=== PATIENT | male | born 1980 | race Caucasian/White ===

== ENCOUNTER 2016-03-24 10:47 | Emergency (ER) | payer OTHER ==
[~2016-03-24] VITALS: Ht 177.8 cm; Wt 94.7 kg
[~2016-03-24 10:47] MED LIST: ALBUAER19 INH; OXYC-57 PO
[2016-03-24 10:49] VITALS: TEMP 37.2; Ht 177.8 cm; Wt 94.7 kg
--- NOTE | 2016-03-24 11:10 | EMERGENCY ROOM VISIT NOTE ---
History Report prepared by Mj: Giovanna Deleon Under the Supervision of: Dr. Pito Buckley M.D. First contact with patient: 10:52 Chief Complaint: ABDOMINAL PAIN Stated Complaint: LOWER RT ABD. PAIN History of Present Illness The patient is a 35 year old male who presents to the Emergency Room with complaints of intermittent right lower quadrant abdominal pain that began yesterday. Today, he currently rates his discomfort as a 7/10 in severity. The patient states that yesterday he experienced the abdominal pain for two hours. He states that the pain went away, but came back this morning. The patient denies any nausea, urinary symptoms, or difficulty moving his bowels. He notes some lightheaded today. The patient states that he has a history of colon cancer, noting that he had 2 feet of his large intestine resected in December 2014. He states that he underwent chemotherapy, but finished his course in August of 2015. The patient denies any radiation treatment. The patient notes increased pain today with movement. Source of History: patient Onset: yesterday Position: abdomen (RLQ) Symptom Intensity: 7/10 Timing: intermittent Modifying Factors (Worsening): movement Associated Symptoms: No nausea Note: Associated Symptoms: lightheaded Review of Systems All systems have been listed, reviewed, and are negative other than those previously mentioned. Please see Additional Medical History Sheet. Past Medical & Surgical Medical Problems: (1) Asthma (2) Colon cancer Surgical Problems: (1) S/P partial resection of colon Family History Cancer Social History Smoking Status: Never Smoker Smokeless Tobacco Use: No Alcohol Use: occasionally Marital Status: single Housing Status: lives alone Occupation Status: employed Current/Historical Medications Scheduled Docusate Sodium (Colace), 100 MG PO BID Scheduled PRN Oxycodone/Acetaminophen 5MG/325MG (Percocet 5MG/325MG), 1-2 TABLETS PO Q4H PRN for Pain Allergies Coded Allergies: No Known Allergies (Unverified , 03/24/16) Physical Exam Vital Signs Date Time Temp Pulse Resp B/P Pulse Ox O2 Delivery O2 Flow Rate FiO2 03/24/16 14:23 94 18 135/89 97 03/24/16 12:25 89 16 147/90 99 Room Air 03/24/16 10:49 37.2 104 18 151/101 97 Room Air Physical Exam GENERAL: Patient awake, alert, oriented x 3. Patient follows commands. Patient does not appear toxic. Patient is adequately hydrated and well- nourished. SKIN: No erythema, pallor, cyanosis or rash HEENT: Normal head, pupils equal, reactive to light and accommodation. LUNGS: Clear to auscultation. No wheezes, no rales, no rhonchi. HEART: No murmurs. No gallops. No rubs ABDOMEN:Right lower quadrant tenderness with questionable rebound and slight guarding. EXTREMITIES: No signs of trauma or infection. NEUROLOGIC: Cranial nerves II-XII within normal limits. No gross motor sensory function deficits. Medical Decision & Procedures ER Provider Diagnostic Interpretation: CT results are interpretations by the radiologist and per my review. CT OF THE ABDOMEN AND PELVIS WITH CONTRAST CLINICAL HISTORY: Right lower quadrant abdominal pain. Colon cancer. COMPARISON STUDY: CT of the abdomen and pelvis January 27, 2016 and PET/CT February 06, 2016. TECHNIQUE: Following IV administration of 110 mL of Optiray-320, axial images of the abdomen and pelvis were obtained from the lung bases to the proximal femurs. Images were reviewed in the axial, sagittal, and coronal planes. IV contrast was administered without complication. Oral contrast was administered. CT DOSE: 536.25 mGy.cm FINDINGS: Lung bases are clear. The liver, adrenal glands, kidneys and pancreas are normal. There is no biliary or pancreatic ductal dilatation mild splenomegaly is unchanged. No pneumatosis, free air or portal venous gas is present. There is no evidence for a bowel obstruction. The appendix is normal. There is no ascites. Multiple peritoneal nodules have increased in size since CT of January 27, 2016. A left omental nodule shown on image 186 of 511 measures 1.4 cm. It previously measured 0.8 cm. An implant inferior to the cecum measures 1.9 cm. It previously measured 1.5 cm. An implant within the left aspect of the pelvis measures 1.7 cm. It previously measured 0.9 cm. Numerous small pelvic implants within the left lower quadrant have increased in size as well. A few new implants are present. No suspicious skeletal lesions are present. IMPRESSION: 1. Increase in size and number of numerous peritoneal implants since CT of January 27, 2016. 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 2. No evidence of bowel obstruction. Normal appendix. Electronically signed by: Victor Manuel Guerrero M.D. 03/24/2016 1:38 PM Dictated Date/Time: 03/24/2016 1:26 PM Laboratory Results 03/24/16 11:15 Red Blood Count 5.54, Mean Corpuscular Volume 80.9, Mean Corpuscular Hemoglobin 30.0, Mean Corpuscular Hemoglobin Concent 37.1, Mean Platelet Volume 10.0, Neutrophils (%) (Auto) 63.7, Lymphocytes (%) (Auto) 25.6, Monocytes (%) (Auto) 9.0, Eosinophils (%) (Auto) 0.7, Basophils (%) (Auto) 0.6, Neutrophils # (Auto) 3.46, Lymphocytes # (Auto) 1.39, Monocytes # (Auto) 0.49, Eosinophils # (Auto) 0.04, Basophils # (Auto) 0.03 03/24/16 11:15 Test 03/24/16 11:11 03/24/16 11:15 Urine Color YELLOW Urine Appearance CLEAR (CLEAR) Urine pH 5.0 (4.5-7.5) Urine Specific [place] 1.021 (1.000-1.030) Urine Protein NEG (NEG) Urine Glucose (UA) NEG (NEG) Urine Ketones TRACE (NEG) Urine Occult Blood NEG (NEG) Urine Nitrite NEG (NEG) Urine Bilirubin NEG (NEG) Urine Urobilinogen NEG (NEG) Urine Leukocyte Esterase NEG (NEG) White Blood Count 5.43 K/uL (4.8-10.8) Red Blood Count 5.54 M/uL (4.7-6.1) Hemoglobin 16.6 g/dL (14.0-18.0) Hematocrit 44.8 % (42-52) Mean Corpuscular Volume 80.9 fL (80-100) Mean Corpuscular Hemoglobin 30.0 pg (25-34) Mean Corpuscular Hemoglobin Concent 37.1 g/dl (32-36) Platelet Count 132 K/uL (130-400) Mean Platelet Volume 10.0 fL (7.4-10.4) Neutrophils (%) (Auto) 63.7 % Lymphocytes (%) (Auto) 25.6 % Monocytes (%) (Auto) 9.0 % Eosinophils (%) (Auto) 0.7 % Basophils (%) (Auto) 0.6 % Neutrophils # (Auto) 3.46 K/uL (1.4-6.5) Lymphocytes # (Auto) 1.39 K/uL (1.2-3.4) Monocytes # (Auto) 0.49 K/uL (0.11-0.59) Eosinophils # (Auto) 0.04 K/uL (0-0.5) Basophils # (Auto) 0.03 K/uL (0-0.2) RDW Standard Deviation 36.6 fL (36.4-46.3) RDW Coefficient of Variation 12.4 % (11.5-14.5) Immature Granulocyte % (Auto) 0.4 % Immature Granulocyte # (Auto) 0.02 K/uL (0.00-0.02) Anion Gap 10.0 mmol/L (3-11) Est Creatinine Clear Calc Drug Dose 101.2 ml/min Estimated GFR () 91.5 Estimated GFR (Non- 79.0 BUN/Creatinine Ratio 14.6 (10-20) Calcium Level 9.7 mg/dl (8.5-10.1) Laboratory results as stated above per my review. ED Course 1054: Past medical records reviewed. The patient was evaluated in room C4. A complete history and physical examination was performed. 1344: I reevaluated the patient and he is resting comfortably. I discussed the exam findings with him and I discussed the treatment plan. He verbalized complete understanding and agreement. He is ready to go home. Medical Decision Nurses notes reviewed. Medical history sheet reviewed. Differential diagnosis includes but is not limited to: Appendicitis bowel obstruction diverticulitis complications from prior colon cancer. The patient was offered pain medication here but declined. Multiple labs, urinalysis and imaging were obtained. Please see above. The patient has lesions on his perineum which are now larger than he were on the last CAT scan. This is most consistent with metastatic disease. According to the patient he was told that he is tumor free. I am concerned that current pain is related to these lesions. The patient has no evidence of a bowel obstruction, diverticulitis, pancreatitis, appendicitis. I discussed results of the tests with him and instructed him to follow-up with oncology within the next 2-3 days. The patient was given a prescription for Percocet. [place] Drug Monitoring Program Search Results: patient reviewed within database, no issues identified Impression Primary Impression: Lesion of peritoneum Additional Impression: History of colon cancer Scribe Attestation The scribe's documentation has been prepared under my direction and personally reviewed by me in its entirety. I confirm that the note above accurately reflects all work, treatment, procedures, and medical decision making performed by me. Departure Information Dispostion Home / Self-Care Prescriptions Docusate Sodium (COLACE) 100 Mg Cap 100 MG PO BID, #20 CAP Prov: Pito Buckley M.D. 03/24/16 Oxycodone/Acetaminophen 5MG/325MG (PERCOCET 5MG/325MG) Tab 1-2 TABLETS PO Q4H Y for Pain, #20 TAB Prov: Pito Buckley M.D. 03/24/16 Referrals Stephen Martinez M.D. (PCP) Forms Call Back Authorization, HOME CARE DOCUMENTATION FORM, IMPORTANT VISIT INFORMATION, My [facility] Patient Instructions A Signature Page Additional Instructions 1-2 Percocet every 4 hours as needed for moderate to severe pain. Do not drive or operate machinery while taking Percocet. 1 Colace twice a day for 10 days. Follow-up with oncology within the next 2-3 days.
[2016-03-24 11:29] LABS: URINE APPEARANCE CLEAR (CLEAR); URINE BILIRUBIN NEG (NEG); URINE COLOR YELLOW; URINE NITRITE NEG (NEG); URINE SPECIFIC GRAVITY 1.021 (1.000-1.030); UROBILINOGEN NEG (NEG); ZZUR CULT IF INDIC CLEAN CATCH NO
[2016-03-24 11:30] LABS: BASO % 0.6 %; BASO ABS # 0.03 K/uL (0-0.2); COMPLETE YES; EOS % 0.7 %; HEMATOCRIT 44.8 % (42-52); IG% 0.4 %; LYMPH % 25.6 %; LYMPH ABS # 1.39 K/uL (1.2-3.4); MEAN CELL VOLUME 80.9 fL (80-100); MEAN CORPUSCULAR HGB CONC 37.1 g/dl (32-36); NEUT % 63.7 %; PLATELET COUNT 132 K/uL (130-400); RED BLOOD COUNT 5.54 M/uL (4.7-6.1); WHITE BLOOD COUNT 5.43 K/uL (4.8-10.8)
[2016-03-24 11:32] LABS: MANUAL MICROSCOPIC REQUIRED? NO; REVIEW REQ? NO
[2016-03-24 11:52] LABS: BUN/CREATININE RATIO 14.6 (10-20); CALCIUM 9.7 mg/dl (8.5-10.1); CREATININE 1.2 mg/dl (0.60-1.40)
[2016-03-24] MEDS ORDERED: OPTIRAY 320 IV PRN (12:45)
--- NOTE | 2016-03-24 13:40 | DIAGNOSTIC IMAGING REPORT ---
CT OF THE ABDOMEN AND PELVIS WITH CONTRAST CLINICAL HISTORY: Right lower quadrant abdominal pain. Colon cancer. COMPARISON STUDY: CT of the abdomen and pelvis January 27, 2016 and PET/CT February 06, 2016. TECHNIQUE: Following IV administration of 110 mL of Optiray-320, axial images of the abdomen and pelvis were obtained from the lung bases to the proximal femurs. Images were reviewed in the axial, sagittal, and coronal planes. IV contrast was administered without complication. Oral contrast was administered. CT DOSE: 536.25 mGy.cm FINDINGS: Lung bases are clear. The liver, adrenal glands, kidneys and pancreas are normal. There is no biliary or pancreatic ductal dilatation mild splenomegaly is unchanged. No pneumatosis, free air or portal venous gas is present. There is no evidence for a bowel obstruction. The appendix is normal. There is no ascites. Multiple peritoneal nodules have increased in size since CT of January 27, 2016. A left omental nodule shown on image 186 of 511 measures 1.4 cm. It previously measured 0.8 cm. An implant inferior to the cecum measures 1.9 cm. It previously measured 1.5 cm. An implant within the left aspect of the pelvis measures 1.7 cm. It previously measured 0.9 cm. Numerous small pelvic implants within the left lower quadrant have increased in size as well. A few new implants are present. No suspicious skeletal lesions are present. IMPRESSION: 1. Increase in size and number of numerous peritoneal implants since CT of January 27, 2016. 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 2. No evidence of bowel obstruction. Normal appendix. Electronically signed by: Victor Manuel Guerrero M.D. 03/24/2016 1:38 PM Dictated Date/Time: 03/24/2016 1:26 PM
[2016-03-24] MEDS ORDERED: OXYC-57 PO (14:01)
[2016-03-24] MEDS ORDERED: DOCU-94 PO (14:01)
[2016-03-24 14:23] VITALS: BP 135/89; PULSE 94; O2SAT 97
[2016-04-05] MEDS ORDERED: OXYC-57 PO (15:50)
[2016-04-05] MEDS ORDERED: VNTHFA/IN INH (15:50)
== END 2016-03-24 14:25 | disposition home or self-care (01) ==
LOC: C.EDC 10:52
DX: K66.9 Disorder of peritoneum, unspecified (principal); Z85.038 Personal history of other malignant neoplasm of large intestine; J45.909 Unspecified asthma, uncomplicated; Z98.890 Other specified postprocedural states; Z80.9 Family history of malignant neoplasm, unspecified

== ENCOUNTER 2016-04-10 05:24 | Day surgery (SDC) | payer OTHER ==
[2016-04-05 15:53] VITALS: BMI 29.0
[~2016-04-10] VITALS: Ht 177.8 cm; Wt 93.2 kg
[~2016-04-10 05:24] MED LIST changes: -ALBUAER19 INH; +VNTHFA/IN INH
[2016-04-10 05:46] VITALS: BP 153/89; PULSE 91; TEMP 36.2; O2SAT 97; Ht 177.8 cm; Wt 93.2 kg
[2016-04-10] MEDS ORDERED: LACTATED RINGER'S 1000ML 1,000 ML IV SCH ×2 (06:00→09:00)
--- NOTE | 2016-04-10 06:16 | History & Physical Bridge Note ---
H&P Re-Evaluation Bridge Note: I have examined the patient, reviewed the History & Physical and in the interval since the performance of the History & Physical I have noted the following changes of clinical significance: No changes noted mother at bedside, pt called office few days ago and now wants a-port placed(this was added to OR consent and pt signed and initial it)
[2016-04-10] MEDS ORDERED: FENTANYL CITRATE INJ 50 MCG/1 ML 2 ML VIAL ONE ×3 (06:52→09:30)
[2016-04-10] MEDS ORDERED: OXYC-57 PO (07:27)
[2016-04-10] MEDS ORDERED: MoRPHine SULFATE PF 1 MG/ML 10 ML AMP/VIAL ONE (07:37)
[2016-04-10] MEDS ORDERED: CEFAZOLIN SOD 1 GM VIAL ONE (07:52)
[2016-04-10] MEDS ORDERED: LIDOCAINE HCL 2% 2 ML VIAL (20MG/ML) ONE (07:52)
[2016-04-10] MEDS ORDERED: ROCURONIUM BROMIDE 10 MG/ML 5 ML VIAL ONE (07:52)
[2016-04-10] MEDS ORDERED: ONDANSETRON INJ 2 MG/ML 2 ML VIAL ONE (07:55)
[2016-04-10] MEDS ORDERED: GLYCOPYRROLATE INJ 0.2 MG/ML VIAL ONE (07:55)
[2016-04-10] MEDS ORDERED: NEOSTIGMINE METHYLSULFATE 5 MG/5 ML SYR ONE (07:55)
[2016-04-10] MEDS ORDERED: BACITRACIN 50000 UNIT VIAL IR ONE (07:57)
[2016-04-10] MEDS ORDERED: KETOROLAC TROMETHAMINE 30 MG/ML VIAL ONE (08:15)
[2016-04-10] MEDS ORDERED: LIDOCAINE/EPINEPHRINE 1% 20 ML VIAL INJ ONE (08:22)
[2016-04-10] MEDS ORDERED: OXYCODONE/ACETAMINOPHEN 5-325 TAB PO PRN (09:00)
[2016-04-10] MEDS ORDERED: MoRPHine SULFATE 4 MG/ML 1 ML CARP\\VIAL IV PRN (09:00)
[2016-04-10] MEDS ORDERED: ONDANSETRON INJ 2 MG/ML 2 ML VIAL IV PRN ×2 (09:00→09:30)
--- NOTE | 2016-04-10 09:00 | Discharge Instructions ---
Discharge Instructions Visit Reason for Visit: Signet Ring Cell Carcinoma Discharge Discharge Diagnosis / Problem: Laparoscopic biopsy, A-port placement Activity Recommendations Activity Limitations: per Instructions/Follow-up section Lifting Limitations: no more than 10 pounds Shower/Bathe: tomorrow Driving or Machine Use: resume 3 days after discharge Anesthesia . Post Anesthesia Instructions: If you have had General Anesthesia or IV Sedation: * Do not drive today. * Resume driving when surgeon permits. * Do not make important decisions or sign legal documents today. * Call surgeon for: 1. Temperature elevations greater than 101 degrees F. 2. Uncontrollable pain. 3. Excessive bleeding. 4. Persistent nausea and vomiting. 5. Medication intolerance (nausea, vomiting or rash). * For nausea and vomiting use only clear liquids such as: tea, soda, bouillon until nausea subsides, then gradually increase diet as tolerated. * If you have any concerns or questions, call your surgeon's office. If physician is unavailable and it is an emergency, call 911 or go to the nearest emergency room. . Instructions / Follow-Up Instructions / Follow-Up Dr. Agudelo in 1 week, call [phone] if you do not already have an appt Diet Recommendations Recommended Home Diet: no limitations Procedures Procedures Performed: Laparoscopic biopsy of abdominal mass Pending Studies Studies pending at discharge: no Medical Emergencies . Who to Call and When: Medical Emergencies: If at any time you feel your situation is an emergency, please call 911 immediately. . Non-Emergent Contact Non-Emergency issues call your: Surgeon Call Non-Emergent contact if: you have a fever, temperature is above 101.5, your pain is not controlled, wound has increased redness . . "Provider Documentation" section prepared by Ludwin Sibley.
--- NOTE | 2016-04-10 09:11 | [facility] Post Operative Brief Note ---
Immediate Operative Summary Operative Date Apr 10, 2016. Pre-Operative Diagnosis Signet cell carcinoma possible rec abdominal wall Post-Operative Diagnosis Same multiple abd wall implants Procedure(s) Performed Laparoscopic Biopsy Abdominal Masses; Aport Insertion Right Subclavian Vein, abdominal irrigation and fluid aspiration Surgeon Dr Agudelo History Tutor Surgeon(s) Ludwin Sibley PA-C Estimated Blood Loss 5ml Findings multiple abd wall implants and umbilical implants Specimens A. Abdominal Mass for genomic assay B. Umbilical Mass C abdominal fluid for cytology Cytology -peritoneal fluid
[2016-04-10] MEDS ORDERED: LIDOCAINE HCL 1% 20 ML VIAL INJ ONE ×2 (09:15→09:16)
[2016-04-10] MEDS ORDERED: PROMETHAZINE HCL INJ 6.25 MG in SODIUM CHLORIDE 0.9% 50ML 50 ML IV PRN (09:30)
[2016-04-10] MEDS ORDERED: ATROPINE SULFATE 0.1 MG/ML 5ML SYR IV PRN (09:30)
[2016-04-10] MEDS ORDERED: EpHEDrine SULFATE INJ 50 MG/ML AMP IV PRN (09:30)
--- NOTE | 2016-04-10 09:47 | DIAGNOSTIC IMAGING REPORT ---
CHEST ONE VIEW PORTABLE HISTORY: port placement COMPARISON: None. FINDINGS: The cardiac silhouette is mildly enlarged. There are low lung volumes. No focal lung consolidations to suggest pneumonia. No evidence for pulmonary edema. No pleural effusions. No pneumothorax. The right subclavian Port-A-Cath terminates in the right atrium. There is an old, healed right clavicle fracture. IMPRESSION: The right subclavian Port-A-Cath terminates in the right atrium. No pneumothorax. Electronically signed by: Sean Newton M.D. 04/10/2016 9:46 AM Dictated Date/Time: 04/10/2016 9:41 AM
[2016-04-10] MEDS ORDERED: NURSING VERBAL MED ORDER ONE ×2 (09:50→10:10)
[2016-04-10] MEDS: FENTANYL CITRATE INJ 50 MCG/1 ML 2 ML VIAL IV PRN ×2 (09:54→10:00)
--- NOTE | 2016-04-10 10:08 | OPERATIVE REPORT ---
DATE OF OPERATION: 04/10/2016 SURGEON: Dr. Agudelo. VESSEL SCRAPPER: CHELY Knight. 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 PROCEDURE: Laparoscopy, excisional biopsy of about 1.5 cm abdominal wall implant in the right lower quadrant, abdominal washout, A-port placement through the right subclavian, excisional of umbilical implant. SUMMARY: The patient was brought into the operating room theater. The abdomen was shaved and prepped with Betadine solution and properly draped. Systemic antibiotics were given. We did a laparoscopy first. The patient had what appeared to be almost some type of granulation tissue at the umbilical depth. As we cleaned this out this obviously looked like it was going to probably a Sister Clarita Arellano's node. We left this alone for now and made an incision supraumbilically sufficient enough to grab the abdominal wall with a Wanda clamp. We entered the abdominal cavity under direct visualization with a 5 mm trocar. CO2 insufflated. At this point, once we were in the abdomen, we could see aside from what was seen by CAT scan, the patient may have had multiple other implants and pictures of these were taken of all the abdominal wall mostly. I did not see any true omental implants, it seemed to be mostly abdominal wall. At this point, we then were able to excise by placing a 5 mm trocar in the right upper quadrant and one in the left upper quadrant. A nodule which was in the right lower quadrant, about 1.5 cm in size. We first incised the peritoneum around it and took it out intact. This was growing intramuscularly, probably explaining the patient's pain that he had in the right lower quadrant. Electrocautery was used to cauterize around the area. We placed this in an Endopouch and took it out intact through the umbilical port. Of note, prior to us maneuvering within the abdominal wall implants, we irrigated the abdominal cavity with some saline and took out some washout down in the pelvic area. This was placed in a trap and sent for cytology. Once this had been completed, we then closed the incision we made in the supraumbilical area with 2-0 nylon suture by placing inside intraabdominally using a suture passer and placing it out on top. We then, using electrocautery, we completely excised the umbilical implant which was about 0.5 cm to 1 cm in size in the depth of the wound. We stayed away making sure that we grossly did not leave any tumor behind. The individual trocars had been removed. We closed the wounds with 2-0 Dexon subcutaneously for the umbilical excision site and the initial opening, and 4-0 Monocryl. Steri-Strips applied. At this point, we then reprepped the subclavian area under sterile condition in a new set up. A roll had been placed underneath the clavicles. Placed the patient in Trendelenburg position. We then accessed the subclavian vein without any difficulty. With single passage followed guidewire that went in the superior vena cava. At this point fluoroscopically this was positioned. We then made a counter incision about an inch or so below that, about 2 cm in size, deepened through subcutaneous tissue. We went on and created a pocket for the reservoir. We denuded the subcutaneous fat sufficiently enough that it would easily palpate. At this point, the guidewire was then brought up into this open wound and then we placed the 7 [place] introducer without any difficulty and placed the catheter, and went without any difficulty into the area, but it wanted to go mostly into the crossover towards the left side. After manipulating it a while, we were able then to place it down into the superior vena cava right atrial area. Our imaging showed it probably was more in the atrial area, but the patient was quite big, so once he sits up I think it would be in more proper position. We attached it to the reservoir and a black bolster and secured it in place. We aspirated and flushed easily. We imaged the area and it was without any problem. We then stitched the reservoir to the subcutaneous tissue with a nylon suture x3. We closed the wound in multiple layers of 2-0 and 2-0 Dexon and 4-0 Monocryl and Steri-Strips applied. The procedure was tolerated well by the patient. Minimal blood loss. The patient was taken to recovery room in good condition. I attest to the content of the Intraoperative Record and any orders documented therein. Any exceptio ns are noted below.
[2016-04-10] MEDS ORDERED: HYDROmorphone INJ 1 MG/ML SYR ONE (10:10)
[2016-04-10 10:53] VITALS: BP 135/87; PULSE 78; TEMP 37.1; O2SAT 97
[2016-04-10 11:21] VITALS: BP 140/75; PULSE 86; TEMP 37.1; O2SAT 93
--- NOTE | 2016-04-10 11:24 | Anesthesiology Progress Note ---
Anesthesia Post Op Note Date & Time Apr 10, 2016 at 11:24 Vital Signs Pain Intensity: 5 Vital Signs Past 12 Hours Date Time Temp Pulse Resp B/P Pulse Ox O2 Delivery O2 Flow Rate FiO2 04/10/16 10:53 37.1 78 16 135/87 97 Room Air 04/10/16 10:45 36.9 72 12 133/77 99 Nasal Cannula 2 04/10/16 10:35 71 19 114/75 96 Nasal Cannula 2 04/10/16 10:25 64 12 132/82 99 Nasal Cannula 2 04/10/16 10:15 70 13 155/80 100 Nasal Cannula 2 04/10/16 10:05 63 12 150/74 99 Nasal Cannula 2 04/10/16 09:55 59 12 137/87 99 Nasal Cannula 2 04/10/16 09:45 57 12 139/85 99 Nasal Cannula 2 04/10/16 09:35 59 20 124/98 98 Nasal Cannula 2 04/10/16 09:25 69 12 149/79 100 Nasal Cannula 4 04/10/16 09:15 36.1 107 16 140/94 98 Nasal Cannula 4 04/10/16 05:46 36.2 91 20 153/89 97 Room Air Notes Mental Status: alert / awake / arousable, participated in evaluation Pt Amnestic to Procedure: Yes Nausea / Vomiting: adequately controlled Pain: adequately controlled Airway Patency, RR, SpO2: stable & adequate BP & HR: stable & adequate Hydration State: stable & adequate Anesthetic Complications: no major complications apparent Pain adequately controlled after fentanyl and dilaudid
[2016-04-10 11:50] VITALS: BP 122/75; PULSE 71; O2SAT 99
[2016-04-10 12:50] VITALS: BP 112/75; PULSE 88; TEMP 36.7; O2SAT 94
== END 2016-04-10 13:25 | disposition home or self-care (01) ==
LOC: C.ACU 05:24
PROVIDERS: ATTEND Surgery
DX: C18.7 Malignant neoplasm of sigmoid colon (principal); C49.4 Malignant neoplasm of connective and soft tissue of abdomen; J45.909 Unspecified asthma, uncomplicated; E66.9 Obesity, unspecified; Z85.038 Personal history of other malignant neoplasm of large intestine; Z68.30 Body mass index [BMI] 30.0-30.9, adult; Z80.0 Family history of malignant neoplasm of digestive organs; Z82.49 Family history of ischemic heart disease and other diseases of the circulatory system

== ENCOUNTER → 2016-07-31 | Outpatient (CLI) | payer OTHER ==
[~2016-07-31] MED LIST changes: +IBUP600T44 PO; +MRN5 PO; +OXYC1TAB3 PO; +TRAM-10 PO
--- NOTE | 2016-07-31 12:43 | DIAGNOSTIC IMAGING REPORT ---
CHEST CT WITH CONTRAST CT DOSE: 901.36 mGy.cm HISTORY: Colon carcinoma COLON CA TECHNIQUE: Multiaxial CT images of the chest were performed following the intravenous administration of contrast. COMPARISON: 01/19/2015, PET/CT 04/02/2016 FINDINGS: The lungs are clear. The mediastinal vascular structures are within normal limits. No mediastinal or hilar lymphadenopathy. No pleural effusion or pneumothorax. Limited views of the upper abdomen demonstrate a normal liver. The spleen is somewhat progressive in terms of size IMPRESSION: 1. No significant abnormality identified within the chest. 2. Mildly progressive splenomegaly Electronically signed by: Stephen Abarca M.D. 07/31/2016 12:42 PM Dictated Date/Time: 07/31/2016 12:38 PM
--- NOTE | 2016-07-31 12:50 | DIAGNOSTIC IMAGING REPORT ---
CT SCAN OF THE ABDOMEN AND PELVIS WITH IV CONTRAST CLINICAL HISTORY: Colon cancer. COMPARISON STUDY: 03/24/2016 TECHNIQUE: Following the IV administration of 117 cc of Optiray 320, CT scan of the abdomen and pelvis is performed from the lung bases to the proximal femora. Images are reviewed in the axial, sagittal, and coronal planes. IV contrast was administered without complication. Automated dose control exposure was utilized. The patient vomited the majority of the enteric contrast. FINDINGS: Lung bases: The tip of a central venous infusion port terminates at the cavoatrial junction. The heart is normal in size and without pericardial effusion. The lung bases are clear. Liver: The contrast-enhanced liver is normal in size, contour, and attenuation. There is no intrahepatic biliary ductal dilatation. The hepatic veins and portal veins are patent. Gallbladder: Unremarkable. Spleen: The spleen is enlarged measuring 16 cm in length. Pancreas: Unremarkable. Adrenal glands: Unremarkable. Kidneys: The contrast enhanced kidneys are normal in size and without hydronephrosis. The kidneys enhance symmetrically. Abdominal vasculature: The abdominal aorta is normal in course and caliber. Bowel: No bowel obstruction is seen. There is mild colonic fecal retention. The appendix is well-visualized and normal. Peritoneum: There is no intraperitoneal free air or abdominal ascites. There is a tiny fat-containing umbilical hernia. Numerous peritoneal implants are again identified. There has been a mixed response as compared to the 03/24/2016 examination with overall progression of disease. A solar sales representative lesion in the deep pelvis on image #391 has decreased in size, now measuring up to 0.8 cm in thickness (previously measured up to 1.7 cm). A lesion in the left anterior pelvis seen on image #353 has increased in size measuring 2.3 x 1.6 cm (previously measuring 2.0 x 0.9 cm). A lesion on image #365 in the anterior left pelvis has also increased in size measuring up to 1.3 cm (previously measuring up to 1.1 cm). A lesion in the left upper pelvic mesentery seen on image #211 measures 2.0 x 2.1 cm (previously measuring 1.5 x 1.7 cm). Additional lesions in the right lower quadrant on image #308 and in the left upper quadrant image #184 have also increased in size. Lymphadenopathy: None. Pelvic viscera: The bladder, prostate, and seminal vesicles are normal as imaged. Skeletal structures: No lytic or blastic lesions are seen. There is a left-sided pars defect at L5. IMPRESSION: 1. Mixed response with overall progression of peritoneal metastatic disease as compared to 03/24/2016. 2. No abdominal ascites is identified. 3. No bowel obstruction is seen. 4. Splenomegaly. Electronically signed by: Rayo Lopez M.D. 07/31/2016 12:49 PM Dictated Date/Time: 07/31/2016 12:39 PM
== END ==
LOC: C.CTS 09:54
PROVIDERS: ATTEND Nurse Practitioner Family
DX: C18.7 Malignant neoplasm of sigmoid colon (principal)

== ENCOUNTER → 2016-10-09 | Outpatient (CLI) | payer OTHER ==
[~2016-10-09] MED LIST changes: -IBUP600T44 PO; -MRN5 PO; +OPTIRAY 320 IV PRN; -OXYC1TAB3 PO; -TRAM-10 PO
--- NOTE | 2016-10-09 09:22 | DIAGNOSTIC IMAGING REPORT ---
ABD/PELVIS IV AND ORAL CONT CT DOSE: HISTORY: Colon carcinoma COLON CA TECHNIQUE: Multiaxial CT images of the abdomen and pelvis were performed following the use of intravenous and oral contrast. A dose lowering technique was utilized adhering to the principles of ALARA. COMPARISON STUDY: 07/31/2016 FINDINGS: Lung bases are clear. Liver is homogeneous. Gallbladder is negative for distention. Kidneys enhance uniformly. Spleen remains moderately enlarged. It is unchanged from the prior exam. Pancreas is uniform. Moderate increase in fecal load throughout the colon consistent with a component of fecal stasis. This is unchanged. 1.6 cm pericolonic nodule is unchanged. All additional omental/mesenteric implants remain stable. There are no new or interval findings. Left lateral pelvic sidewall nodule remains stable. Bladder is midline. There is no free fluid within the pelvic cul-de-sac. Osseous structures appear unremarkable. IMPRESSION: Stable peritoneal metastatic disease. No change compared to the prior exam. No new or interval findings. Mild stable splenomegaly. The above report was generated using voice recognition software. It may contain grammatical, syntax or spelling errors. Electronically signed by: Stephen Abarca M.D. 10/09/2016 9:20 AM Dictated Date/Time: 10/09/2016 9:14 AM
--- NOTE | 2016-10-09 09:27 | DIAGNOSTIC IMAGING REPORT ---
CT OF THE CHEST WITH IV CONTRAST CLINICAL HISTORY: Colon cancer. COMPARISON STUDY: Chest CT July 31, 2016 and PET/CT April 02, 2016. TECHNIQUE: Following IV administration of 116 mL of Optiray-320, helical axial images of the chest were obtained. Sagittal and coronal reconstructions were viewed as well as maximal intensity projections on an independent 3-D workstation. A dose lowering technique was utilized adhering to the principles of ALARA. CT DOSE: 1538.62 mGycm FINDINGS: No enlarged axillary, mediastinal or hilar lymph nodes are present. The size of the heart is normal. There is no pericardial effusion. A right subclavian [id number] is in place. There is bilateral gynecomastia. The central airways are patent. There are no pulmonary nodules. No suspicious osseous lesions are present. No pneumothorax or pleural effusion is present. The abdomen and pelvis will be reported separately. Mild splenomegaly is unchanged. IMPRESSION: No evidence of metastatic disease within the chest. Electronically signed by: Victor Manuel Guerrero M.D. 10/09/2016 9:26 AM Dictated Date/Time: 10/09/2016 9:14 AM
== END | disposition home or self-care (01) ==
LOC: C.CTS 06:40
PROVIDERS: ATTEND Nurse Practitioner Family
DX: C18.7 Malignant neoplasm of sigmoid colon (principal)

== ENCOUNTER → 2016-12-20 | Outpatient (CLI) | payer OTHER ==
--- NOTE | 2016-12-20 12:10 | DIAGNOSTIC IMAGING REPORT ---
CT OF THE ABDOMEN AND PELVIS WITH CONTRAST CLINICAL HISTORY: Colon cancer. COMPARISON STUDY: PET CT April 02, [address] of the abdomen and pelvis October 09, 2016. TECHNIQUE: Following IV administration of 100 mL of Optiray-320, axial images of the abdomen and pelvis were obtained from the lung bases to the proximal femurs. Images were reviewed in the axial, sagittal, and coronal planes. IV contrast was administered without complication. A dose lowering technique was utilized adhering to the principles of ALARA. Oral contrast was administered. FINDINGS: The chest CT will be reported separately. The liver, adrenal glands, kidneys and pancreas are normal. Mild splenomegaly is unchanged. There is no biliary or pancreatic ductal dilatation. There is no evidence for a bowel obstruction. Numerous peritoneal/omental implants are noted. Several these are unchanged however the majority have mildly increased in size since CT of October 09, 2016. A left omental implant shown on image 38 of 103 measures 1.8 cm. It previously measured 1.7 cm. A midline supraumbilical implant shown on image 45 measures 1.1 cm. It previously measured 0.8 cm. A left lower quadrant mesenteric implant measures 2.8 cm. It previously measured 2.1 cm. Right paracolic gutter implant shown image 59 measures 2 cm. It previously measured 1.9 cm. Peritoneal implants within the central aspect of the pelvis have increased. These now measure 3.4 cm in aggregate. These previously measured 2.4 cm. No suspicious osseous lesions are present. No hydronephrosis is present. IMPRESSION: Mild increase in size and number of numerous peritoneal implants since CT of October 09, 2016 with moderate increase in size of a left lower quadrant mesenteric implant. The findings represent moderate progression of peritoneal spread of malignancy. Electronically signed by: Victor Manuel Guerrero M.D. 12/20/2016 12:09 PM Dictated Date/Time: 12/20/2016 11:58 AM
--- NOTE | 2016-12-20 12:10 | DIAGNOSTIC IMAGING REPORT ---
(CHEST) THORAX WITH CLINICAL HISTORY: 36 years-old Male presenting with COLON CA C18.7, follow-up. TECHNIQUE: Multidetector CT imaging of the chest was performed after the administration of intravenous contrast. IV contrast: 100 mL of Optiray 320. A dose lowering technique was used consistent with the principles of ALARA (as low as reasonably achievable). COMPARISON: 10/09/2016. CT DOSE (mGy.cm): The estimated cumulative dose is 1312.46 mGy.cm. FINDINGS: Plate Grainer topogram: Unremarkable. On soft tissue windows, bilateral gynecomastia. Normal thyroid and thoracic inlet. Right subclavian Mediport terminates in the SVC. No axillary, supraclavicular, hilar, or mediastinal lymphadenopathy. Normal aorta. Normal heart size. No pericardial or pleural effusion. The spleen is incompletely imaged but appears prominent. On lung windows, no focal infiltrate or nodule. Airways patent. On bone windows, normal osseous structures. IMPRESSION: 1. No evidence of intrathoracic metastatic disease. Electronically signed by: Bridger Noriega M.D. 12/20/2016 12:09 PM Dictated Date/Time: 12/20/2016 12:01 PM
== END | disposition home or self-care (01) ==
LOC: C.CTS 09:31
PROVIDERS: ATTEND Nurse Practitioner Family
DX: C18.7 Malignant neoplasm of sigmoid colon (principal)

== ENCOUNTER 2017-01-03 09:25 | Emergency (ER) | payer OTHER ==
[~2017-01-03] VITALS: Ht 177.8 cm; Wt 100.2 kg
[~2017-01-03 09:25] MED LIST changes: -OPTIRAY 320 IV PRN
[2017-01-03 09:28] VITALS: TEMP 37.1; Ht 177.8 cm; Wt 100.2 kg
[2017-01-03] MEDS ORDERED: ONDANSETRON INJ 2 MG/ML 2 ML VIAL IV STA (09:43)
[2017-01-03] MEDS ORDERED: SODIUM CHLORIDE 0.9% 1000ML 2,000 ML IV STA (09:43)
[2017-01-03] MEDS ORDERED: MoRPHine SULFATE 10 MG/ML CARP/VIAL IV STA ×2 (09:43→11:33)
[2017-01-03] MEDS ORDERED: TRAM-10 PO (09:53)
[2017-01-03] MEDS ORDERED: IBUP600T44 PO (09:53)
[2017-01-03] MEDS ORDERED: MRN5 PO (09:53)
[2017-01-03 09:57] LABS: BASO % 0.5 %; BASO ABS # 0.03 K/uL (0-0.2); COMPLETE YES; HEMATOCRIT 42.5 % (42-52); IG% 0.2 %; LYMPH % 16.6 %; LYMPH ABS # 0.99 K/uL (1.2-3.4); MEAN CELL VOLUME 83.3 fL (80-100); MEAN PLATELET VOLUME 9.6 fL (7.4-10.4); MONO % 8.7 %; PLATELET COUNT 150 K/uL (130-400); WHITE BLOOD COUNT 5.96 K/uL (4.8-10.8)
[2017-01-03 10:03] LABS: ISTAT CREATININE 0.9 mg/dl (0.6-1.3); ISTAT HEMOGLOBIN 15.3 g/dl (14.0-18.0); ISTAT IONIZED CALCIUM 1.2 mmol/l (1.12-1.32)
[2017-01-03 10:14] LABS: BUN/CREATININE RATIO 10.3 (10-20); CALCIUM 9.1 mg/dl (8.5-10.1); CREATININE 0.94 mg/dl (0.60-1.40); POTASSIUM 3.8 mmol/L (3.5-5.1)
--- NOTE | 2017-01-03 10:34 | DIAGNOSTIC IMAGING REPORT ---
CT ABD/PELVIS IV CONTRAST ONLY CLINICAL HISTORY: Rectal carcinoma. Coccygeal pain. COMPARISON STUDY: 10 x 17 TECHNIQUE: Following the IV administration of 94 mL of Optiray-320, CT scan of the abdomen and pelvis was performed from the lung bases to the proximal femurs. Images are reviewed in the axial, sagittal, and coronal planes. IV contrast was administered without complication. A dose lowering technique was utilized adhering to the principles of ALARA. CT DOSE: 1170.28 mGycm FINDINGS: Lower chest: There are minimal bibasilar atelectatic changes Liver: The contrast-enhanced liver is normal in size, contour, and attenuation. There is no intrahepatic biliary ductal dilatation. The hepatic veins and portal veins are patent. Gallbladder: Equivocal cholelithiasis Spleen: Top normal in size measuring 12 cm Pancreas: Unremarkable. Adrenal glands: Unremarkable. Kidneys: There is symmetric renal cortical enhancement. The kidneys are normal in size without hydronephrosis. Bowel: There are no transition zone to indicate bowel obstruction. There is no acute diverticulitis. There is no evidence of acute appendicitis. Peritoneum: No free air is visualized. There is no significant ascites. There are multiple peritoneal nodules consistent with metastatic disease. The nodules appear slightly larger than on the preceding study. Vasculature: The abdominal aorta is normal in course and caliber. Adenopathy: None. Pelvic viscera: The bladder, and pelvic viscera are unremarkable. Skeletal structures: There is a left L5 pars defect area no destructive lesions are visualized. IMPRESSION: 1. Slight further increase in the size and number of multiple peritoneal implants, consistent with progressive metastatic disease. 2. No evidence of bowel obstruction. No evidence of free air Electronically signed by: Pankaj Bustos M.D. 01/03/2017 10:32 AM Dictated Date/Time: 01/03/2017 10:26 AM
[2017-01-03 11:34] LABS: URINE APPEARANCE CLEAR (CLEAR); URINE BILIRUBIN NEG (NEG); URINE COLOR YELLOW; URINE EPITHELIAL CELL AUTO 0-5 /lpf (0-5); URINE NITRITE NEG (NEG); URINE SPECIFIC GRAVITY 1.025 (1.000-1.030); UROBILINOGEN NEG (NEG); ZZUR CULT IF INDIC CLEAN CATCH NO
[2017-01-03 11:37] LABS: MANUAL MICROSCOPIC REQUIRED? NO; REVIEW REQ? NO
[2017-01-03] MEDS ORDERED: MoRPHine SULFATE 4 MG/ML 1 ML CARP\\VIAL ONE (11:56)
[2017-01-03] MEDS ORDERED: MoRPHine SULFATE 2 MG/ML CARP ONE (11:56)
[2017-01-03] MEDS ORDERED: OXYC1TAB3 PO (12:32)
[2017-01-03 12:57] VITALS: BP 133/87; PULSE 81; O2SAT 95
--- NOTE | 2017-01-03 14:58 | EMERGENCY ROOM VISIT NOTE ---
History Report prepared by Mj: Clifford Navarro Under the Supervision of: Dr. Brian Sarkar D.O. First contact with patient: 09:33 Chief Complaint: ABDOMINAL PAIN Stated Complaint: SEVERE PAIN/TORSO, ABD. Nursing Triage Summary: Pain in the tailbone area and also abdominal pain. pt states that he just finished his last chemo treatment (30 in total) for colon cancer. Pain in the tailbone started last week, was coming and going, now constant and feels worse per the pt. Denies injury. Took tramadol at approx 0700, hydrocodone at 0830 and marinol at approx 0900 History of Present Illness The patient is a 36 year old male who presents to the Emergency Room with complaints of pain to his tailbone that began last week. He rates his pain a 9/ 10 in severity. The patient has a history of colorectal cancer and resections with metastasis to his abdomen. He has baseline abdominal pain secondary to his metastases, however the tail bone pain is new. He finished his 30th chemotherapy treatment 3 weeks ago but needs to see a specialist in [place] because he states that the treatment did not work. He denies any fevers, nausea , vomiting, diarrhea, chest pain, shortness of breath, abnormal urinary symptoms , melena, hematochezia, recent trauma, or pain with defecation. He denies any family history of cancers. He has been having 3 bowel movements a day. No pain with bowel movements. No blood in stool. They're not loose. No pain with urination Source of History: patient Onset: 1 week ago Position: other (Tail bone) Symptom Intensity: 9/10 Quality: ache Timing: constant Associated Symptoms: + abdominal pain, No fevers, No chest pain, No SOB, No nausea, No vomiting, No melena, No hematochezia, No diarrhea, No urinary symptoms Review of Systems See HPI for pertinent positives & negatives. A total of 10 systems reviewed and were otherwise negative. Past Medical & Surgical Medical Problems: (1) Asthma (2) Colon cancer Surgical Problems: (1) S/P partial resection of colon Family History Cancer Social History Smoking Status: Never Smoker Alcohol Use: occasionally Marital Status: single Housing Status: lives alone Occupation Status: employed Current/Historical Medications Scheduled Dronabinol (Marinol), 5 MG PO TID Ibuprofen (Motrin), 600 MG PO DAILY Scheduled PRN Oxycodone Immediate Rel Tab (Roxicodone Ir), 5 MG PO Q4H PRN for Severe Pain Oxycodone/Acetaminophen 5MG/325MG (Percocet 5MG/325MG), 1 TAB PO BID PRN for Pain Tramadol (Ultram), 50 MG PO BID PRN for Pain Allergies Coded Allergies: No Known Allergies (Unverified , 01/03/17) Physical Exam Vital Signs Date Time Temp Pulse Resp B/P (MAP) Pulse Ox O2 Delivery O2 Flow Rate FiO2 01/03/17 12:57 81 20 133/87 95 01/03/17 12:48 80 01/03/17 12:01 88 20 148/91 99 Room Air 01/03/17 11:13 115 18 145/94 97 Room Air 01/03/17 09:42 78 01/03/17 09:28 37.1 128 20 144/99 96 Room Air Physical Exam GENERAL: Sitting up in bed, alert, chronically ill appearing, disheveled, minimal distress, non-toxic EYE EXAM: normal conjunctiva OROPHARYNX: no exudate, no erythema, lips, buccal mucosa, and tongue normal and mucous membranes are moist NECK: supple, no nuchal rigidity, no adenopathy, non-tender LUNGS: Clear to auscultation. Normal chest wall mechanics HEART: no murmurs, S1 normal and S2 normal ABDOMEN: abdomen soft, non-tender, normo-active bowel sounds, no masses, no rebound or guarding. Multiple old incisions that are intact. BACK: Back is symmetrical on inspection and there is no deformity, no midline tenderness, no CVA tenderness. SKIN: no rashes and no bruising UPPER EXTREMITIES: upper extremities are grossly normal. LOWER EXTREMITIES: No pitting edema. NEURO EXAM: Normal sensorium, cranial nerves II-XII grossly intact, normal speech, no gross weakness of arms, no gross weakness of legs. Medical Decision & Procedures ER Provider Diagnostic Interpretation: Radiology results as stated below per my review and the radiologist's interpretation: CT ABD/PELVIS IV CONTRAST ONLY CLINICAL HISTORY: Rectal carcinoma. Coccygeal pain. COMPARISON STUDY: x 17 TECHNIQUE: Following the IV administration of 94 mL of Optiray-320, CT scan of the abdomen and pelvis was performed from the lung bases to the proximal femurs. Images are reviewed in the axial, sagittal, and coronal planes. IV contrast was administered without complication. A dose lowering technique was utilized adhering to the principles of ALARA. CT DOSE: 1170.28 mGycm FINDINGS: Lower chest: There are minimal bibasilar atelectatic changes Liver: The contrast-enhanced liver is normal in size, contour, and attenuation. There is no intrahepatic biliary ductal dilatation. The hepatic veins and portal veins are patent. Gallbladder: Equivocal cholelithiasis Spleen: Top normal in size measuring 12 cm Pancreas: Unremarkable. Adrenal glands: Unremarkable. Kidneys: There is symmetric renal cortical enhancement. The kidneys are normal in size without hydronephrosis. Bowel: There are no transition zone to indicate bowel obstruction. There is no acute diverticulitis. There is no evidence of acute appendicitis. Peritoneum: No free air is visualized. There is no significant ascites. There are multiple peritoneal nodules consistent with metastatic disease. The nodules appear slightly larger than on the preceding study. Vasculature: The abdominal aorta is normal in course and caliber. Adenopathy: None. Pelvic viscera: The bladder, and pelvic viscera are unremarkable. Skeletal structures: There is a left L5 pars defect area no destructive lesions are visualized. IMPRESSION: 1. Slight further increase in the size and number of multiple peritoneal implants, consistent with progressive metastatic disease. 2. No evidence of bowel obstruction. No evidence of free air Electronically signed by: Pankaj Bustos M.D. 01/03/2017 10:32 AM Dictated Date/Time: 01/03/2017 10:26 AM Laboratory Results 01/03/17 09:45 Red Blood Count 5.10, Mean Corpuscular Volume 83.3, Mean Corpuscular Hemoglobin 30.0, Mean Corpuscular Hemoglobin Concent 36.0, Mean Platelet Volume 9.6, Neutrophils (%) (Auto) 73.0, Lymphocytes (%) (Auto) 16.6, Monocytes (%) (Auto) 8.7, Eosinophils (%) (Auto) 1.0, Basophils (%) (Auto) 0.5, Neutrophils # (Auto) 4.35, Lymphocytes # (Auto) 0.99, Monocytes # (Auto) 0.52, Eosinophils # (Auto) 0.06, Basophils # (Auto) 0.03 01/03/17 09:45 Test 01/03/17 09:45 01/03/17 09:49 01/03/17 11:15 White Blood Count 5.96 K/uL (4.8-10.8) Red Blood Count 5.10 M/uL (4.7-6.1) Hemoglobin 15.3 g/dL (14.0-18.0) Hematocrit 42.5 % (42-52) Mean Corpuscular Volume 83.3 fL (80-100) Mean Corpuscular Hemoglobin 30.0 pg (25-34) Mean Corpuscular Hemoglobin Concent 36.0 g/dl (32-36) Platelet Count 150 K/uL (130-400) Mean Platelet Volume 9.6 fL (7.4-10.4) Neutrophils (%) (Auto) 73.0 % Lymphocytes (%) (Auto) 16.6 % Monocytes (%) (Auto) 8.7 % Eosinophils (%) (Auto) 1.0 % Basophils (%) (Auto) 0.5 % Neutrophils # (Auto) 4.35 K/uL (1.4-6.5) Lymphocytes # (Auto) 0.99 K/uL (1.2-3.4) Monocytes # (Auto) 0.52 K/uL (0.11-0.59) Eosinophils # (Auto) 0.06 K/uL (0-0.5) Basophils # (Auto) 0.03 K/uL (0-0.2) RDW Standard Deviation 39.0 fL (36.4-46.3) RDW Coefficient of Variation 13.1 % (11.5-14.5) Immature Granulocyte % (Auto) 0.2 % Immature Granulocyte # (Auto) 0.01 K/uL (0.00-0.02) Est Creatinine Clear Calc Drug Dose 131.4 ml/min Estimated GFR () 122.1 Estimated GFR (Non- 105.4 BUN/Creatinine Ratio 10.3 (10-20) Calcium Level 9.1 mg/dl (8.5-10.1) Total Bilirubin 0.8 mg/dl (0.2-1) Direct Bilirubin 0.2 mg/dl (0-0.2) Aspartate Amino Transf (AST/SGOT) 15 U/L (15-37) Alanine Aminotransferase (ALT/SGPT) 26 U/L (12-78) Alkaline Phosphatase 82 U/L (45-117) Total Protein 7.6 gm/dl (6.4-8.2) Albumin 3.8 gm/dl (3.4-5.0) Lipase 123 U/L (73-393) Bedside Hemoglobin 15.3 g/dl (14.0-18.0) Bedside Hematocrit 45 % (42-52) Bedside Sodium 139 mEq/L (135-144) Bedside Potassium 3.8 mEq/L (3.3-5.0) Bedside Chloride 101 mEq/L (101-112) Bedside Total CO2 27 mEq/l (24-31) Anion Gap 16.0 mmol/L (16-25) Bedside Blood Urea Nitrogen 9 mg/dl (7-18) Bedside Creatinine 0.9 mg/dl (0.6-1.3) Bedside Glucose (other) 113 mg/dl (70-99) Bedside Ionized Calcium ([place]) 1.20 mmol/l (1.12-1.32) Urine Color YELLOW Urine Appearance CLEAR (CLEAR) Urine pH 7.0 (4.5-7.5) Urine Specific [place] 1.025 (1.000-1.030) Urine Protein NEG (NEG) Urine Glucose (UA) NEG (NEG) Urine Ketones NEG (NEG) Urine Occult Blood NEG (NEG) Urine Nitrite NEG (NEG) Urine Bilirubin NEG (NEG) Urine Urobilinogen NEG (NEG) Urine Leukocyte Esterase NEG (NEG) Urine WBC (Auto) 0 /hpf (0-5) Urine RBC (Auto) 0-4 /hpf (0-4) Urine Hyaline Casts (Auto) 0 /lpf (0-5) Urine Epithelial Cells (Auto) 0-5 /lpf (0-5) Urine Bacteria (Auto) NEG (NEG) Laboratory results per my review. Medications Administered Medications (Trade) Dose Ordered Sig/Luis Manuel Route Start Time Stop Time Status Last Admin Dose Admin Sodium Chloride 2,000 ml @ 999 mls/hr Q2H1M STAT IV 01/03/17 09:43 01/03/17 11:43 DC 01/03/17 09:55 999 MLS/HR Ondansetron HCl (Zofran Inj) 4 mg NOW STAT IV 01/03/17 09:43 01/03/17 09:59 DC 01/03/17 09:55 4 MG Morphine Sulfate (MoRPHine SULFATE INJ) 6 mg NOW STAT IV 01/03/17 09:43 10/19/17 09:59 DC 01/03/17 09:56 6 MG Morphine Sulfate (MoRPHine SULFATE INJ) 2 mg STK-MED ONCE .ROUTE 01/03/17 11:56 01/03/17 11:57 DC 01/03/17 11:58 2 MG Morphine Sulfate (MoRPHine SULFATE INJ) 4 mg STK-MED ONCE .ROUTE 01/03/17 11:56 01/03/17 11:57 DC 01/03/17 11:59 4 MG ECG Indication: abdominal pain Rate (beats per minute): 112 Rhythm: sinus tachycardia Findings: no ectopy, other (Normal axis) ED Course ED COURSE: Vital signs were reviewed and showed tachycardia. The patients medical record was reviewed The above diagnostic studies were performed and reviewed. ED treatments and interventions as stated above. 0933: The patient was evaluated in room A12. A complete history and physical examination was performed. 0943: Ordered Morphine Sulfate 6 mg IV, Zofran Inj 4 mg IV, Sodium Chloride 2000 ml @ 999 mls/hr IV 1133: Ordered Morphine Sulfate 6 mg IV 1146: I spoke with Dr. Huber of Oncology at this time. He agrees with the treatment plan. 1300: Upon reevaluation, the patient is resting. I discussed my findings with the patient and he understands and agrees with the treatment plan. Based on the patients age, coexisting illnesses, exam and lab findings the decision to treat as an outpatient was made. The patient remained stable while under my care. The patient appeared well at the time of discharge. Medical Decision Differential diagnoses includes but is not limited to gastritis, peptic ulcer disease, GERD, gallbladder disease, pancreatitis, small bowel obstruction, acute coronary syndrome, pericarditis, ischemic bowel, irritable bowel disease, irritable bowel syndrome, appendicitis, diverticulitis, malignancy, hernia, urinary tract infection, torsion, perforation, trauma, infectious. Patient is a 36-year-old male who presents to ER with past medical history colorectal cancer on chemotherapy. He notes his pain is in his lower pelvis. No trauma. No fevers of 100.4. Pain has been present since Saturday. CBC all BMP, LFTs, bilirubin and lipase unremarkable. UA shows no signs of infection. CT of the abdomen and pelvis shows worsening of the cancer but no perforation or obstruction. Patient was updated regards to his findings. He was given 2 L normal saline. Heart rate [place]. He was given IV morphine. He did feel significant better. Discussed with his oncologist who agrees with following him up as an outpatient. OxyIR was given. PDMP was reviewed. Discussed with Pt concerning signs and symptoms to watch out for. Pt was instructed to follow up with their PCP and discussed with the patient their option to return to the ED at anytime for persistent or worsening symptoms. The appropriate anticipatory guidance and out-patient management, including indications for return to the emergency department, were explained at length to the patient and understood. [place] Drug Monitoring Program Search Results: patient reviewed within database, no issues identified Medication Reconcilliation Current Medication List: was personally reviewed by me Blood Pressure Screening Patient's blood pressure: Normal blood pressure Blood pressure disposition: Did not require urgent referral Consults Time Called: 1140 Consulting Physician: Dr. Huber - Oncology Returned Call: [phone] We discussed the patient's case. He agrees with the treatment plan. Impression Primary Impression: Abdominal pain Scribe Attestation The scribe's documentation has been prepared under my direction and personally reviewed by me in its entirety. I confirm that the note above accurately reflects all work, treatment, procedures, and medical decision making performed by me. Departure Information Dispostion Home / Self-Care Prescriptions Oxycodone Immediate Rel Tab (ROXICODONE IR) 5 Mg Tab 5 MG PO Q4H Y for Severe Pain, #10 TAB Prov: Brian Sarkar, DO 01/03/17 Referrals Stephen Martinez M.D. (PCP) Forms Call Back Authorization, HOME CARE DOCUMENTATION FORM, IMPORTANT VISIT INFORMATION Patient Instructions Abdominal Pain - [facility] Additional Instructions Please follow up with your primary care doctor with in the next 24 hours. Any worsening of your symptoms, please return to the ED immediately. This includes any fevers greater than 100.4, worsening pain, chest pain, shortness breath, persistent nausea, vomiting, unable to eat or drink, or any other concerning signs or symptoms from your standpoint. You were given medications during this visit that will inhibit your ability to drive, operate machinery and work. Please do NOT drive, operate machinery or work for the next 12hrs. You were also given a prescription for a narcotic. While taking this medication you should also not drive, operate machinery and or work. Problem Qualifiers Primary Impression: Abdominal pain Abdominal location: generalized Qualified Codes: R10.84 - Generalized abdominal pain
== END 2017-01-03 12:58 | disposition home or self-care (01) ==
LOC: C.EDB 09:26 → C.EDA 12:58
DX: R10.84 Generalized abdominal pain (principal); C18.7 Malignant neoplasm of sigmoid colon; C79.89 Secondary malignant neoplasm of other specified sites; J45.909 Unspecified asthma, uncomplicated; Z90.49 Acquired absence of other specified parts of digestive tract; Z79.899 Other long term (current) drug therapy

== ENCOUNTER 2017-05-19 00:10 | Inpatient (IN) | payer OTHER ==
[2017-05-19] VITALS (8 sets, daily range): BP systolic 135–176; BP diastolic 77–115; PULSE 121–156; TEMP 36.5–38.5; O2SAT 94–99; Ht 177.8 cm; Wt 67.9 kg
[~2017-05-19] VITALS: Ht 177.8 cm; Wt 67.9 kg
[~2017-05-19 00:10] MED LIST changes: +IBUP600T44 PO; +MRN5 PO; +OXYC1TAB3 PO; +TRAM-10 PO; -VNTHFA/IN INH
[2017-05-19] MEDS ORDERED: SODIUM CHLORIDE 0.9% 1000ML 1,000 ML IV STA ×2 (00:15→01:53)
[2017-05-19] MEDS ORDERED: LORAZEPAM 2 MG/ML 1 ML VIAL IV STA (00:15)
[2017-05-19 01:06] LABS: BASO % 0.1 %; BASO ABS # 0.01 K/uL (0-0.2); EOS % 0.5 %; EOS ABS # 0.06 K/uL (0-0.5); HEMATOCRIT 25.3 % (42-52); HEMOGLOBIN 8.3 g/dL (14.0-18.0); IG# 0.08 K/uL (0.00-0.02); LYMPH % 6.7 %; LYMPH ABS # 0.78 K/uL (1.2-3.4); MEAN CELL VOLUME 69.3 fL (80-100); MEAN CORPUSCULAR HEMOGLOBIN 22.7 pg (25-34); MEAN CORPUSCULAR HGB CONC 32.8 g/dl (32-36); MONO % 10.5 %; MONO ABS # 1.21 K/uL (0.11-0.59); NEUT % 81.5 %; NEUT ABS # 9.43 K/uL (1.4-6.5); PLATELET COUNT 368 K/uL (130-400); RED CELL DISTRIBUTION WIDTH CV 16.1 % (11.5-14.5); RED CELL DISTRIBUTION WIDTH SD 40.3 fL (36.4-46.3); WHITE BLOOD COUNT 11.57 K/uL (4.8-10.8)
[2017-05-19 01:18] LABS: INR 1.3 (0.9-1.1)
[2017-05-19 01:28] LABS: BLOOD UREA NITROGEN 15 mg/dl (7-18); CALCIUM 8.8 mg/dl (8.5-10.1); CARBON DIOXIDE 26 mmol/L (21-32); CREATININE 0.86 mg/dl (0.60-1.40); GLUCOSE 127 mg/dl (70-99); SODIUM 127 mmol/L (136-145)
[2017-05-19 01:38] LABS: CKMB 1.2 ng/ml (0.5-3.6); PHOSPHORUS 2.6 mg/dl (2.5-4.9)
[2017-05-19] MEDS ORDERED: POTASSIUM CHLORIDE 10 MEQ TABCR PO STA (01:53)
[2017-05-19] MEDS ORDERED: OXYC1TAB3 PO (01:55)
[2017-05-19] MEDS ORDERED: METH5TAB2 PO (01:57)
[2017-05-19] MEDS ORDERED: ATV/1 PO (01:59)
[2017-05-19] MEDS ORDERED: POTASSIUM CHLORIDE 10 MEQ / 100ML WTR IV STA (02:41)
[2017-05-19 02:43] LABS: RETIC COUNT % 2.6 % (0.5-2.0)
[2017-05-19 02:53] LABS: OSMOLALITY,URINE 245 mOms/kg (500-800)
[2017-05-19 02:58] LABS: SODIUM RANDOM URINE 81 mEq/L
[2017-05-19] MEDS ORDERED: LORAZEPAM 2 MG/ML 1 ML VIAL ONE (03:11)
[2017-05-19] MEDS ORDERED: LEVETIRACETAM IV 1,000 MG in DEXTROSE 5% 100ML 100 ML IV STA (03:12)
[2017-05-19] MEDS ORDERED: LORAZEPAM 2 MG/ML 1 ML VIAL IV ONE ×2 (03:15→11:30)
[2017-05-19] MEDS ORDERED: OPTIRAY 320 IV PRN (03:15)
[2017-05-19] MEDS ORDERED: ACETAMINOPHEN 325 MG TAB PO PRN (03:15)
[2017-05-19] MEDS ORDERED: LORAZEPAM INJ 1 MG in SYRINGE 0.5 ML IV PRN (03:15)
[2017-05-19] MEDS ORDERED: POLYETHYLENE (MIRALAX) 17 GM PACK PO PRN ×2 (03:15→05:30)
[2017-05-19] MEDS ORDERED: PROCHLORPERAZINE INJ 5 MG in SYRINGE 4 ML IV PRN (03:15)
--- NOTE | 2017-05-19 03:42 | EMERGENCY ROOM VISIT NOTE ---
History First contact with patient: 00:14 Chief Complaint: SEIZURE Stated Complaint: SEIZURE Nursing Triage Summary: prior to arrival patient's family reports seizure like activity at home last five minutes where patient became " rigid" and unresponsive . EMS was called and EMS states in route to hospital patient again had seizure like activity similar to the episode at home last two minutes. patient has hx of colon CA. no known hx of seizures. History of Present Illness The patient is a 36 year old male who presents to the Emergency Room with complaints of seizure. Patient is confused and unable to obtain history. History is obtained from the girlfriend that was present. Girlfriend states that she was with him when he started to slur his words and shake and have a seizure for about a minute or 2. She states that he was extremely confused after the event and she summoned EMS. He has colon cancer with metastases. No known metastases to the brain. No prior history of seizures. No alcohol or drug use. She states that he was fine throughout the day. She denies any trauma or head injury. She states that his last IV chemo was back in December 2016. He follows Dr. Huber. He is unable to currently afford his p.o. chemotherapy. No recent radiation. He has had colon resection already. She denies any known fever, vomiting, diarrhea, drug or alcohol ingestion. Review of Systems Unable to obtain secondary to patient's altered mental status Past Medical/Surgical History Medical Problems: (1) Asthma (2) Colon cancer (3) Hyponatremia Surgical Problems: (1) S/P partial resection of colon Family History Cancer Social History Smoking Status: Never Smoker Alcohol Use: occasionally Drug Use: none Marital Status: in relationship Housing Status: lives alone Occupation Status: employed Current/Historical Medications Scheduled Dronabinol (Marinol), 5 MG PO TID Ibuprofen (Motrin), 600 MG PO DAILY Methadone Hcl (Dolophine), 10 MG PO BID Scheduled PRN Lorazepam (Ativan), 1 MG PO TID PRN for Anxiety Oxycodone Ir (Roxicodone Ir), 5 MG PO Q4H PRN for Severe Pain Tramadol (Ultram), 50 MG PO BID PRN for Pain Physical Exam Vital Signs Date Time Temp Pulse Resp B/P (MAP) Pulse Ox O2 Delivery O2 Flow Rate FiO2 05/19/17 03:23 127 24 172/114 94 Room Air 05/19/17 02:14 122 19 164/119 97 Room Air 05/19/17 00:57 119 18 163/114 97 Room Air 05/19/17 00:43 98 Room Air 05/19/17 00:42 126 05/19/17 00:37 98 Room Air 05/19/17 00:37 36.9 122 20 169/117 98 Room Air 05/19/17 00:37 36.9 122 20 169/117 98 Room Air Physical Exam VITALS: Vitals are noted on the nurse's note and reviewed by myself. Vital signs tachycardic and hypertensive GENERAL: White male unable to follow commands, in no acute distress, nondiaphoretic, well-developed well-nourished. SKIN: The skin was without rashes, erythema, edema, or bruising. There is no tenting of the skin. Capillary reflex less than 2 seconds. HEAD: Normocephalic atraumatic. EARS: External auditory canals clear, tympanic membranes pearly sanches without erythema or effusion bilaterally. EYES: Pupils equal round and reactive to light and accommodation. Conjunctivae without injection, sclerae without icterus. Extraocular movements intact. NOSE: Patent, turbinates without inflammation or discharge. No sinus tenderness. MOUTH: Mucous membranes moist. Abrasion to lower lip most likely from the seizure, pharynx without erythema or exudate. Uvula midline. Airway patent. Tongue does not deviate. NECK: Supple without nuchal rigidity. No lymphadenopathy. No thyromegaly. Cervical spine is nontender. No JVD. HEART: Tachycardic rate and rhythm LUNGS: Clear to auscultation bilaterally without wheezes, rales or rhonchi. No retractions or accessory muscle use. ABDOMEN: Positive bowel sounds x 4. Normal tympanic percussion. Soft, nontender, without masses or organomegaly. Koch sign negative. No guarding or rebound tenderness. No CVA tenderness MUSCULOSKELETAL: No muscle atrophy, erythema, or edema noted. 5 out of 5 strength throughout. NEURO: Patient was alert but not oriented to person place and time. No focal deficits Medical Decision & Procedures Laboratory Results 05/19/17 00:49 Red Blood Count 3.65, Mean Corpuscular Volume 69.3, Mean Corpuscular Hemoglobin 22.7, Mean Corpuscular Hemoglobin Concent 32.8, Mean Platelet Volume 8.0, Neutrophils (%) (Auto) 81.5, Lymphocytes (%) (Auto) 6.7, Monocytes (%) (Auto) 10.5, Eosinophils (%) (Auto) 0.5, Basophils (%) (Auto) 0.1, Neutrophils # (Auto ) 9.43, Lymphocytes # (Auto) 0.78, Monocytes # (Auto) 1.21, Eosinophils # (Auto ) 0.06, Basophils # (Auto) 0.01 05/19/17 00:49 05/19/17 02:29 Test 05/19/17 00:49 05/19/17 02:20 05/19/17 02:29 White Blood Count 11.57 K/uL (4.8-10.8) Red Blood Count 3.65 M/uL (4.7-6.1) Hemoglobin 8.3 g/dL (14.0-18.0) Hematocrit 25.3 % (42-52) Mean Corpuscular Volume 69.3 fL (80-100) Mean Corpuscular Hemoglobin 22.7 pg (25-34) Mean Corpuscular Hemoglobin Concent 32.8 g/dl (32-36) Platelet Count 368 K/uL (130-400) Mean Platelet Volume 8.0 fL (7.4-10.4) Neutrophils (%) (Auto) 81.5 % Lymphocytes (%) (Auto) 6.7 % Monocytes (%) (Auto) 10.5 % Eosinophils (%) (Auto) 0.5 % Basophils (%) (Auto) 0.1 % Neutrophils # (Auto) 9.43 K/uL (1.4-6.5) Lymphocytes # (Auto) 0.78 K/uL (1.2-3.4) Monocytes # (Auto) 1.21 K/uL (0.11-0.59) Eosinophils # (Auto) 0.06 K/uL (0-0.5) Basophils # (Auto) 0.01 K/uL (0-0.2) RDW Standard Deviation 40.3 fL (36.4-46.3) RDW Coefficient of Variation 16.1 % (11.5-14.5) Immature Granulocyte % (Auto) 0.7 % Immature Granulocyte # (Auto) 0.08 K/uL (0.00-0.02) Hypochromasia PRESENT Microcytosis PRESENT Prothrombin Time 13.4 SECONDS (9.0-12.0) Prothromb Time International Ratio 1.3 (0.9-1.1) Activated Partial Thromboplast Time 25.0 SECONDS (21.0-31.0) Partial Thromboplastin Ratio 1.0 Anion Gap 15.0 mmol/L (3-11) Est Creatinine Clear Calc Drug Dose 109.9 ml/min Estimated GFR () 131.1 Estimated GFR (Non- 113.1 BUN/Creatinine Ratio 17.1 (10-20) Calcium Level 8.8 mg/dl (8.5-10.1) Phosphorus Level 2.6 mg/dl (2.5-4.9) Magnesium Level 2.2 mg/dl (1.8-2.4) Total Creatine Kinase 102 U/L (39-308) Creatine Kinase MB 1.2 ng/ml (0.5-3.6) Creatine Kinase MB Ratio 1.2 (0-3.0) Troponin I < 0.015 ng/ml (0-0.045) Thyroid Stimulating Hormone (TSH) 3.190 uIu/ml (0.300-4.500) Ethyl Alcohol mg/dL < 3.0 mg/dl (0-3) Urine Color YELLOW Urine Appearance CLEAR (CLEAR) Urine pH 7.5 (4.5-7.5) Urine Specific [place] 1.006 (1.000-1.030) Urine Protein NEG (NEG) Urine Glucose (UA) NEG (NEG) Urine Ketones 1+ (NEG) Urine Occult Blood TRACE (NEG) Urine Nitrite NEG (NEG) Urine Bilirubin NEG (NEG) Urine Urobilinogen NEG (NEG) Urine Leukocyte Esterase NEG (NEG) Urine WBC (Auto) 0 /hpf (0-5) Urine RBC (Auto) 0-4 /hpf (0-4) Urine Hyaline Casts (Auto) 1-5 /lpf (0-5) Urine Epithelial Cells (Auto) 0-5 /lpf (0-5) Urine Bacteria (Auto) NEG (NEG) Urine Osmolality 245 mOms/kg (500-800) Urine Random Sodium 81 mEq/L Urine Opiates Screen NEG (NEG) Urine Methadone, Qualitative POS (NEG) Urine Barbiturates NEG (NEG) Urine Phencyclidine (PCP) Level NEG (NEG) Ur Amphetamine/Methamphetamine NEG (NEG) MDMA (Ecstasy) Screen NEG (NEG) Urine Benzodiazepines Screen NEG (NEG) Urine Cocaine Metabolite NEG (NEG) Urine Marijuana (THC) POS (NEG) Absolute Reticulocyte Count 0.10 10^6/uL (0.02-0.10) Percent Reticulocyte Count 2.6 % (0.5-2.0) Osmolality 267 mOsm/kg (280-300) Lactic Acid Level 1.4 mmol/L (0.4-2.0) Iron Level 16 mcg/dl (35-175) Total Iron Binding Capacity 175 mcg/dl (250-450) Transferrin 139 mg/dl (200-360) Transferrin % Saturation 8 % (20-50) Ferritin 289.8 ng/ml (8.0-388.0) Vitamin B12 Level 962 pg/mL (211-911) Folate 2.71 ng/mL (>5.38) Medications Administered Medications (Trade) Dose Ordered Sig/Luis Manuel Route Start Time Stop Time Status Last Admin Dose Admin Sodium Chloride 1,000 ml @ 999 mls/hr Q1H1M STAT IV 05/19/17 00:15 05/19/17 01:15 DC 05/19/17 00:59 999 MLS/HR Potassium Chloride (Kcl 10 Meq / Wtr) 10 meq NOW STAT IV 05/19/17 02:41 05/19/17 02:43 DC 05/19/17 03:09 10 MEQ Levetiracetam 1000 mg/Dextrose 110 ml @ 440 mls/hr ONE STAT IV 05/19/17 03:12 05/19/17 03:26 DC 05/19/17 03:20 440 MLS/HR Lorazepam (Ativan Inj) 2 mg STK-MED ONCE .ROUTE 05/19/17 03:11 05/19/17 03:12 DC 05/19/17 03:11 2 MG ED Course Prior records/ancillary studies reviewed. Patient placed in seizure precautions immediately upon arrival. Nursing notes reviewed. Additional history obtained from EMS The patient's history was concerning for a possible seizure. Differential diagnosis: Etiologies such as brain metastases, infection, hypoglycemia, electrolyte abnormalities, cardiac sources, intracerebral event, trauma, toxicologic, neurologic, as well as others were entertained. Physical examination: As above. No signs of trauma. ER treatment provided: IV fluids, IV potassium On reassessment the patient felt better. Diagnostics interpretation by me: ECG: Normal sinus, normal intervals, no acute ST-T wave changes, rate of 123. Impression sinus tachycardia interpreted by myself The labs revealed increasing anemia, hyponatremia, low chloride Imaging studies: Head CT negative for intracranial bleed or fracture per radiology Consultation: A consultation was placed with the hospitalist, Dr. Gomez. He will evaluate the patient for further evaluation and treatment. Case was reviewed with him. The patient does not have a history of seizures. Patient was given IV fluids. Patient had a positive drug screen. His electrolytes were low. Potassium was given intravenously. Patient was reassessed multiple times and still was confused appearing. He was unable to answer any questions. He was able to follow some commands. He had no localized deficits on exam. He will be evaluated by medicine for admission. 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 The family informed about the findings as listed above. All questions were answered and pleased with the treatment. Case reviewed with my attending The chart was completed utilizing [employer] Speech voice recognition software. Grammatical errors, random word insertions, pronoun errors, and incomplete sentences are an occassional consequence of this system due to software limitations, ambient noise, and hardware issues. Any formal questions or concerns about the content, text, or information contained within the body of this dictation should be directly addressed to the physician psychiatric technician assistant for clarification. Medical Decision As above Blood Pressure Screening Patient's blood pressure: Elevated blood pressure Blood pressure disposition: Elevated BP felt to be situational Impression Primary Impression: Seizure Additional Impressions: Hyponatremia Hypochloremia Anemia Departure Information Dispostion Being Evaluated By Hospitalist Condition FAIR Referrals Stephen Martinez M.D. (PCP) Patient Instructions My [facility] Problem Qualifiers
[2017-05-19] MEDS ORDERED: METOPROLOL TARTRATE 1 MG/ML VIAL IV STA ×2 (04:42→06:33)
[2017-05-19] MEDS ORDERED: HYDROmorphone INJ 0.5 MG/0.5 ML SYR IV ONE (04:55)
[2017-05-19] MEDS ORDERED: NSS + 20MEQ KCL 1000ML 1,000 ML IV SCH (05:00)
[2017-05-19] MEDS ORDERED: LORAZEPAM 2 MG/ML 1 ML VIAL IV PRN (05:00)
[2017-05-19] MEDS ORDERED: NSS + 20MEQ KCL 1000ML 1,000 ML IV ONE (05:00)
[2017-05-19] MEDS: POTASSIUM CHLR 10 MEQ / WTR 10 MEQ in PREMIXED WATER 100 ML IV SCH ×3 (05:16→07:28)
[2017-05-19] MEDS ORDERED: OLANZAPINE 10 MG/2.1 ML SDV IM STA (06:33)
[2017-05-19] MEDS: LORAZEPAM 2 MG/ML 1 ML VIAL IV PRN ×3 (07:34→23:06)
--- NOTE | 2017-05-19 08:02 | DIAGNOSTIC IMAGING REPORT ---
CT SCAN OF THE ABDOMEN AND PELVIS WITH IV CONTRAST CLINICAL HISTORY: Generalized abdominal pain. Nausea and vomiting. Colon cancer. COMPARISON STUDY: Prior abdominal CT scans, most recently dated 01/03/2017. TECHNIQUE: Following the IV administration of 94 cc of Optiray 320, CT scan of the abdomen and pelvis is performed from the lung bases to the proximal femora. Images are reviewed in the axial, sagittal, and coronal planes. IV contrast was administered without complication. The examination is degraded by streak artifact from the patient's arms which could not be elevated above the chest as well as by motion. A dose lowering protocol was utilized adhering to the principles of ALARA. FINDINGS: Lung bases: The heart is normal in size and without pericardial effusion. The lung bases are clear. Liver: The contrast-enhanced liver is normal in size, contour, and attenuation. There is central intrahepatic biliary ductal dilatation. The hepatic veins and portal veins are patent. Numerous small lymph nodes are present along the surface of the liver. A low-attenuation lesion in the inferior right lobe of liver seen on image #95 and measures 2.5 cm. Gallbladder: The gallbladder is grossly unremarkable. Spleen: The spleen is mildly enlarged, measuring 13.7 cm in length. Pancreas: Unremarkable. Adrenal glands: Unremarkable. Kidneys: The contrast enhanced kidneys are normal in size. There is mild right-sided hydronephrosis. There is heterogeneously diminished perfusion of the right kidney as compared to the left. Abdominal vasculature: The abdominal aorta is normal in course and caliber. Bowel: No bowel obstruction is seen. There is mild colonic fecal retention. The appendix is well-visualized and normal. Peritoneum: There is nonspecific gas and fluid present in the gallbladder fossa between the gallbladder and the liver. This is best seen on image #88. Findings of diffuse peritoneal carcinomatosis has significantly progressed as compared to 01/03/2017. A large implant is now seen anterior to the left lobe of liver on image #77. This measures up to 4.1 cm. A lesion in the ventral abdominal wall on image #178 measures 4.5 cm (previously measured 1.7 cm). A large low-attenuation lesion in the left lower quadrant on image #252 measures up to 5.8 cm. A large heterogeneous is centered in the right abdominal wall on image #240. Lymphadenopathy: Retroperitoneal lymphadenopathy and pelvic sidewall lymphadenopathy has significantly progressed. Pelvic viscera: The bladder, prostate, and seminal vesicles are normal as imaged. Skeletal structures: No lytic or blastic lesions are seen. There is a left-sided pars defect at L5. IMPRESSION: 1. Significantly streak and motion compromised examination. 2. Overall marked progression of peritoneal metastatic disease as compared to 01/03/2017. There is now evidence of hepatic metastatic disease, as well as retroperitoneal and pelvic sidewall adenopathy. 3. There is diffuse hypoperfusion of the right kidney with mild right hydronephrosis. This is likely related to an obstructing lesion along the distal right ureter although this is difficult to assess. 4. There is gas and fluid identified in the gallbladder fossa between the gallbladder and the liver. This is of indeterminant significance and may resent a necrotic implant or less likely an intervening loop of bowel. Abscess would be impossible to exclude. Clinical correlation will be essential. Consider ultrasound for further assessment if there is strong clinical concern for abscess. 5. Additional findings as above. Electronically signed by: Rayo Lopez M.D. 05/19/2017 8:00 AM Dictated Date/Time: 05/19/2017 7:48 AM
--- NOTE | 2017-05-19 08:36 | DIAGNOSTIC IMAGING REPORT ---
CT SCAN OF THE BRAIN WITHOUT IV CONTRAST CLINICAL HISTORY: Seizure. History of colon cancer. COMPARISON STUDY: No priors. TECHNIQUE: Unenhanced axial CT scan of the brain is performed from the vertex to the skull base. A dose lowering technique was utilized adhering to the principles of ALARA. CT DOSE: 614.27 mGy.cm FINDINGS: Brain parenchyma: The brain parenchyma is normal in appearance. There is no hemorrhage, mass effect, or evidence of acute territorial ischemia by CT criteria. Rodriguez-white matter is preserved. No extra-axial fluid collection is seen. Ventricles, sulci, cisterns: Normal in configuration. Intracranial vasculature: The visualized intracranial vasculature at the skull base is normal in appearance. Calvarium: Unremarkable. Sinuses and mastoids: The visualized paranasal sinuses are clear. The mastoid air cells are well pneumatized. Orbits: The bony orbits are grossly intact. IMPRESSION: There is no hemorrhage, mass effect, or evidence of acute territorial ischemia by CT criteria. Electronically signed by: Rayo Lopez M.D. 05/19/2017 8:35 AM Dictated Date/Time: 05/19/2017 8:33 AM
[2017-05-19] MEDS: METHADONE HCL 10 MG TAB PO SCH ×2 (09:00→20:32)
[2017-05-19] MEDS ORDERED: DOCUSATE SODIUM/SENNA 50/8.6MG TAB PO SCH (09:00)
[2017-05-19] MEDS: DOCUSATE SODIUM/SENNA 50/8.6MG TAB PO SCH ×2 (09:00→20:32)
[2017-05-19] MEDS ORDERED: POLYETHYLENE (MIRALAX) 17 GM PACK PO ONE (09:00)
--- NOTE | 2017-05-19 10:05 | DIAGNOSTIC IMAGING REPORT ---
SINGLE VIEW CHEST CLINICAL HISTORY: Change in mental status. Seizure. FINDINGS: An AP, portable, upright chest radiograph is compared to study dated 04/10/2016 and correlated with chest CT dated 12/20/2016. The examination is degraded by portable technique and patient rotation. A right subclavian central venous infusion port is in place appear The cardiomediastinal silhouette is unremarkable. The lungs and pleural spaces are clear. No pneumothorax is seen. The bony thorax is grossly intact. IMPRESSION: No active disease in the chest. Electronically signed by: Rayo Lopez M.D. 05/19/2017 10:04 AM Dictated Date/Time: 05/19/2017 10:03 AM
--- NOTE | 2017-05-19 10:52 | Progress Note ---
Medicine Progress Note Date & Time of Visit: May 19, 2017 at 10:52. Objective Last 8 Hrs Date Time Temp Pulse Resp B/P (MAP) Pulse Ox O2 Delivery O2 Flow Rate FiO2 05/19/17 08:00 Room Air 05/19/17 06:49 134 173/115 05/19/17 06:30 134 173/115 (134) 05/19/17 05:14 146 161/102 05/19/17 04:22 36.5 136 20 161/102 97 Room Air 05/19/17 03:36 122 24 147/113 95 Room Air 05/19/17 03:23 127 24 172/114 94 Room Air Physical Exam: General-[] Eyes-[] ENT-[] Neck-[] Lungs-[] Heart-[] Abdomen-[] Extremities-[] Neuro-[] Laboratory Results: Last 24 Hours Test 05/19/17 00:49 05/19/17 02:20 05/19/17 02:29 White Blood Count 11.57 K/uL Red Blood Count 3.65 M/uL Hemoglobin 8.3 g/dL Hematocrit 25.3 % Mean Corpuscular Volume 69.3 fL Mean Corpuscular Hemoglobin 22.7 pg Mean Corpuscular Hemoglobin Concent 32.8 g/dl Platelet Count 368 K/uL Mean Platelet Volume 8.0 fL Neutrophils (%) (Auto) 81.5 % Lymphocytes (%) (Auto) 6.7 % Monocytes (%) (Auto) 10.5 % Eosinophils (%) (Auto) 0.5 % Basophils (%) (Auto) 0.1 % Neutrophils # (Auto) 9.43 K/uL Lymphocytes # (Auto) 0.78 K/uL Monocytes # (Auto) 1.21 K/uL Eosinophils # (Auto) 0.06 K/uL Basophils # (Auto) 0.01 K/uL RDW Standard Deviation 40.3 fL RDW Coefficient of Variation 16.1 % Immature Granulocyte % (Auto) 0.7 % Immature Granulocyte # (Auto) 0.08 K/uL Hypochromasia PRESENT Microcytosis PRESENT Prothrombin Time 13.4 SECONDS Prothromb Time International Ratio 1.3 Activated Partial Thromboplast Time 25.0 SECONDS Partial Thromboplastin Ratio 1.0 Sodium Level 127 mmol/L 128 mmol/L Potassium Level 3.0 mmol/L Chloride Level 86 mmol/L Carbon Dioxide Level 26 mmol/L Anion Gap 15.0 mmol/L Blood Urea Nitrogen 15 mg/dl Creatinine 0.86 mg/dl Est Creatinine Clear Calc Drug Dose 109.9 ml/min Estimated GFR () 131.1 Estimated GFR (Non- 113.1 BUN/Creatinine Ratio 17.1 Random Glucose 127 mg/dl Calcium Level 8.8 mg/dl Phosphorus Level 2.6 mg/dl Magnesium Level 2.2 mg/dl Total Creatine Kinase 102 U/L Creatine Kinase MB 1.2 ng/ml Creatine Kinase MB Ratio 1.2 Troponin I < 0.015 ng/ml Thyroid Stimulating Hormone (TSH) 3.190 uIu/ml Ethyl Alcohol mg/dL < 3.0 mg/dl Urine Color YELLOW Urine Appearance CLEAR Urine pH 7.5 Urine Specific [place] 1.006 Urine Protein NEG Urine Glucose (UA) NEG Urine Ketones 1+ Urine Occult Blood TRACE Urine Nitrite NEG Urine Bilirubin NEG Urine Urobilinogen NEG Urine Leukocyte Esterase NEG Urine WBC (Auto) 0 /hpf Urine RBC (Auto) 0-4 /hpf Urine Hyaline Casts (Auto) 1-5 /lpf Urine Epithelial Cells (Auto) 0-5 /lpf Urine Bacteria (Auto) NEG Urine Osmolality 245 mOms/kg Urine Random Sodium 81 mEq/L Urine Opiates Screen NEG Urine Methadone, Qualitative POS Urine Barbiturates NEG Urine Phencyclidine (PCP) Level NEG Ur Amphetamine/Methamphetamine NEG MDMA (Ecstasy) Screen NEG Urine Benzodiazepines Screen NEG Urine Cocaine Metabolite NEG Urine Marijuana (THC) POS Absolute Reticulocyte Count 0.10 10^6/uL Percent Reticulocyte Count 2.6 % Osmolality 267 mOsm/kg Lactic Acid Level 1.4 mmol/L Iron Level 16 mcg/dl Total Iron Binding Capacity 175 mcg/dl Transferrin 139 mg/dl Transferrin % Saturation 8 % Ferritin 289.8 ng/ml Vitamin B12 Level 962 pg/mL Folate 2.71 ng/mL Procalcitonin 0.20 ng/ml Date/Time Source Procedure Growth Status 05/19/17 02:33 Blood Blood Culture Pending Received 05/19/17 02:29 Blood Blood Culture Pending Received Assessment & Plan Current Inpatient Medications: Current Inpatient Medications Medications (Trade) Dose Ordered Sig/Luis Manuel Route Start Time Stop Time Status Last Admin Dose Admin Levetiracetam (Keppra Tab) 500 mg BID PO 05/19/17 21:00 06/18/17 20:59 Lorazepam 1 mg/ Syringe 1 ml @ 0.5 mls/min UD PRN IV 05/19/17 03:15 06/18/17 03:14 Ioversol (Optiray 320) 125 ml UD PRN IV 05/19/17 03:15 05/23/17 03:14 Acetaminophen (Tylenol Tab) 650 mg Q4H PRN PO 05/19/17 03:15 06/18/17 03:14 Methadone HCl (Dolophine Tab) 10 mg BID PO 05/19/17 09:00 06/02/17 08:59 Oxycodone HCl (Roxicodone Immediate Rel Tab) 5 mg Q4H PRN PO 05/19/17 03:15 06/02/17 03:14 Prochlorperazine Edisylate 5 mg/ Syringe 5 ml @ 5 mls/min Q6H PRN IV 05/19/17 03:15 06/18/17 03:14 Senna/Docusate Sodium (Senokot S Tab) 1 tab BID PO 05/19/17 09:00 06/18/17 08:59 Hydromorphone HCl (Dilaudid Inj) 0.5 mg Q4H PRN IV 05/19/17 03:15 06/02/17 03:14 Ketorolac Tromethamine (Toradol Inj) 15 mg Q6H PRN IV. 05/19/17 03:15 05/24/17 03:14 Lorazepam (Ativan Inj) 1 mg Q5M PRN IV 05/19/17 04:45 06/18/17 04:44 05/19/17 07:34 1 MG Potassium Chloride/Sodium Chloride 1,000 ml @ 100 mls/hr Q10H ONCE IV 05/19/17 05:00 05/19/17 14:59 05/19/17 05:13 100 MLS/HR Senna/Docusate Sodium (Senokot S Tab) 1 tab BID PO 05/19/17 09:00 06/18/17 08:59 Polyethylene (Miralax Powder Packet) 17 gm DAILY PRN PO 05/19/17 05:30 06/18/17 05:29 Lorazepam (Ativan Inj) 1 mg Q2H PRN IV 05/19/17 06:45 06/18/17 04:59 3/4/18 10:15 1 MG
[2017-05-19] MEDS ORDERED: GADAVIST IV PRN (11:30)
--- NOTE | 2017-05-19 11:32 | HISTORY & PHYSICAL EXAMINATION ---
DATE OF ADMISSION: 05/19/2017 PRIMARY CARE PHYSICIAN: Dr. Martinez. CHIEF COMPLAINT: Possible seizures as per family. HISTORY OF PRESENT ILLNESS: History obtained from patient, family and records. Patient not a reliable historian secondary to disorientation. Medical history significant for metastatic colon cancer status post surgery in 2014 status post chemotherapy, OCD as per records, chronic pain on narcotics, chronic anemia, (baseline hemoglobin of 10 in April 2017), asthma as per records. chronic hyponatremia. Patient found to have colon cancer in 2014. Subsequently underwent surgery and chemotherapy. [place] [facility] oncologist last April 2017, Patient had delay of second course of chemotherapy due to insurance issues as per note. Patient was continuing to have significant abdominal pain. Increasing CEA levels. Patient and girlfriend told that metastatic cancer was progressing. Referral to [facility] for experimental trial however, patient not able to travel as per family. In the last week, the patient more disoriented as per girlfriend, achy headache symptoms, increasing achy abdominal pain, nausea, vomiting. Patient could not keep anything down. Patient constipated over the last 2 days as per family. Last night, patient noted by girlfriend to have grand mal seizures for about 5 minutes. No tongue biting. Although patient's lip was noted to be "fat" as per girlfriend. No incontinence noted. Patient was brought to Emergency Room. Subsequently GTC seizure witnessed in the ER cubicle by staff and family. MEDICAL HISTORY: As above. SURGERIES: He had bowel resection, a port placement. HOME MEDICATIONS: Include Marinol, Motrin, Ativan, methadone, Roxicodone, Ultram. ALLERGIES: No known drug allergies. FAMILY HISTORY: Colon cancer. PERSONAL AND SOCIAL HISTORY: Lives with girlfriend. REVIEW OF SYSTEMS: Could not be obtained. PHYSICAL EXAMINATION: VITAL SIGNS: Blood pressure was noted to be 169/117, pulse rate 102, RR 20, temperature 36.9, sats 98 on room air. GENERAL: Noted to be disoriented, no respiratory distress. SKIN: Pallor, warm. HEENT: Pale palpebral conjunctivae. No ptosis. Dry mucosa. NECK: Supple, nontender. CHEST: Decreased effort. No tenderness HEART: Tachycardic, palpable LE pulses. ABDOMEN: Tender central abdomen, fullness. EXTREMITIES: No edema. No gross deformities. No tenderness. NEUROLOGIC: Disoriented, mid dilated pupils, no facial symmetry. Gait and stance not assessed. LABORATORY STUDIES: Hemoglobin is 8.3, hematocrit 25.2, white cell count 11, platelets 368. Sodium noted to be 128, potassium 3.3, chloride 86, CO2 26, creatinine 1.3, glucose was noted to be 127. CEA was 19.[address] head initial read no hemorrhage or mass effect. CT abdomen and pelvis initial read : limited study due to photon artifact from right extremities. Multiple nodules of the abdomen and pelvis concerning for metastatic disease carcinomatosis, multiple liver lesions noted on liver lesions noted, decreased enhancement for right kidney Chest x-ray, as per my interpretation, atelectasis, borderline cardiac enlargement EKG, as per my interpretation, rate 115, sinus tachycardia, artifact, no ischemia. UA, trace ketones, trace occult blood. ASSESSMENT: 1. New onset seizures possible intracranial mets with headache symptoms history of metastatic refractory colorectal cancer status post surgery, chemotherapy. Home Tramadol possibly contributory to decreased seizure threshold. 2. abdominal pain, nausea and vomiting Multifactorial : narcotic-induced constipation progression of abdominal disease 3. 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 4. Hypokalemia secondary to emesis 5. progressive anemia decreasing blood counts over the last few months likely secondary to chemotherapy PLAN: PCU. Keppra load. Ativan p.r.n., seizure precautions. EEG, MRI brain for seizure workup. Neurology consult RE new onset seizures. Stop Tramadol. Hold parameters for home narcotics for sedation and confusion. Bowel regimen. Hyponatremia workup Careful correction of serum sodium with NSS. May need Nephrology opinion regarding hyponatremia if problems encountered. Replace K Anemia workup. Further management pending workup results. DVT prophylaxis, SCDs, possible intracranial mass. DNR as per patient's previous wishes as per mother, Ms. Salome Hirsch, She requests updates from providers at [phone]. MTDD
--- NOTE | 2017-05-19 11:47 | DIAGNOSTIC IMAGING REPORT ---
ADDENDUM ADDENDUM: In addition to the above findings, PRES with also be a differential consideration in the proper clinical setting. Clinical correlation will be required. Electronically signed by: Rayo Lopez M.D. 05/19/2017 10:38 PM Dictated Date/Time: 05/19/2017 10:37 PM ORIGINAL REPORT MRI OF THE BRAIN COMBO CLINICAL HISTORY: New onset seizure. History of metastatic colon cancer. COMPARISON STUDY: CT of the brain performed 05/19/2017. TECHNIQUE: MRI of the brain was performed utilizing various T1 and T2-weighted sequences in the axial, sagittal, and coronal planes. Contrast-enhanced sequences were acquired following the administration of 6 cc of Gadavist. The examination is performed using the seizure protocol. The examination is modestly compromised by motion artifact. FINDINGS: Brain parenchyma: There are extensive foci of FLAIR signal abnormality seen throughout the brain parenchyma bilaterally. This is greatest involving the sanches matter, and is most prominent within the occipital lobes, the posterior parietal lobes, and the temporal lobes. This is also seen in the posterior left frontal lobe. There is leptomeningeal enhancement and thickening identified along the sulci of the right temporal lobe and the right occipital lobe (coronal postcontrast images #14, #17, #20). Faint leptomeningeal enhancement is also suggested involving the left temporal sulci (coronal image #17). The foci of FLAIR malleolus associated with faint restricted diffusion. This is not typical for acute ischemia. There is no midline shift or evidence of parenchymal hemorrhage. There are additional foci of signal abnormality also identified within the left thalamus and the left periventricular white matter. There is no associated abnormal enhancement. No enhancing parenchymal lesion is identified. No extra-axial fluid collection is seen. The cerebellar tonsils are normal in configuration. Ventricles, sulci, and cisterns: Normal in configuration. Pituitary and sella: Unremarkable. Intracranial vasculature: Normal flow voids are maintained at the skull base. Orbits: The bony orbits are grossly intact. Orbital contents are normal in appearance. Sinuses and mastoids: Clear. Calvarium: Unremarkable. Cervical cord: Partially visualized cervical spinal cord is normal in morphology and signal intensity. IMPRESSION: 1. There are large and extensive foci of FLAIR signal abnormality seen involving predominantly the subcortical white matter, and greatest involving the temporal, parietal, and occipital lobes. 2. There is associated leptomeningeal thickening and enhancement seen within the right temporal and occipital lobes. Faint left meningeal enhancement is also seen in the left temporal lobe region. 3. 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 Infectious meningitis could also have this appearance. Less likely, a viral encephalitis is within the differential. 4. Foci of signal abnormality are also seen within the left thalamus and the left periventricular white matter. There is no associated abnormal enhancement. No enhancing parenchymal lesion is identified. 5. There is no hemorrhage, midline shift, or restricted diffusion typical for acute ischemia. Findings were discussed with Dr. Patricia in neurology at the time of interpretation. Electronically signed by: Rayo Lopez M.D. 05/19/2017 11:46 AM Dictated Date/Time: 05/19/2017 11:27 AM
[2017-05-19 12:40] LABS: HEMATOCRIT 25.9 % (42-52); HEMOGLOBIN 8.4 g/dL (14.0-18.0)
[2017-05-19] MEDS ORDERED: VANCOMYCIN INJ 1,000 MG in SODIUM CHLORIDE 0.9% 250ML 250 ML IV ONE (13:08)
[2017-05-19] MEDS ORDERED: VANCOMYCIN CONSULT ACTIVE PRN ×2 (13:15)
[2017-05-19 13:18] LABS: CALCIUM 8.7 mg/dl (8.5-10.1); CREATININE 0.89 mg/dl (0.60-1.40); POTASSIUM 3.5 mmol/L (3.5-5.1)
--- NOTE | 2017-05-19 13:23 | NEUROLOGY CONSULTATION ---
DATE OF CONSULTATION: 05/19/2017 REASON FOR CONSULTATION: Seizure. HISTORY OF PRESENT ILLNESS: The patient is a 36-year-old with known widely locally metastatic colon cancer diagnosed initially in 2014. He had been losing a significant amount of weight and had decreased p.o. intake over the last 1 week. His girlfriend witnessed him to have a stiffening up for a minute or two; thereafter, he was confused and had word-finding difficulty, kept repeating the same nonsensical word. He was well throughout the day, had not had any trauma or head injury preceding headache. His last chemotherapy was in on December 2016, he follows with Dr. Huber. He is on chronic benzodiazepine narcotics, methadone; none of which have been changed in dose. He has not run out of benzodiazepines. He takes tramadol p.r.n. No recent radiation. No prior history of seizure. No alcohol or drug withdrawal. The patient was said to have a brief seizure in the ambulance, lasting 30 seconds and another seizure in the ER, his family indicates there was head deviation with that, although they are unsure which direction. PAST MEDICAL HISTORY: Asthma, colon cancer, recent hyponatremia, status post resection, the colon. FAMILY HISTORY: His father's family has a history of multiple cancer types. His mother has depression. MEDICATIONS: Marinol 5 mg t.i.d., ibuprofen, methadone 10 mg b.i.d., lorazepam 1 mg t.i.d., oxycodone as needed, tramadol. CURRENT MEDICATIONS: He has received 1000 of Keppra in the Emergency Room. He is on Keppra 500 b.i.d., lorazepam, methadone, senna, oxycodone, prochlorperazine, Dilaudid, and Toradol. DIAGNOSTIC Data: His electrocardiogram on admission, - poor quality, sinus tachycardia, septal infarct, age indeterminate. LABORATORY DATA: White count 11.5, H&H 8.3/25.3, platelet count 363. PT 13.4, INR 1.3, PTT 25. Chemistry profile on admission - serum sodium 127, potassium 3, BUN and creatinine 15/0.6, calcium 8.8, phosphorus 2.6, magnesium 2.2. CK normal. TSH 3.9. Tox screen positive for methadone and marijuana. Interestingly, the drug screen is negative for benzodiazepines. His CT of the head noncontrast is unremarkable. PHYSICAL EXAMINATION: VITAL SIGNS: Temperature 36.5, pulse 134, blood pressure 173/115 earlier this morning. GENERAL: The patient is sleepy, minimally arousable, following no commands, mildly restless, picking at things more so with left hand than right. HEENT: He has no fixed gaze preference, no seizure activity is noted. His head is normocephalic, atraumatic. He is thin, cachectic. ABDOMEN: Firm. NEUROLOGIC: His pupils are equal and reactive, could not reliably visualize the optic nerves. There may be a flattening of the left nasolabial fold. He moves the right arm and right leg less than left. There is mildly decreased tone in those extremities. Toes are mute. Cerebellar sensory not testable. DATA: His MRI which is not yet officially read shows leptomeningeal enhancement with some parenchymal involvement. There is no evidence on this study which was not a dedicated venous study of venous sinus thrombosis. This is suggestive of leptomeningeal disease. 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 PLAN: Lumbar puncture, likely this will be abnormal and he may empirically need to be covered for infectious eitologies. while we await the pathology, empirically be covered for meningitis given his relative immune suppressed state. I would recommend consulting oncology, infectious disease if the lumbar puncture indeed is abnormal. EEG to be ordered. I would continue his current medications. If he is not alerting, would consider a more urgent EEG. [place]
--- NOTE | 2017-05-19 13:56 | OPERATIVE REPORT ---
DATE OF OPERATION: 05/19/2017 LUMBAR PUNCTURE PROCEDURE NOTE DESCRIPTION OF PROCEDURE: After informed consent, the patient was prepped and draped in a sterile fashion. 1% lidocaine was given at the L4 interspace. I had difficulty cannulating the interspace when to space higher also was not able to cannulate the interspace. The procedure was terminated after multiple tries. The patient tolerated the procedure well. The patient should lie flat for 6 hours. Anesthesia was consulted to do a bedside lumbar puncture. They will be down when they are able. We will in the interim empirically cover him for infectious etiologies of meningitis. I discussed with Dr. Cabrales; he will contact hematology/oncology. I attest to the content of the Intraoperative Record and any orders documented therein. Any exceptions are noted below. MTDD
[2017-05-19 14:03] LABS: CSF TOTAL PROTEIN 31.5 mg/dl (15.0-45.0)
[2017-05-19] MEDS: CEFTRIAXONE SOD INJ 2,000 MG in DEXTROSE 5% 50ML 50 ML IV SCH (14:31)
[2017-05-19] MEDS: ACYCLOVIR SOD INJ 500 MG in DEXTROSE 5% 100ML 100 ML IV SCH ×2 (14:31→22:16)
[2017-05-19] MEDS: HYDROmorphone INJ 0.5 MG/0.5 ML SYR IV PRN ×2 (14:35→21:41)
--- NOTE | 2017-05-19 14:57 | Pharmacy Progress Note ---
Pharmacy Antibiotic Consult Date of Service: May 19, 2017. Pharmacy Dosing Scope Pharmacy is consulted to initiate vancomycin IV dosing therapy, order appropriate labs and adjust drug dose/frequency. Subjective The patient is a 36 year old male admitted on May 19, 2017 at 02:28. Objective Height (Feet): 5 Height (Inches): 10.00 Weight (Kilograms): 63.500 Lab Results (24hrs): Test 05/19/17 00:49 05/19/17 02:20 05/19/17 02:29 05/19/17 12:26 White Blood Count 11.57 K/uL (4.8-10.8) Red Blood Count 3.65 M/uL (4.7-6.1) Hemoglobin 8.3 g/dL (14.0-18.0) Hematocrit 25.3 % (42-52) Mean Corpuscular Volume 69.3 fL (80-100) Mean Corpuscular Hemoglobin 22.7 pg (25-34) Mean Corpuscular Hemoglobin Concent 32.8 g/dl (32-36) Platelet Count 368 K/uL (130-400) Mean Platelet Volume 8.0 fL (7.4-10.4) Neutrophils (%) (Auto) 81.5 % Lymphocytes (%) (Auto) 6.7 % Monocytes (%) (Auto) 10.5 % Eosinophils (%) (Auto) 0.5 % Basophils (%) (Auto) 0.1 % Neutrophils # (Auto) 9.43 K/uL (1.4-6.5) Lymphocytes # (Auto) 0.78 K/uL (1.2-3.4) Monocytes # (Auto) 1.21 K/uL (0.11-0.59) Eosinophils # (Auto) 0.06 K/uL (0-0.5) Basophils # (Auto) 0.01 K/uL (0-0.2) RDW Standard Deviation 40.3 fL (36.4-46.3) RDW Coefficient of Variation 16.1 % (11.5-14.5) Immature Granulocyte % (Auto) 0.7 % Immature Granulocyte # (Auto) 0.08 K/uL (0.00-0.02) Hypochromasia PRESENT Microcytosis PRESENT Prothrombin Time 13.4 SECONDS (9.0-12.0) Prothromb Time International Ratio 1.3 (0.9-1.1) Activated Partial Thromboplast Time 25.0 SECONDS (21.0-31.0) Partial Thromboplastin Ratio 1.0 Potassium Level 3.0 mmol/L (3.5-5.1) Chloride Level 86 mmol/L (98-107) Carbon Dioxide Level 26 mmol/L (21-32) Anion Gap 15.0 mmol/L (3-11) Blood Urea Nitrogen 15 mg/dl (7-18) Creatinine 0.86 mg/dl (0.60-1.40) Est Creatinine Clear Calc Drug Dose 109.9 ml/min Estimated GFR () 131.1 Estimated GFR (Non- 113.1 BUN/Creatinine Ratio 17.1 (10-20) Calcium Level 8.8 mg/dl (8.5-10.1) Phosphorus Level 2.6 mg/dl (2.5-4.9) Magnesium Level 2.2 mg/dl (1.8-2.4) Total Creatine Kinase 102 U/L (39-308) Creatine Kinase MB 1.2 ng/ml (0.5-3.6) Creatine Kinase MB Ratio 1.2 (0-3.0) Troponin I < 0.015 ng/ml (0-0.045) Thyroid Stimulating Hormone (TSH) 3.190 uIu/ml (0.300-4.500) Ethyl Alcohol mg/dL < 3.0 mg/dl (0-3) Urine Color YELLOW Urine Appearance CLEAR (CLEAR) Urine pH 7.5 (4.5-7.5) Urine Specific [place] 1.006 (1.000-1.030) Urine Protein NEG (NEG) Urine Glucose (UA) NEG (NEG) Urine Ketones 1+ (NEG) Urine Occult Blood TRACE (NEG) Urine Nitrite NEG (NEG) Urine Bilirubin NEG (NEG) Urine Urobilinogen NEG (NEG) Urine Leukocyte Esterase NEG (NEG) Urine WBC (Auto) 0 /hpf (0-5) Urine RBC (Auto) 0-4 /hpf (0-4) Urine Hyaline Casts (Auto) 1-5 /lpf (0-5) Urine Epithelial Cells (Auto) 0-5 /lpf (0-5) Urine Bacteria (Auto) NEG (NEG) Urine Osmolality 245 mOms/kg (500-800) Urine Random Sodium 81 mEq/L Urine Opiates Screen NEG (NEG) Urine Methadone, Qualitative POS (NEG) Urine Barbiturates NEG (NEG) Urine Phencyclidine (PCP) Level NEG (NEG) Ur Amphetamine/Methamphetamine NEG (NEG) MDMA (Ecstasy) Screen NEG (NEG) Urine Benzodiazepines Screen NEG (NEG) Urine Cocaine Metabolite NEG (NEG) Urine Marijuana (THC) POS (NEG) Absolute Reticulocyte Count 0.10 10^6/uL (0.02-0.10) Percent Reticulocyte Count 2.6 % (0.5-2.0) Sodium Level 128 mmol/L (136-145) Osmolality 267 mOsm/kg (280-300) Lactic Acid Level 1.4 mmol/L (0.4-2.0) Iron Level 16 mcg/dl (35-175) Total Iron Binding Capacity 175 mcg/dl (250-450) Transferrin 139 mg/dl (200-360) Transferrin % Saturation 8 % (20-50) Ferritin 289.8 ng/ml (8.0-388.0) Vitamin B12 Level 962 pg/mL (211-911) Folate 2.71 ng/mL (>5.38) Procalcitonin 0.20 ng/ml (0-0.5) Test 05/19/17 12:31 05/19/17 13:15 05/19/17 14:27 Hemoglobin 8.4 g/dL (14.0-18.0) Hematocrit 25.9 % (42-52) Sodium Level 130 mmol/L (136-145) Potassium Level 3.5 mmol/L (3.5-5.1) Chloride Level 92 mmol/L (98-107) Carbon Dioxide Level 25 mmol/L (21-32) Anion Gap 13.0 mmol/L (3-11) Blood Urea Nitrogen 12 mg/dl (7-18) Creatinine 0.89 mg/dl (0.60-1.40) Est Creatinine Clear Calc Drug Dose 105.0 ml/min Estimated GFR () 129.3 Estimated GFR (Non- 111.6 BUN/Creatinine Ratio 13.9 (10-20) Random Glucose 89 mg/dl (70-99) Calcium Level 8.7 mg/dl (8.5-10.1) Ammonia < 10.0 umol/L (11-32) CSF Color COLORLESS CSF Appearance CLEAR CSF WBC 2 /uL (0-5) CSF RBC 0 /uL (0) CSF Xanthrochromic NO XANTHOCHROMIA CSF Cell Count Tube # 3 CSF Chemistry Tube # 1 CSF Glucose 56 mg/dl (40-70) CSF Total Protein 31.5 mg/dl (15.0-45.0) Micro Results: Date/Time Source Procedure Growth Status 05/19/17 02:33 Blood Blood Culture Pending Received 05/19/17 02:29 Blood Blood Culture Pending Received 05/19/17 13:15 Cerebral Spinal Fluid Acid Fast Stain Pending Received 05/19/17 13:15 Cerebral Spinal Fluid Mycobacterial Culture Pending Received 05/19/17 13:15 Cerebral Spinal Fluid Cryptococcal Antigen Pending Received 05/19/17 13:15 Cerebral Spinal Fluid Fungal Culture Pending Received 05/19/17 13:15 Cerebral Spinal Fluid Gram Stain - Final Resulted 05/19/17 13:15 Cerebral Spinal Fluid CSF Culture Pending Resulted Assessment & Plan Assessment: 36 yo male with history of metastatic colon CA presented with new onset seizure. Starting empiric vancomycin, amp, ceftriaxone, acyclovir for meningitis. Lumbar puncture results pending Plan: Loading dose: 1500 mg (24mg/kg) IV X 1 dose then: 1000 mg (16 mg/kg) q8 hours. PK: SCr 0.89, Crcl 105, T1/2 ~7.5 hours, ke 0.092 Given meningitis indication targeting upper end of goal Goal trough level estimate: between 15-20 mcg/mL. Trough ordered for 05/20 @ 0357 Pharmacy will continue to follow and will adjust dose/frequency as necessary. Thank you
[2017-05-19] MEDS ORDERED: VANCOMYCIN INJ 1,500 MG in SODIUM CHLORIDE 0.9% 500ML 500 ML IV SCH (15:00)
--- NOTE | 2017-05-19 15:30 | Progress Note ---
Medicine Progress Note Date & Time of Visit: May 19, 2017 at 14:55. Subjective Pt was seen and examined Lying in bed with family at bedside Pt is very sleepy Only open and closed eyes because he has been sleeping No seizure activity as per family since admitting Objective Last 8 Hrs Date Time Temp Pulse Resp B/P (MAP) Pulse Ox O2 Delivery O2 Flow Rate FiO2 05/19/17 12:00 Room Air 05/19/17 11:58 121 18 147/77 (100) 99 Room Air 05/19/17 08:00 Room Air Physical Exam: General- sleepy with minimal arousal Head- atraumatic Eyes- PERRL ENT- oropharynx clear Neck- no JVD Lungs- No wheezing Heart- tachycardia Abdomen- normal bowel sounds Extremities- no calf tenderness Neuro- Sleepy, does not follow commands Skin- warm & dry Laboratory Results: Last 24 Hours Test 05/19/17 00:49 05/19/17 02:20 05/19/17 02:29 05/19/17 12:26 White Blood Count 11.57 K/uL Red Blood Count 3.65 M/uL Hemoglobin 8.3 g/dL Hematocrit 25.3 % Mean Corpuscular Volume 69.3 fL Mean Corpuscular Hemoglobin 22.7 pg Mean Corpuscular Hemoglobin Concent 32.8 g/dl Platelet Count 368 K/uL Mean Platelet Volume 8.0 fL Neutrophils (%) (Auto) 81.5 % Lymphocytes (%) (Auto) 6.7 % Monocytes (%) (Auto) 10.5 % Eosinophils (%) (Auto) 0.5 % Basophils (%) (Auto) 0.1 % Neutrophils # (Auto) 9.43 K/uL Lymphocytes # (Auto) 0.78 K/uL Monocytes # (Auto) 1.21 K/uL Eosinophils # (Auto) 0.06 K/uL Basophils # (Auto) 0.01 K/uL RDW Standard Deviation 40.3 fL RDW Coefficient of Variation 16.1 % Immature Granulocyte % (Auto) 0.7 % Immature Granulocyte # (Auto) 0.08 K/uL Hypochromasia PRESENT Microcytosis PRESENT Prothrombin Time 13.4 SECONDS Prothromb Time International Ratio 1.3 Activated Partial Thromboplast Time 25.0 SECONDS Partial Thromboplastin Ratio 1.0 Sodium Level 127 mmol/L 128 mmol/L Potassium Level 3.0 mmol/L Chloride Level 86 mmol/L Carbon Dioxide Level 26 mmol/L Anion Gap 15.0 mmol/L Blood Urea Nitrogen 15 mg/dl Creatinine 0.86 mg/dl Est Creatinine Clear Calc Drug Dose 109.9 ml/min Estimated GFR () 131.1 Estimated GFR (Non- 113.1 BUN/Creatinine Ratio 17.1 Random Glucose 127 mg/dl Calcium Level 8.8 mg/dl Phosphorus Level 2.6 mg/dl Magnesium Level 2.2 mg/dl Total Creatine Kinase 102 U/L Creatine Kinase MB 1.2 ng/ml Creatine Kinase MB Ratio 1.2 Troponin I < 0.015 ng/ml Thyroid Stimulating Hormone (TSH) 3.190 uIu/ml Ethyl Alcohol mg/dL < 3.0 mg/dl Urine Color YELLOW Urine Appearance CLEAR Urine pH 7.5 Urine Specific [place] 1.006 Urine Protein NEG Urine Glucose (UA) NEG Urine Ketones 1+ Urine Occult Blood TRACE Urine Nitrite NEG Urine Bilirubin NEG Urine Urobilinogen NEG Urine Leukocyte Esterase NEG Urine WBC (Auto) 0 /hpf Urine RBC (Auto) 0-4 /hpf Urine Hyaline Casts (Auto) 1-5 /lpf Urine Epithelial Cells (Auto) 0-5 /lpf Urine Bacteria (Auto) NEG Urine Osmolality 245 mOms/kg Urine Random Sodium 81 mEq/L Urine Opiates Screen NEG Urine Methadone, Qualitative POS Urine Barbiturates NEG Urine Phencyclidine (PCP) Level NEG Ur Amphetamine/Methamphetamine NEG MDMA (Ecstasy) Screen NEG Urine Benzodiazepines Screen NEG Urine Cocaine Metabolite NEG Urine Marijuana (THC) POS Absolute Reticulocyte Count 0.10 10^6/uL Percent Reticulocyte Count 2.6 % Osmolality 267 mOsm/kg Lactic Acid Level 1.4 mmol/L Iron Level 16 mcg/dl Total Iron Binding Capacity 175 mcg/dl Transferrin 139 mg/dl Transferrin % Saturation 8 % Ferritin 289.8 ng/ml Vitamin B12 Level 962 pg/mL Folate 2.71 ng/mL Procalcitonin 0.20 ng/ml Test 05/19/17 12:31 05/19/17 13:15 05/19/17 14:27 Hemoglobin 8.4 g/dL Hematocrit 25.9 % Sodium Level 130 mmol/L Potassium Level 3.5 mmol/L Chloride Level 92 mmol/L Carbon Dioxide Level 25 mmol/L Anion Gap 13.0 mmol/L Blood Urea Nitrogen 12 mg/dl Creatinine 0.89 mg/dl Est Creatinine Clear Calc Drug Dose 105.0 ml/min Estimated GFR () 129.3 Estimated GFR (Non- 111.6 BUN/Creatinine Ratio 13.9 Random Glucose 89 mg/dl Calcium Level 8.7 mg/dl Ammonia < 10.0 umol/L CSF Color COLORLESS CSF Appearance CLEAR CSF WBC 2 /uL CSF RBC 0 /uL CSF Xanthrochromic NO XANTHOCHROMIA CSF Cell Count Tube # 3 CSF Chemistry Tube # 1 CSF Glucose 56 mg/dl CSF Total Protein 31.5 mg/dl Date/Time Source Procedure Growth Status 05/19/17 02:33 Blood Blood Culture Pending Received 05/19/17 02:29 Blood Blood Culture Pending Received 05/19/17 13:15 Cerebral Spinal Fluid Acid Fast Stain Pending Received 05/19/17 13:15 Cerebral Spinal Fluid Mycobacterial Culture Pending Received 05/19/17 13:15 Cerebral Spinal Fluid Cryptococcal Antigen Pending Received 05/19/17 13:15 Cerebral Spinal Fluid Fungal Culture Pending Received 05/19/17 13:15 Cerebral Spinal Fluid Gram Stain - Final Resulted 05/19/17 13:15 Cerebral Spinal Fluid CSF Culture Pending Resulted Assessment & Plan New onset seizures 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 Nolasco Procalcitonin normal LP was done with no complication CSF fluid was sent for culture, CMV, HSV, Bacteria, Lyme and Cytology Starting on empirical abx with Ampicillin, Rocephin, Vanco, and Acyclovir adding Oncology Consulted Case Discussed with Dr. Lang, recommended to hold on the steroid for now Will get an EEG Continue seizure precaution 1 to 1 observation Colorectal cancer status post surgery and chemotherapy. CT abd/pelvis showed marked progression of peritoneal metastatic disease as compared to 01/03/2017. There is now evidence of hepatic metastatic disease, as well as retroperitoneal and pelvic sidewall adenopathy. Poor prognosis Oncology consulted Anemia Hgb 8.4 No signs of active bleeding Monitor CBC Hyponatremia Possible 2nd to poor oral intake Na on admission 127 Na 130 now Continue monitor On IVF DVT px on SCDs (recent LP) CODE STATUS FULL CODE Current Inpatient Medications: Current Inpatient Medications Medications (Trade) Dose Ordered Sig/Luis Manuel Route Start Time Stop Time Status Last Admin Dose Admin Levetiracetam (Keppra Tab) 500 mg BID PO 05/19/17 21:00 06/18/17 20:59 Lorazepam 1 mg/ Syringe 1 ml @ 0.5 mls/min UD PRN IV 05/19/17 03:15 06/18/17 03:14 Ioversol (Optiray 320) 125 ml UD PRN IV 05/19/17 03:15 05/23/17 03:14 Acetaminophen (Tylenol Tab) 650 mg Q4H PRN PO 05/19/17 03:15 06/18/17 03:14 Methadone HCl (Dolophine Tab) 10 mg BID PO 05/19/17 09:00 06/02/17 08:59 Oxycodone HCl (Roxicodone Immediate Rel Tab) 5 mg Q4H PRN PO 05/19/17 03:15 06/02/17 03:14 Prochlorperazine Edisylate 5 mg/ Syringe 5 ml @ 5 mls/min Q6H PRN IV 05/19/17 03:15 06/18/17 03:14 Senna/Docusate Sodium (Senokot S Tab) 1 tab BID PO 05/19/17 09:00 06/18/17 08:59 Hydromorphone HCl (Dilaudid Inj) 0.5 mg Q4H PRN IV 05/19/17 03:15 06/02/17 03:14 05/19/17 14:35 0.5 MG Ketorolac Tromethamine (Toradol Inj) 15 mg Q6H PRN IV. 05/19/17 03:15 05/24/17 03:14 Lorazepam (Ativan Inj) 1 mg Q5M PRN IV 05/19/17 04:45 06/18/17 04:44 05/19/17 07:34 1 MG Potassium Chloride/Sodium Chloride 1,000 ml @ 100 mls/hr Q10H ONCE IV 05/19/17 05:00 05/19/17 14:59 05/19/17 05:13 100 MLS/HR Senna/Docusate Sodium (Senokot S Tab) 1 tab BID PO 05/19/17 09:00 06/18/17 08:59 Polyethylene (Miralax Powder Packet) 17 gm DAILY PRN PO 05/19/17 05:30 06/18/17 05:29 Lorazepam (Ativan Inj) 1 mg Q2H PRN IV 05/19/17 06:45 06/18/17 04:59 05/19/17 10:15 1 MG Gadobutrol (Gadavist) 6 mmol UD PRN IV 05/19/17 11:30 05/23/17 11:29 Ampicillin Sodium 2000 mg/Sodium Chloride 100 ml @ 200 mls/hr Q4H IV 05/19/17 17:00 05/29/17 16:59 Ceftriaxone Sodium 2000 mg/ Dextrose 70 ml @ 100 mls/hr Q12H IV 05/19/17 14:00 05/29/17 13:59 05/19/17 14:31 100 MLS/HR Vancomycin HCl 1000 mg/Sodium Chloride 270 ml @ 125 mls/hr Q12H IV 05/19/17 22:00 05/29/17 21:59 Miscellaneous Information (Consult) 1 ea UD PRN N/A 05/19/17 13:15 06/18/17 13:14 Acyclovir Sodium 500 mg/Dextrose 110 ml @ 110 mls/hr Q8H IV 05/19/17 14:00 05/29/17 13:59 05/19/17 14:31 110 MLS/HR Vancomycin HCl 1500 mg/Sodium Chloride 530 ml @ 200 mls/hr TODAY@1500 IV 05/19/17 15:00 05/29/17 14:59
[2017-05-19] MEDS ORDERED: ACETAMINOPHEN IV 650 MG in EMPTY BAG 0 ML IV PRN (16:00)
--- NOTE | 2017-05-19 16:15 | Anesthesiology Progress Note ---
Anesthesia Progress Note Date of Service May 19, 2017. Progress Notes 36 yo male presented with mental status change. Had lumbar puncture attempted by neurologist without success. I was asked to perform LP to obtain CSF for diagnosis. Consent had been obtained earlier by neurologist. Pt positioned left lateral decubitus. Lumbar skin cleansed with Duraprep. Local given to skin with 1% lidocaine at L3 -L4 interspace. Spinal needle advanced until dural puncture on second attempt. 2cc CSF collected into each of 4 sterile test tubes, labeled and sent to lab for analysis as ordered by neurologist. Pt tolerated procedure well, left in care of med-surg staff.
[2017-05-19] MEDS ORDERED: METOPROLOL TARTRATE 1 MG/ML VIAL IV PRN (18:15)
[2017-05-19] MEDS: AMPICILLIN IV 2,000 MG in SODIUM CHLOR 0.9% AD-VAN 100ML 100 ML IV SCH ×2 (18:36→20:32)
--- NOTE | 2017-05-19 18:37 | PROGRESS NOTE ---
DATE: 05/19/2017 SUBJECTIVE: I spoke to Dr. Cabrales this evening to go over some of the results on the patient's spinal fluid. His white count in the CSF was 2, red count 0, it was clear and colorless, glucose and total protein were normal. Microbiology is pending. Pathology is pending. I have reviewed the patient's vitals. Intermittently, but in a fairly sustained a pattern he has been fairly tachycardic and modestly hypertensive. At the same time, he did not appear to be in pain. He has recently been febrile, but the tachycardia and hypertension much preceded that. I raised the question to Dr. Cabrales whether or not the patient could have a PRES-type picture, which I think is certainly possible and can produce unusual findings on MRI. Certainly, a carcinomatous meningitis would be much more common radiographically and in this setting. I asked Dr. Cabrales considering treating his hypertension, we spoke about the use of fluids, for tabs thiamine, folic acid. Although ammonia is normal. LFTs have not been done. We both agree that he does not appear to be in pain as the cause of the hypertension and tachycardia. Await the results of the pathology. The patient is empirically covered for meningitis, although does not appear to have a meningeal process. Await oncology consultation. We will continue to follow with you. [place]ERT[place]
[2017-05-19] MEDS ORDERED: LEVETIRACETAM 500 MG TAB PO SCH (21:00)
[2017-05-19] MEDS: LEVETIRACETAM IV 500 MG in DEXTROSE 5% 100ML 100 ML IV SCH (21:22)
[2017-05-19] MEDS: VANCOMYCIN INJ 1,000 MG in SODIUM CHLORIDE 0.9% 250ML 250 ML IV SCH ×2 (22:09→23:59)
[2017-05-20] VITALS (19 sets, daily range): BP systolic 153–169; BP diastolic 70–110; PULSE 114–149; TEMP 36.5–37.5; O2SAT 96–99
[2017-05-20] MEDS: AMPICILLIN IV 2,000 MG in SODIUM CHLOR 0.9% AD-VAN 100ML 100 ML IV SCH ×6 (02:14→20:37)
[2017-05-20] MEDS: HYDROmorphone INJ 0.5 MG/0.5 ML SYR IV PRN ×2 (02:15→07:56)
[2017-05-20] MEDS: CEFTRIAXONE SOD INJ 2,000 MG in DEXTROSE 5% 50ML 50 ML IV SCH ×2 (03:29→14:47)
[2017-05-20] MEDS: LORAZEPAM 2 MG/ML 1 ML VIAL IV PRN ×3 (04:32→22:24)
[2017-05-20 06:25] LABS: BASO % 0.2 %; BASO ABS # 0.02 K/uL (0-0.2); EOS % 0.7 %; EOS ABS # 0.08 K/uL (0-0.5); HEMATOCRIT 24.6 % (42-52); HEMOGLOBIN 7.7 g/dL (14.0-18.0); IG# 0.07 K/uL (0.00-0.02); LYMPH % 13.7 %; LYMPH ABS # 1.53 K/uL (1.2-3.4); MEAN CELL VOLUME 71.5 fL (80-100); MEAN CORPUSCULAR HEMOGLOBIN 22.4 pg (25-34); MEAN CORPUSCULAR HGB CONC 31.3 g/dl (32-36); MEAN PLATELET VOLUME 8.1 fL (7.4-10.4); MONO % 8.9 %; MONO ABS # 0.99 K/uL (0.11-0.59); NEUT % 75.9 %; NEUT ABS # 8.45 K/uL (1.4-6.5); PLATELET COUNT 276 K/uL (130-400); RED CELL DISTRIBUTION WIDTH CV 16.7 % (11.5-14.5); RED CELL DISTRIBUTION WIDTH SD 43.3 fL (36.4-46.3); WHITE BLOOD COUNT 11.14 K/uL (4.8-10.8)
[2017-05-20] MEDS: ACYCLOVIR SOD INJ 500 MG in DEXTROSE 5% 100ML 100 ML IV SCH ×3 (06:30→22:23)
[2017-05-20 07:00] LABS: ALBUMIN 1.9 gm/dl (3.4-5.0); CALCIUM 8.2 mg/dl (8.5-10.1); CREATININE 0.86 mg/dl (0.60-1.40); POTASSIUM 2.9 mmol/L (3.5-5.1); TOTAL PROTEIN 5.9 gm/dl (6.4-8.2)
[2017-05-20] MEDS: LEVETIRACETAM IV 500 MG in DEXTROSE 5% 100ML 100 ML IV SCH ×2 (07:56→21:42)
[2017-05-20] MEDS: METHADONE HCL 10 MG TAB PO SCH ×2 (09:00→20:44)
[2017-05-20] MEDS: DOCUSATE SODIUM/SENNA 50/8.6MG TAB PO SCH ×2 (09:00→20:44)
--- NOTE | 2017-05-20 09:08 | ONCOLOGY CONSULTATION ---
DATE OF CONSULTATION: 05/20/2017 REASON FOR CONSULTATION: Sudden onset seizures in a 36-year-old gentleman who suffered from metastatic colorectal cancer. HISTORY OF PRESENT ILLNESS: Mr. Roberts is a pleasant, but unfortunate 36-year-old gentleman well known to [facility], currently under Dr. Huber's care with metastatic colorectal cancer. The patient on the day of admission suffered seizures x3. His initial seizure was witnessed at home, lasting about 30 seconds when the patient became rigid and unresponsive. There was a notable postictal period as well. Emergency personnel were summoned and apparently Fabiola had additional seizures in the ambulance and also in the Emergency Room. He has been preemptively treated with Keppra. He is for the most part nonverbal and unable to provide pertinent information today. I reviewed Dr. Huber's last clinical note dictated on April 25 pointing out this gentleman originally suffered from stage III disease (T2, N2b) resected signet ring, sigmoid carcinoma. He had 8 of 16 involved lymph nodes. Fabiola completed FOLFOX chemotherapy in August 2015. Unfortunately, he developed a mesenteric metastatic disease and had been on Lonsurf; however, has not been on drug for close to a month because of insurance issues. He was to see Dr. Huber later on this week as an outpatient. Imaging done prior to admission includes a CT scan of the abdomen and pelvis, which clearly demonstrates progressive mesenteric as well as hepatic metastatic disease. Additionally, MRI of the brain was performed, which is suggestive of a large and extensive foci, a FLAIR signal abnormality seen involving predominantly the subcortical white matter involving the temporal, parietal and occipital lobes. 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 Lumbar puncture has been performed with spinal fluid cytology pending. Clinically, again the patient for the most part is nonverbal and not following instructions readily. He has been given Keppra intravenously. The neurology service is presently on consult. PAST MEDICAL HISTORY: Again, significant for metastatic colorectal cancer and asthma. PAST SURGICAL HISTORY: Negative. HOME MEDICATIONS: Include Ativan 1 mg every 8 hours for anxiety, Marinol 5 mg 1 p.o. daily, methadone 10 mg q. 12 hours, OxyContin 20 mg p.o. q. 12 hours, tramadol 50 mg p.r.n. q. 4 hours as needed for pain, Ventolin inhaler b.i.d. p.r.n., Zofran ODT 4 mg p.o. p.r.n. ALLERGIES: No known drug allergies. FAMILY HISTORY: Negative for colorectal cancer, but apparently 1 family member on the paternal side suffered from a [employer] type of tumor. Maternal side is also recorded as having history of both prostate and breast cancer. REVIEW OF SYSTEMS: Unobtainable because of the patient's current mental status. PHYSICAL EXAMINATION: GENERAL: Also limited because of lack of cooperation. Nonetheless, in general, Fabiola is a 36-year-old cachectic young man in no apparent distress. VITAL SIGNS: Temperature 36.7, pulse 149, respiratory rate 24, blood pressure 169/104. SKIN: Without rash or lesion. HEENT: Again, head appears atraumatic and normocephalic. I could not do ocular examination because of lack of cooperation. His nares appear to be patent. Throat appears to be clear, but again examination is limited. NECK: Supple. HEART: Tachycardic, but regular. LUNGS: Clear to auscultation bilaterally. ABDOMEN: Soft, nontender, nondistended, without palpable hepatosplenomegaly. EXTREMITIES: He does wiggle his toes on command, but little else. NEUROLOGIC: Again, could not be performed because of lack of cooperation. LABORATORY DATA: WBC count 11,140, hemoglobin 7.7, platelet count 276,000. Sodium 132, potassium 2.9, chloride 96, carbon dioxide 26, BUN 15, creatinine 0.86, albumin 1.9. IMPRESSION: 1. 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 2. Abdominal pain with nausea and vomiting. 3. Subacute hyponatremia. 4. Hypokalemia. 5. Metastatic colorectal cancer. PLAN: This gentleman unfortunately has taken a clinical turn for the worse. MRI of the brain suggests leptomeningeal disease. Appropriately, a lumbar puncture was performed with cytology pending. His mental status is tenuous at this time; however, seizures appear to be controlled. He has not received any form of chemotherapy for close to a month according to family members present at bedside. He was previously on Lonsurf; however, has run into financial constraints and insurance issues in this regard. There is also a mention in Dr. Huber's last clinical note that he may be eligible for a clinical trial. Unfortunately, with leptomeningeal spread, however, I would doubt very much he qualifies for any trials at this juncture. His prognosis is exceedingly poor. I agree with current management at this time. I may look into the possibility of radiation therapy as a palliative maneuver, but to my knowledge, there is no effective intrathecal chemotherapy and his treatment moving forward will be supportive in nature. I will defer to Dr. Huber on definitive treatments from this point forward. I agree with medical management providing antiepileptics and replacement of electrolytes. In my estimation, this gentleman will need one-on-one nursing until he is neurologically stable. Thank you very much for allowing us to participate in his care. If you have any questions or concerns, feel free to contact me at any time. EVERTON
[2017-05-20] MEDS: POTASSIUM CHLR 10 MEQ / WTR 10 MEQ in PREMIXED WATER 100 ML IV SCH ×4 (09:10→15:32)
[2017-05-20] MEDS: KETOROLAC TROMETHAMINE 15 MG/ML VIAL IV. PRN (10:05)
[2017-05-20] MEDS: VANCOMYCIN INJ 1,000 MG in SODIUM CHLORIDE 0.9% 250ML 250 ML IV SCH ×2 (11:33→22:24)
--- NOTE | 2017-05-20 13:37 | Progress Note ---
Medicine Progress Note Date & Time of Visit: May 20, 2017 at 13:07. Subjective Pt was seen and examined Lying in bed with minimal response with family is at bedside Family said that pt seems to be a little bit more responsive today They said that he walks to the bathroom with assistance today Nurse said that pt woke and used the bathroom Pt has not been awake for me. He has been sleeping each time i checked his room I spoke to pathologist Dr. Hummel and he said that the cytology is negative for leptomeningeal carcinomatosis Objective Last 8 Hrs Date Time Temp Pulse Resp B/P (MAP) Pulse Ox O2 Delivery O2 Flow Rate FiO2 05/20/17 11:15 36.7 114 20 /98 97 05/20/17 10:45 36.8 116 18 155/96 97 05/20/17 10:15 36.9 116 18 158/92 97 05/20/17 10:00 36.9 114 18 162/96 97 05/20/17 09:55 36.9 118 20 168/108 98 05/20/17 07:40 36.7 149 24 169/104 (125) 96 Room Air Physical Exam: General- sleepy with minimal arousal Head- atraumatic Eyes- PERRL ENT- oropharynx clear Neck- no JVD Lungs- No wheezing Heart- tachycardia Abdomen- normal bowel sounds Extremities- no calf tenderness Neuro- Sleepy, does not follow commands Skin- warm & dry Laboratory Results: Last 24 Hours Test 05/19/17 13:12 05/19/17 13:15 05/19/17 14:27 05/20/17 05:13 CSF Color COLORLESS CSF Appearance CLEAR CSF WBC 2 /uL CSF RBC 0 /uL CSF Xanthrochromic NO XANTHOCHROMIA CSF Cell Count Tube # 3 CSF Chemistry Tube # 1 CSF Glucose 56 mg/dl CSF Total Protein 31.5 mg/dl Random Glucose 89 mg/dl 98 mg/dl White Blood Count 11.14 K/uL Red Blood Count 3.44 M/uL Hemoglobin 7.7 g/dL Hematocrit 24.6 % Mean Corpuscular Volume 71.5 fL Mean Corpuscular Hemoglobin 22.4 pg Mean Corpuscular Hemoglobin Concent 31.3 g/dl Platelet Count 276 K/uL Mean Platelet Volume 8.1 fL Neutrophils (%) (Auto) 75.9 % Lymphocytes (%) (Auto) 13.7 % Monocytes (%) (Auto) 8.9 % Eosinophils (%) (Auto) 0.7 % Basophils (%) (Auto) 0.2 % Neutrophils # (Auto) 8.45 K/uL Lymphocytes # (Auto) 1.53 K/uL Monocytes # (Auto) 0.99 K/uL Eosinophils # (Auto) 0.08 K/uL Basophils # (Auto) 0.02 K/uL RDW Standard Deviation 43.3 fL RDW Coefficient of Variation 16.7 % Immature Granulocyte % (Auto) 0.6 % Immature Granulocyte # (Auto) 0.07 K/uL Polychromasia 1+ Hypochromasia PRESENT Microcytosis PRESENT Sodium Level 132 mmol/L Potassium Level 2.9 mmol/L Chloride Level 96 mmol/L Carbon Dioxide Level 26 mmol/L Anion Gap 10.0 mmol/L Blood Urea Nitrogen 15 mg/dl Creatinine 0.86 mg/dl Est Creatinine Clear Calc Drug Dose 112.8 ml/min Estimated GFR () 131.1 Estimated GFR (Non- 113.1 BUN/Creatinine Ratio 17.7 Calcium Level 8.2 mg/dl Total Bilirubin 0.5 mg/dl Aspartate Amino Transf (AST/SGOT) 22 U/L Alanine Aminotransferase (ALT/SGPT) 15 U/L Alkaline Phosphatase 96 U/L Total Protein 5.9 gm/dl Albumin 1.9 gm/dl Globulin 4.0 gm/dl Albumin/Globulin Ratio 0.5 Date/Time Source Procedure Growth Status 05/19/17 13:15 Cerebral Spinal Fluid Acid Fast Stain - Final Resulted 05/19/17 13:15 Cerebral Spinal Fluid Mycobacterial Culture Pending Resulted 05/19/17 13:15 Cerebral Spinal Fluid Cryptococcal Antigen - Final NO CRYPTOCOCCAL ANTIGEN DETECTED Complete 05/19/17 13:15 Cerebral Spinal Fluid Fungal Culture Pending Received 05/19/17 13:15 Cerebral Spinal Fluid Gram Stain - Final Resulted 05/19/17 13:15 Cerebral Spinal Fluid CSF Culture - Preliminary NO GROWTH TO DATE. 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 Nolasco Procalcitonin normal LP was done with no complication CSF fluid was sent for culture, CMV, HSV, Bacteria, Lyme and Cytology Starting on empirical abx with Ampicillin, Rocephin, Vanco, and Acyclovir adding Oncology Consulted Case Discussed with Dr. Lang, recommended to hold on the steroid for now Will get an EEG Continue seizure precaution 1 to 1 observation 05/20 No seizure activity Continue Keppra 500mg IV BID (since pt cannot take any PO yet) talk to pathologist Dr. Hummel and said that the CSF cytology negative for carcinomatosis meningitis CSF culture no growth Continue IV abx for now Will consult ID Consider PRES syndrome Will need BP control Colorectal cancer status post surgery and chemotherapy. CT abd/pelvis showed marked progression of peritoneal metastatic disease as compared to 01/03/2017. There is now evidence of hepatic metastatic disease, as well as retroperitoneal and pelvic sidewall adenopathy. Very Poor prognosis Oncology consulted Family would like to speak with palliative Elevated BP Will add low dose of IV enalapril to control BP Continue monitor BP Anemia Hgb dropped to 7.7 Will transfuse 2 units PRBC No signs of active bleeding Monitor CBC Tachycardia Possible related to Low hgb and low platelet Transfuse 2 units PRBC Continue monitor in tele Hypokalemia K replaced Monitor potassium Hyponatremia Possible 2nd to poor oral intake Na on admission 127 Na 130 --> 132 today Continue monitor Received IVF in the ER DVT px on SCDs (recent LP) CODE STATUS FULL CODE Current Inpatient Medications: Current Inpatient Medications Medications (Trade) Dose Ordered Sig/Luis Manuel Route Start Time Stop Time Status Last Admin Dose Admin Lorazepam 1 mg/ Syringe 1 ml @ 0.5 mls/min UD PRN IV 05/19/17 03:15 06/18/17 03:14 Ioversol (Optiray 320) 125 ml UD PRN IV 05/19/17 03:15 05/23/17 03:14 Acetaminophen (Tylenol Tab) 650 mg Q4H PRN PO 05/19/17 03:15 06/18/17 03:14 Methadone HCl (Dolophine Tab) 10 mg BID PO 05/19/17 09:00 06/02/17 08:59 Oxycodone HCl (Roxicodone Immediate Rel Tab) 5 mg Q4H PRN PO 05/19/17 03:15 06/02/17 03:14 Prochlorperazine Edisylate 5 mg/ Syringe 5 ml @ 5 mls/min Q6H PRN IV 05/19/17 03:15 06/18/17 03:14 Hydromorphone HCl (Dilaudid Inj) 0.5 mg Q4H PRN IV 05/19/17 03:15 06/02/17 03:14 05/20/17 07:56 0.5 MG Ketorolac Tromethamine (Toradol Inj) 15 mg Q6H PRN IV. 05/19/17 03:15 05/24/17 03:14 05/20/17 10:05 15 MG Lorazepam (Ativan Inj) 1 mg Q5M PRN IV 05/19/17 04:45 06/18/17 04:44 05/20/17 07:56 1 MG Senna/Docusate Sodium (Senokot S Tab) 1 tab BID PO 05/19/17 09:00 06/18/17 08:59 Polyethylene (Miralax Powder Packet) 17 gm DAILY PRN PO 05/19/17 05:30 06/18/17 05:29 Lorazepam (Ativan Inj) 1 mg Q2H PRN IV 05/19/17 06:45 06/18/17 04:59 05/20/17 04:32 1 MG Gadobutrol (Gadavist) 6 mmol UD PRN IV 05/19/17 11:30 05/23/17 11:29 Ampicillin Sodium 2000 mg/Sodium Chloride 100 ml @ 200 mls/hr Q4H IV 05/19/17 17:00 05/29/17 16:59 05/20/17 09:10 200 MLS/HR Ceftriaxone Sodium 2000 mg/ Dextrose 70 ml @ 100 mls/hr Q12H IV 05/19/17 14:00 05/29/17 13:59 05/20/17 03:29 100 MLS/HR Vancomycin HCl 1000 mg/Sodium Chloride 270 ml @ 125 mls/hr Q12H IV 05/19/17 22:00 05/29/17 21:59 05/20/17 11:33 125 MLS/HR Miscellaneous Information (Consult) 1 ea UD PRN N/A 3/4/18 13:15 06/18/17 13:14 Acyclovir Sodium 500 mg/Dextrose 110 ml @ 110 mls/hr Q8H IV 05/19/17 14:00 05/29/17 13:59 05/20/17 06:30 110 MLS/HR Acetaminophen 650 mg/Empty Bag 65 ml @ 260 mls/hr Q6H PRN IV 05/19/17 16:00 06/18/17 15:59 05/19/17 16:50 260 MLS/HR Metoprolol Tartrate (Lopressor Iv) 2.5 mg Q4 PRN IV 05/19/17 18:15 06/18/17 18:14 Levetiracetam 500 mg/Dextrose 105 ml @ 420 mls/hr Q12H IV 05/19/17 21:00 06/18/17 20:59 05/20/17 07:56 420 MLS/HR
--- NOTE | 2017-05-20 14:16 | Neurology Progress Notes ---
Neurology Progress Note Date of Service May 20, 2017. Venkatesh Hicks is a 36 year old male who has a PMH of metastatic colon cancer status post surgery in 2014 s/p chemotherapy, OCD as per records, chronic pain on narcotics, chronic anemia, (baseline hemoglobin of 10 in April 2017), asthma , chronic hyponatremia. He follows with [facility] oncologist and was last seen 04/2017 , there was a delay in treatment due to insurance issues. He has ongoing abdominal pain and he was told he had progression of his CA. He was referred to [facility] for experimental trial but he was not able to travel. Today he is awake and responding. family is in the room and state he is not quite back to baseline but he is much better than over the weekend. He states he is still having alot of abdominal pain. He has been OOB walking to the bathroom. He has not had any solid foods but he is drinking water and keeping it down. Objective Date Time Temp Pulse Resp B/P (MAP) Pulse Ox O2 Delivery O2 Flow Rate FiO2 05/20/17 11:15 36.7 114 20 /98 97 05/20/17 10:45 36.8 116 18 155/96 97 05/20/17 10:15 36.9 116 18 158/92 97 05/20/17 10:00 36.9 114 18 162/96 97 05/20/17 09:55 36.9 118 20 168/108 98 05/20/17 07:40 36.7 149 24 169/104 (125) 96 Room Air 05/20/17 04:00 37.3 126 16 97 Room Air 05/20/17 04:00 Room Air 05/19/17 23:59 Room Air 05/19/17 23:22 36.7 136 16 157/99 (118) 97 Room Air 05/19/17 20:00 Room Air 05/19/17 19:58 37.8 140 18 135/93 (107) 94 05/19/17 17:15 36.8 05/19/17 16:00 Room Air 05/19/17 16:00 38.5 05/19/17 15:57 156 18 176/95 (122) 97 Room Air Last 24 Hours Test 05/19/17 14:27 05/20/17 05:13 Random Glucose 89 mg/dl 98 mg/dl White Blood Count 11.14 K/uL Red Blood Count 3.44 M/uL Hemoglobin 7.7 g/dL Hematocrit 24.6 % Mean Corpuscular Volume 71.5 fL Mean Corpuscular Hemoglobin 22.4 pg Mean Corpuscular Hemoglobin Concent 31.3 g/dl Platelet Count 276 K/uL Mean Platelet Volume 8.1 fL Neutrophils (%) (Auto) 75.9 % Lymphocytes (%) (Auto) 13.7 % Monocytes (%) (Auto) 8.9 % Eosinophils (%) (Auto) 0.7 % Basophils (%) (Auto) 0.2 % Neutrophils # (Auto) 8.45 K/uL Lymphocytes # (Auto) 1.53 K/uL Monocytes # (Auto) 0.99 K/uL Eosinophils # (Auto) 0.08 K/uL Basophils # (Auto) 0.02 K/uL RDW Standard Deviation 43.3 fL RDW Coefficient of Variation 16.7 % Immature Granulocyte % (Auto) 0.6 % Immature Granulocyte # (Auto) 0.07 K/uL Polychromasia 1+ Hypochromasia PRESENT Microcytosis PRESENT Sodium Level 132 mmol/L Potassium Level 2.9 mmol/L Chloride Level 96 mmol/L Carbon Dioxide Level 26 mmol/L Anion Gap 10.0 mmol/L Blood Urea Nitrogen 15 mg/dl Creatinine 0.86 mg/dl Est Creatinine Clear Calc Drug Dose 112.8 ml/min Estimated GFR () 131.1 Estimated GFR (Non- 113.1 BUN/Creatinine Ratio 17.7 Calcium Level 8.2 mg/dl Total Bilirubin 0.5 mg/dl Aspartate Amino Transf (AST/SGOT) 22 U/L Alanine Aminotransferase (ALT/SGPT) 15 U/L Alkaline Phosphatase 96 U/L Total Protein 5.9 gm/dl Albumin 1.9 gm/dl Globulin 4.0 gm/dl Albumin/Globulin Ratio 0.5 Imaging: CT abdomen- Overall marked progression of peritoneal metastatic disease as compared to 01/03/2017. There is now evidence of hepatic metastatic disease, as well as retroperitoneal and pelvic sidewall adenopathy. There is diffuse hypoperfusion of the right kidney with mild right hydronephrosis. This is likely related to an obstructing lesion along the distal right ureter although this is difficult to assess. There is gas and fluid identified in the gallbladder fossa between the gallbladder and the liver. This is of indeterminant significance and may represent a necrotic implant or less likely an intervening loop of bowel. Abscess would be impossible to exclude. Clinical correlation will be essential. Consider ultrasound for further assessment if there is strong clinical concern for abscess. Exam: Gen: alert ill appearing responds to questions slow to answer lungs course breath sounds CV RRR strength- overall deconditioned and weak Current Inpatient Medications Medications (Trade) Dose Ordered Sig/Luis Manuel Route Start Time Stop Time Status Last Admin Dose Admin Lorazepam 1 mg/ Syringe 1 ml @ 0.5 mls/min UD PRN IV 05/19/17 03:15 06/18/17 03:14 Ioversol (Optiray 320) 125 ml UD PRN IV 05/19/17 03:15 05/23/17 03:14 Acetaminophen (Tylenol Tab) 650 mg Q4H PRN PO 05/19/17 03:15 06/18/17 03:14 Methadone HCl (Dolophine Tab) 10 mg BID PO 05/19/17 09:00 06/02/17 08:59 Oxycodone HCl (Roxicodone Immediate Rel Tab) 5 mg Q4H PRN PO 05/19/17 03:15 06/02/17 03:14 Prochlorperazine Edisylate 5 mg/ Syringe 5 ml @ 5 mls/min Q6H PRN IV 05/19/17 03:15 06/18/17 03:14 Hydromorphone HCl (Dilaudid Inj) 0.5 mg Q4H PRN IV 05/19/17 03:15 06/02/17 03:14 05/20/17 07:56 0.5 MG Ketorolac Tromethamine (Toradol Inj) 15 mg Q6H PRN IV. 05/19/17 03:15 05/24/17 03:14 05/20/17 10:05 15 MG Lorazepam (Ativan Inj) 1 mg Q5M PRN IV 05/19/17 04:45 06/18/17 04:44 05/20/17 07:56 1 MG Senna/Docusate Sodium (Senokot S Tab) 1 tab BID PO 05/19/17 09:00 06/18/17 08:59 Polyethylene (Miralax Powder Packet) 17 gm DAILY PRN PO 05/19/17 05:30 06/18/17 05:29 Lorazepam (Ativan Inj) 1 mg Q2H PRN IV 05/19/17 06:45 06/18/17 04:59 05/20/17 04:32 1 MG Gadobutrol (Gadavist) 6 mmol UD PRN IV 05/19/17 11:30 05/23/17 11:29 Ampicillin Sodium 2000 mg/Sodium Chloride 100 ml @ 200 mls/hr Q4H IV 05/19/17 17:00 05/29/17 16:59 05/20/17 09:10 200 MLS/HR Ceftriaxone Sodium 2000 mg/ Dextrose 70 ml @ 100 mls/hr Q12H IV 05/19/17 14:00 05/29/17 13:59 05/20/17 03:29 100 MLS/HR Vancomycin HCl 1000 mg/Sodium Chloride 270 ml @ 125 mls/hr Q12H IV 05/19/17 22:00 05/29/17 21:59 05/20/17 11:33 125 MLS/HR Miscellaneous Information (Consult) 1 ea UD PRN N/A 05/19/17 13:15 06/18/17 13:14 Acyclovir Sodium 500 mg/Dextrose 110 ml @ 110 mls/hr Q8H IV 05/19/17 14:00 05/29/17 13:59 05/20/17 06:30 110 MLS/HR Acetaminophen 650 mg/Empty Bag 65 ml @ 260 mls/hr Q6H PRN IV 05/19/17 16:00 06/18/17 15:59 05/19/17 16:50 260 MLS/HR Metoprolol Tartrate (Lopressor Iv) 2.5 mg Q4 PRN IV 05/19/17 18:15 06/18/17 18:14 Levetiracetam 500 mg/Dextrose 105 ml @ 420 mls/hr Q12H IV 05/19/17 21:00 06/18/17 20:59 05/20/17 07:56 420 MLS/HR Enalaprilat 1.25 mg/Dextrose 26 ml @ 100 mls/hr BID IV 05/20/17 21:00 06/19/17 20:59 Impression 36 year old with metastatic colon CA s/p surgery 2015 and chemotherapy with new onset seizure Plan 1. study from Eur J Radiol 2013 Nov;82 (11):1964-72. doi 10.1016/ [email or web address]. Epub 2012Sep 01. 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 Study describes abnormalities on MRI that are reversible and should have repeat imaging in approximately 7days. 2. continue Keppra 500 mg BID due to witnessed seizure activity 3. would avoid sudden withdrawal of ativan and use of Ultram which can lower seizure threshold 4. oncology for further recommendations 5. ID - for further recommendations of antibiotics 6. continue to follow for cytology 7. repeat MRI with and without contrast to evaluate for resolve of changes in brain findings. 8. PT/OT for discharge needs 9. cytology preliminary findings no abnormalities 10. pain mgt per primary team I have seen and discussed above patient with Dr Faith Nolasco, neurology Unclear if there was benzo use or withdrawal. May repeat MRI tomorr or next day , see if MRI changes (PRES,post sz) improve consider repeat LP BEBETO Nolasco MD
--- NOTE | 2017-05-20 14:53 | ELECTROENCEPHALOGRAPH REPORT ---
REQUESTING PHYSICIAN: Dr. Gomez And Dr. Nolasco CLINICAL DIAGNOSIS: A 36-year-old man with known metastatic colon cancer, hyponatremia and a witnessed seizure. ELECTROENCEPHALOGRAM DIAGNOSIS: Essentially normal during wakefulness. DESCRIPTION OF TRACING: This EEG was done as a bedside recording and is of good technical quality with few or no muscle movement artifacts. Video analysis of patient movement and behavior was obtained. Photic stimulation and hyperventilation were not performed. Drowsiness and light sleep are not clearly recorded, although early in the tracing, the pattern looks very much like a very low-grade drowsy state for the first several minutes. Under these conditions, once the initial phase of the recording is completed and the electrode artifacts are adjusted. The tracing contains a normal background alpha rhythm of about 9-10 Hz of maximum frequency and 20-30 microvolts of maximum amplitude. This is maximum on posterior head regions, bilaterally symmetrical. Polymorphic mid frequency theta activity of modest voltage is seen over all head regions, maximum in the central regions in a symmetrical fashion. Anterior head region maximum bilaterally symmetrical low voltage fast activity in the beta range is present. At no time during the waking tracing is there evidence for potentially epileptogenic activity in the form of polyspike or spike wave bursts, focal sharp waves or focal spikes. INTERPRETATION: This EEG is essentially normal during wakefulness without evidence for focal or generalized encephalopathy and without evidence for potentially epileptogenic activity. The absence of the latter, however, does not exclude the diagnosis of seizure disorder.
--- NOTE | 2017-05-20 18:06 | Palliative Care Consultation ---
Consultation Date of Consultation: May 20, 2017. Requesting Physician: Dr Cabrales Attending Physician: Dr Cabrales Reason for Consultation: Assist with decision making History of Present Illness Pt is a 36 yo male, known to me from Palliative Clinic where I manage his pain medications. He has advanced metastatic colon cancer that progressed on chemo. His cancer has progressed rapidly over the past month or so. His pain has been controlled on methadone 10 mg BID with prn oxycodone or Tramadol. His girlfriend reported confusion on the evening of 05/18 prior to new onset seizure. Pt had a seizure at home, on in the ambulance and one in the ER. 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 pt alert on exam, but confused. Father, brother and girlfriend at bedside, spoke with pt's mother by phone. Family aware of poor prognosis and are amenable to having pt home with Hospice care one stabilized. Pt is receiving Dilaudid prn for pain - he has not been alert enough to take PO meds - requested methadone be given SL/buccal to prevent withdraw. Past Medical/Surgical History Medical History: Metastatic colon cancer - dx 2014 Surgical History: resection, port Family History + for colon cancer Social History Smoking Status: Never Smoker History of Alcohol Use: No Drug Use: none Marital Status: single, in relationship Housing Status: lives with significant other Occupation Status: employed Review of Systems Unable to obtain due to confusion Allergies Coded Allergies: No Known Allergies (Unverified , 01/03/17) Medications Current Inpatient Medications Medications (Trade) Dose Ordered Sig/Luis Manuel Route Start Time Stop Time Status Last Admin Dose Admin Lorazepam 1 mg/ Syringe 1 ml @ 0.5 mls/min UD PRN IV 05/19/17 03:15 06/18/17 03:14 Ioversol (Optiray 320) 125 ml UD PRN IV 05/19/17 03:15 05/23/17 03:14 Acetaminophen (Tylenol Tab) 650 mg Q4H PRN PO 05/19/17 03:15 06/18/17 03:14 Methadone HCl (Dolophine Tab) 10 mg BID PO 05/19/17 09:00 06/02/17 08:59 Oxycodone HCl (Roxicodone Immediate Rel Tab) 5 mg Q4H PRN PO 05/19/17 03:15 06/02/17 03:14 Prochlorperazine Edisylate 5 mg/ Syringe 5 ml @ 5 mls/min Q6H PRN IV 05/19/17 03:15 06/18/17 03:14 Hydromorphone HCl (Dilaudid Inj) 0.5 mg Q4H PRN IV 05/19/17 03:15 06/02/17 03:14 05/20/17 07:56 0.5 MG Ketorolac Tromethamine (Toradol Inj) 15 mg Q6H PRN IV. 05/19/17 03:15 05/24/17 03:14 05/20/17 10:05 15 MG Lorazepam (Ativan Inj) 1 mg Q5M PRN IV 05/19/17 04:45 06/18/17 04:44 05/20/17 07:56 1 MG Senna/Docusate Sodium (Senokot S Tab) 1 tab BID PO 05/19/17 09:00 06/18/17 08:59 Polyethylene (Miralax Powder Packet) 17 gm DAILY PRN PO 05/19/17 05:30 06/18/17 05:29 Lorazepam (Ativan Inj) 1 mg Q2H PRN IV 05/19/17 06:45 06/18/17 04:59 05/20/17 04:32 1 MG Gadobutrol (Gadavist) 6 mmol UD PRN IV 05/19/17 11:30 05/23/17 11:29 Ampicillin Sodium 2000 mg/Sodium Chloride 100 ml @ 200 mls/hr Q4H IV 05/19/17 17:00 05/29/17 16:59 05/20/17 16:53 200 MLS/HR Ceftriaxone Sodium 2000 mg/ Dextrose 70 ml @ 100 mls/hr Q12H IV 05/19/17 14:00 05/29/17 13:59 05/20/17 14:47 100 MLS/HR Vancomycin HCl 1000 mg/Sodium Chloride 270 ml @ 125 mls/hr Q12H IV 05/19/17 22:00 05/29/17 21:59 05/20/17 11:33 125 MLS/HR Miscellaneous Information (Consult) 1 ea UD PRN N/A 05/19/17 13:15 06/18/17 13:14 Acyclovir Sodium 500 mg/Dextrose 110 ml @ 110 mls/hr Q8H IV 05/19/17 14:00 05/29/17 13:59 05/20/17 14:47 110 MLS/HR Acetaminophen 650 mg/Empty Bag 65 ml @ 260 mls/hr Q6H PRN IV 05/19/17 16:00 06/18/17 15:59 05/19/17 16:50 260 MLS/HR Metoprolol Tartrate (Lopressor Iv) 2.5 mg Q4 PRN IV 05/19/17 18:15 06/18/17 18:14 Levetiracetam 500 mg/Dextrose 105 ml @ 420 mls/hr Q12H IV 05/19/17 21:00 06/18/17 20:59 05/20/17 07:56 420 MLS/HR Enalaprilat 1.25 mg/Dextrose 26 ml @ 100 mls/hr BID IV 05/20/17 21:00 06/19/17 20:59 Physical Exam Date Time Temp Pulse Resp B/P (MAP) Pulse Ox O2 Delivery O2 Flow Rate FiO2 05/20/17 15:34 36.8 123 20 153/99 (117) 98 Room Air 05/20/17 13:30 37.0 116 18 162/94 98 05/20/17 13:15 36.9 115 18 157/98 98 05/20/17 12:15 37.0 114 18 165/98 98 05/20/17 12:00 Room Air 05/20/17 11:15 36.7 114 20 /98 97 05/20/17 10:45 36.8 116 18 155/96 97 05/20/17 10:15 36.9 116 18 158/92 97 05/20/17 10:00 36.9 114 18 162/96 97 05/20/17 09:55 36.9 118 20 168/108 98 05/20/17 07:40 36.7 149 24 169/104 (125) 96 Room Air 05/20/17 04:00 37.3 126 16 97 Room Air 05/20/17 04:00 Room Air 05/19/17 23:59 Room Air 05/19/17 23:22 36.7 136 16 157/99 (118) 97 Room Air 05/19/17 20:00 Room Air 05/19/17 19:58 37.8 140 18 135/93 (107) 94 General Appearance: + mild distress Eyes: EOMI ENT: hearing grossly normal Neck: supple Respiratory: no respiratory distress Cardiovascular: regular rate, rhythm Abdomen: + mass (multiple palpable, minimal tenderness) Musculoskeletal: normal tone Neurologic/Psychiatric: + disoriented Skin: warm/dry, + pallor Laboratory Results Last 24 Hours Test 05/20/17 05:13 05/20/17 18:00 White Blood Count 11.14 K/uL Red Blood Count 3.44 M/uL Hemoglobin 7.7 g/dL Hematocrit 24.6 % Mean Corpuscular Volume 71.5 fL Mean Corpuscular Hemoglobin 22.4 pg Mean Corpuscular Hemoglobin Concent 31.3 g/dl Platelet Count 276 K/uL Mean Platelet Volume 8.1 fL Neutrophils (%) (Auto) 75.9 % Lymphocytes (%) (Auto) 13.7 % Monocytes (%) (Auto) 8.9 % Eosinophils (%) (Auto) 0.7 % Basophils (%) (Auto) 0.2 % Neutrophils # (Auto) 8.45 K/uL Lymphocytes # (Auto) 1.53 K/uL Monocytes # (Auto) 0.99 K/uL Eosinophils # (Auto) 0.08 K/uL Basophils # (Auto) 0.02 K/uL RDW Standard Deviation 43.3 fL RDW Coefficient of Variation 16.7 % Immature Granulocyte % (Auto) 0.6 % Immature Granulocyte # (Auto) 0.07 K/uL Polychromasia 1+ Hypochromasia PRESENT Microcytosis PRESENT Sodium Level 132 mmol/L Potassium Level 2.9 mmol/L Chloride Level 96 mmol/L Carbon Dioxide Level 26 mmol/L Anion Gap 10.0 mmol/L Blood Urea Nitrogen 15 mg/dl Creatinine 0.86 mg/dl Est Creatinine Clear Calc Drug Dose 112.8 ml/min Estimated GFR () 131.1 Estimated GFR (Non- 113.1 BUN/Creatinine Ratio 17.7 Random Glucose 98 mg/dl Calcium Level 8.2 mg/dl Total Bilirubin 0.5 mg/dl Aspartate Amino Transf (AST/SGOT) 22 U/L Alanine Aminotransferase (ALT/SGPT) 15 U/L Alkaline Phosphatase 96 U/L Total Protein 5.9 gm/dl Albumin 1.9 gm/dl Globulin 4.0 gm/dl Albumin/Globulin Ratio 0.5 Assessment & Plan Palliative Performance Scale: 40 % (1) History of colon cancer Status: Acute Assessment & Plan: Rapidly progressing (2) Lesion of peritoneum Status: Acute Assessment & Plan: increased # and size of masses (3) Abdominal pain Status: Chronic Assessment & Plan: Has been controlled on methadone - now on prn IV Dilaudid - will try to give methadone po or SL for pain control and to prevent withdraw (4) Seizure Status: Acute Assessment & Plan: new - 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
[2017-05-20] MEDS ORDERED: VANCOMYCIN TROUGH ONE (21:30)
[2017-05-20] MEDS: ENALAPRILAT IV 1.25 MG in DEXTROSE 5% 25ML 25 ML IV SCH (21:42)
[2017-05-21] MEDS: AMPICILLIN IV 2,000 MG in SODIUM CHLOR 0.9% AD-VAN 100ML 100 ML IV SCH ×3 (01:02→08:56)
[2017-05-21] MEDS: CEFTRIAXONE SOD INJ 2,000 MG in DEXTROSE 5% 50ML 50 ML IV SCH (01:44)
[2017-05-21] MEDS: LORAZEPAM 2 MG/ML 1 ML VIAL IV PRN (01:44)
[2017-05-21 03:57] VITALS: BP 146/91; PULSE 117; TEMP 36.8; O2SAT 98
[2017-05-21 05:49] LABS: BASO % 0.3 %; BASO ABS # 0.03 K/uL (0-0.2); EOS % 1.5 %; EOS ABS # 0.17 K/uL (0-0.5); HEMATOCRIT 30.7 % (42-52); HEMOGLOBIN 10.3 g/dL (14.0-18.0); IG# 0.09 K/uL (0.00-0.02); LYMPH % 9.6 %; LYMPH ABS # 1.11 K/uL (1.2-3.4); MEAN CELL VOLUME 74.7 fL (80-100); MEAN CORPUSCULAR HEMOGLOBIN 25.1 pg (25-34); MEAN CORPUSCULAR HGB CONC 33.6 g/dl (32-36); MEAN PLATELET VOLUME 8.2 fL (7.4-10.4); MONO % 6.4 %; MONO ABS # 0.74 K/uL (0.11-0.59); NEUT % 81.4 %; NEUT ABS # 9.37 K/uL (1.4-6.5); PLATELET COUNT 251 K/uL (130-400); RED CELL DISTRIBUTION WIDTH CV 17.5 % (11.5-14.5); RED CELL DISTRIBUTION WIDTH SD 47.6 fL (36.4-46.3); WHITE BLOOD COUNT 11.51 K/uL (4.8-10.8)
[2017-05-21 06:29] LABS: CREATININE 0.72 mg/dl (0.60-1.40)
[2017-05-21 07:30] VITALS: BP 151/98; PULSE 114; TEMP 36.6; O2SAT 98
[2017-05-21] MEDS: OXYCODONE HCL IR 5 MG TAB (IMMEDIATE RELEASE) PO PRN ×4 (07:34→22:29)
[2017-05-21] MEDS: DOCUSATE SODIUM/SENNA 50/8.6MG TAB PO SCH ×2 (07:35→20:33)
[2017-05-21] MEDS: ACYCLOVIR SOD INJ 500 MG in DEXTROSE 5% 100ML 100 ML IV SCH (07:35)
[2017-05-21] MEDS: METHADONE HCL 10 MG TAB PO SCH ×2 (08:56→20:32)
[2017-05-21] MEDS ORDERED: VANCOMYCIN TROUGH ONE (09:30)
[2017-05-21] MEDS: LEVETIRACETAM IV 500 MG in DEXTROSE 5% 100ML 100 ML IV SCH ×2 (09:35→20:32)
[2017-05-21] MEDS: ENALAPRILAT IV 1.25 MG in DEXTROSE 5% 25ML 25 ML IV SCH ×2 (09:57→20:33)
[2017-05-21] MEDS: VANCOMYCIN INJ 1,000 MG in SODIUM CHLORIDE 0.9% 250ML 250 ML IV SCH (10:14)
[2017-05-21 11:03] VITALS: BP 151/98; PULSE 114; TEMP 36.6; O2SAT 98
[2017-05-21] MEDS: POTASSIUM CHLR 10 MEQ / WTR 10 MEQ in PREMIXED WATER 100 ML IV SCH ×2 (11:10→12:27)
--- NOTE | 2017-05-21 11:13 | Medical Consult ---
Consultation Date of Consultation: May 21, 2017. Attending Physician: Abhishek Echevarria M.D. Reason for Consultation: Possible meningitis History of Present Illness 36-year-old male with known colon cancer since 2014, recently diagnosed with widely metastatic disease, awaiting further decision regarding additional chemotherapy. Patient reportedly developed headache, some confusion, with nausea and vomiting several days prior to admission. Then suffered what was said to be grand mal seizure and brought to the emergency room for further management. 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 Admission CT scan of the head unremarkable. Has undergone lumbar puncture with finding of no significant pleocytosis, cultures are negative. Patient was started empirically on broad-spectrum antibiotics with vancomycin, ceftriaxone, ampicillin, and acyclovir. CT scan of the abdomen shows widely metastatic disease. Past Medical/Surgical History Medical Problems: (1) Abdominal pain Status: Acute (2) Anemia Status: Acute (3) Hypochloremia Status: Acute (4) Lesion of peritoneum Status: Acute (5) Seizure Status: Acute Medical Problems: (1) Abdominal pain (2) Asthma (3) Colon cancer (4) Hyponatremia Surgical Problems: (1) S/P partial resection of colon Family History Cancer Social History Smoking Status: Never Smoker Drug Use: none Marital Status: single, in relationship Housing Status: lives alone Occupation Status: employed Allergies Coded Allergies: No Known Allergies (Unverified , 01/03/17) Current Inpatient Medications Current Inpatient Medications Medications (Trade) Dose Ordered Sig/Luis Manuel Route Start Time Stop Time Status Last Admin Dose Admin Lorazepam 1 mg/ Syringe 1 ml @ 0.5 mls/min UD PRN IV 05/19/17 03:15 06/18/17 03:14 Ioversol (Optiray 320) 125 ml UD PRN IV 05/19/17 03:15 05/23/17 03:14 Acetaminophen (Tylenol Tab) 650 mg Q4H PRN PO 05/19/17 03:15 06/18/17 03:14 Methadone HCl (Dolophine Tab) 10 mg BID PO 05/19/17 09:00 06/02/17 08:59 05/21/17 08:56 10 MG Oxycodone HCl (Roxicodone Immediate Rel Tab) 5 mg Q4H PRN PO 05/19/17 03:15 06/02/17 03:14 05/21/17 07:34 5 MG Prochlorperazine Edisylate 5 mg/ Syringe 5 ml @ 5 mls/min Q6H PRN IV 05/19/17 03:15 06/18/17 03:14 Hydromorphone HCl (Dilaudid Inj) 0.5 mg Q4H PRN IV 05/19/17 03:15 06/02/17 03:14 05/20/17 07:56 0.5 MG Ketorolac Tromethamine (Toradol Inj) 15 mg Q6H PRN IV. 05/19/17 03:15 05/24/17 03:14 05/20/17 10:05 15 MG Lorazepam (Ativan Inj) 1 mg Q5M PRN IV 05/19/17 04:45 06/18/17 04:44 05/21/17 01:44 1 MG Senna/Docusate Sodium (Senokot S Tab) 1 tab BID PO 05/19/17 09:00 06/18/17 08:59 05/20/17 20:44 1 TAB Polyethylene (Miralax Powder Packet) 17 gm DAILY PRN PO 05/19/17 05:30 06/18/17 05:29 Lorazepam (Ativan Inj) 1 mg Q2H PRN IV 05/19/17 06:45 06/18/17 04:59 05/20/17 22:24 1 MG Gadobutrol (Gadavist) 6 mmol UD PRN IV 05/19/17 11:30 05/23/17 11:29 Ampicillin Sodium 2000 mg/Sodium Chloride 100 ml @ 200 mls/hr Q4H IV 05/19/17 17:00 05/29/17 16:59 05/21/17 08:56 200 MLS/HR Ceftriaxone Sodium 2000 mg/ Dextrose 70 ml @ 100 mls/hr Q12H IV 05/19/17 14:00 05/29/17 13:59 05/21/17 01:44 100 MLS/HR Vancomycin HCl 1000 mg/Sodium Chloride 270 ml @ 125 mls/hr Q12H IV 05/19/17 22:00 05/29/17 21:59 05/21/17 10:14 125 MLS/HR Miscellaneous Information (Consult) 1 ea UD PRN N/A 05/19/17 13:15 06/18/17 13:14 Acyclovir Sodium 500 mg/Dextrose 110 ml @ 110 mls/hr Q8H IV 05/19/17 14:00 05/29/17 13:59 05/21/17 07:35 110 MLS/HR Acetaminophen 650 mg/Empty Bag 65 ml @ 260 mls/hr Q6H PRN IV 05/19/17 16:00 06/18/17 15:59 05/19/17 16:50 260 MLS/HR Metoprolol Tartrate (Lopressor Iv) 2.5 mg Q4 PRN IV 05/19/17 18:15 06/18/17 18:14 Levetiracetam 500 mg/Dextrose 105 ml @ 420 mls/hr Q12H IV 05/19/17 21:00 06/18/17 20:59 05/21/17 09:35 420 MLS/HR Enalaprilat 1.25 mg/Dextrose 26 ml @ 100 mls/hr BID IV 05/20/17 21:00 06/19/17 20:59 05/21/17 09:57 100 MLS/HR Ondansetron HCl (Zofran Inj) 4 mg Q4H PRN IV 05/21/17 10:30 06/20/17 10:29 Potassium Chloride 10 meq/ Prmx 100 ml @ 100 mls/hr Q1H IV 05/21/17 11:00 05/21/17 12:59 Review of Systems Not obtainable because of patient's mental status Physical Exam Date Time Temp Pulse Resp B/P (MAP) Pulse Ox O2 Delivery O2 Flow Rate FiO2 05/21/17 11:03 36.6 114 19 98 05/21/17 08:00 Room Air 05/21/17 07:30 36.6 114 20 151/98 (115) 98 Room Air 05/21/17 04:00 Room Air 05/21/17 03:57 36.8 117 21 146/91 (109) 98 Room Air 05/21/17 00:00 Room Air 05/20/17 23:48 37.1 124 18 154/70 (98) 99 Room Air 05/20/17 20:33 36.8 120 20 159/97 05/20/17 20:00 Room Air 05/20/17 19:33 37.5 121 16 154/105 98 05/20/17 19:10 121 162/110 3/5/18 18:33 37.3 123 153/94 05/20/17 18:15 36.9 127 164/89 05/20/17 18:05 36.5 128 22 168/104 99 05/20/17 16:00 98 Room Air 05/20/17 15:34 36.8 123 20 153/99 (117) 98 Room Air 05/20/17 13:30 37.0 116 18 162/94 98 05/20/17 13:15 36.9 115 18 157/98 98 05/20/17 12:15 37.0 114 18 165/98 98 05/20/17 12:00 Room Air 05/20/17 11:15 36.7 114 20 /98 97 General Appearance: no apparent distress, + pertinent finding (Chronically ill- appearing) Head: normocephalic, atraumatic Eyes: normal inspection, EOMI, sclerae normal ENT: normal ENT inspection, pharynx normal Neck: supple, no adenopathy, thyroid normal, trachea midline Respiratory/Chest: chest non-tender, lungs clear, normal breath sounds, no respiratory distress Cardiovascular: regular rate, rhythm, no gallop, no murmur Abdomen/GI: normal bowel sounds, soft, no organomegaly, + tenderness Back: normal inspection, no CVA tenderness Extremities/Musculoskelatal: no calf tenderness, non-tender Neurologic/Psych: + disoriented, + pertinent finding (Sleepy) Skin: normal color, warm/dry, no rash Lymphatic: no adenopathy Laboratory Results RUN DATE: 05/21/17 [facility] LAB PAGE 1 RUN TIME: 819 Specimen Inquiry PATIENT: NATASHA ZARCO LOC: [place] U # : [id number] AGE/SX: 36/M ROOM: [facility] REG : 05/19/[address]: Arin Cabrales M.D. : 1980 BED: 1 DIS : STATUS: ADM IN TLOC: SPEC #: [id number] LUIS MIGUEL: 05/19/17 STATUS: COMP REQ #: [id number] RECD: 05/19/[address]: Faith Nolasco M.D. SOURCE: CSF ENTR: 05/19/17-[address]: Arin Cabrales M.D. SPDESC: Kristen Allen MD Oconer, Joseph N., M.D. Rozick, Mark S., M.D. ORDERED: CSF CULT/SMR COMMENTS: Comments to Linoleum Layer Apprentice Tube #2 TUBE # TO USE FOR SPINAL FLUID CELL CULTURE= 2 Procedure Result Verified Site GRAM STAIN Final 05/19/17-1440 RESULT NO WBCs SEEN NO ORGANISMS SEEN CSF CULTURE Final 05/21/17-0820 NO GROWTH Last 24 Hours Test 05/20/17 18:13 05/21/17 05:20 05/21/17 09:26 Sodium Level 129 mmol/L White Blood Count 11.51 K/uL Red Blood Count 4.11 M/uL Hemoglobin 10.3 g/dL Hematocrit 30.7 % Mean Corpuscular Volume 74.7 fL Mean Corpuscular Hemoglobin 25.1 pg Mean Corpuscular Hemoglobin Concent 33.6 g/dl Platelet Count 251 K/uL Mean Platelet Volume 8.2 fL Neutrophils (%) (Auto) 81.4 % Lymphocytes (%) (Auto) 9.6 % Monocytes (%) (Auto) 6.4 % Eosinophils (%) (Auto) 1.5 % Basophils (%) (Auto) 0.3 % Neutrophils # (Auto) 9.37 K/uL Lymphocytes # (Auto) 1.11 K/uL Monocytes # (Auto) 0.74 K/uL Eosinophils # (Auto) 0.17 K/uL Basophils # (Auto) 0.03 K/uL RDW Standard Deviation 47.6 fL RDW Coefficient of Variation 17.5 % Immature Granulocyte % (Auto) 0.8 % Immature Granulocyte # (Auto) 0.09 K/uL Creatinine 0.72 mg/dl Est Creatinine Clear Calc Drug Dose 139.2 ml/min Estimated GFR () 141.1 Estimated GFR (Non- 121.7 Vancomycin Level Trough 13.7 mcg/ml Patient Name: NATASHA ZARCO Unit Number: [id number] Dictated: 05/19/17747 Transcribed: 05/19/17747 EV Printed Date/Time: [~ rep prt dt]/[~ rep prt tm] [~ rep ct labl] - [~ rep ct ivnm] [facility] [place] [address] Dictated: 05/19/17747 Transcribed: 05/19/17747 EV Printed Date/Time: [~ rep prt dt]/[~ rep prt tm] [~ rep ct labl] - [~ rep ct ivnm] [~ rep ct add3]] CT SCAN OF THE ABDOMEN AND PELVIS WITH IV CONTRAST CLINICAL HISTORY: Generalized abdominal pain. Nausea and vomiting. Colon cancer. COMPARISON STUDY: Prior abdominal CT scans, most recently dated 01/03/2017. TECHNIQUE: Following the IV administration of 94 cc of Optiray 320, CT scan of the abdomen and pelvis is performed from the lung bases to the proximal femora. Images are reviewed in the axial, sagittal, and coronal planes. IV contrast was administered without complication. The examination is degraded by streak artifact from the patient's arms which could not be elevated above the chest as well as by motion. A dose lowering protocol was utilized adhering to the principles of ALARA. FINDINGS: Lung bases: The heart is normal in size and without pericardial effusion. The lung bases are clear. Liver: The contrast-enhanced liver is normal in size, contour, and attenuation. There is central intrahepatic biliary ductal dilatation. The hepatic veins and portal veins are patent. Numerous small lymph nodes are present along the surface of the liver. A low-attenuation lesion in the inferior right lobe of liver seen on image #95 and measures 2.5 cm. Gallbladder: The gallbladder is grossly unremarkable. Spleen: The spleen is mildly enlarged, measuring 13.7 cm in length. Pancreas: Unremarkable. Adrenal glands: Unremarkable. Kidneys: The contrast enhanced kidneys are normal in size. There is mild right-sided hydronephrosis. There is heterogeneously diminished perfusion of the right kidney as compared to the left. Abdominal vasculature: The abdominal aorta is normal in course and caliber. Bowel: No bowel obstruction is seen. There is mild colonic fecal retention. The appendix is well-visualized and normal. Peritoneum: There is nonspecific gas and fluid present in the gallbladder fossa between the gallbladder and the liver. This is best seen on image #88. Findings of diffuse peritoneal carcinomatosis has significantly progressed as compared to 01/03/2017. A large implant is now seen anterior to the left lobe of liver on image #77. This measures up to 4.1 cm. A lesion in the ventral abdominal wall on image #178 measures 4.5 cm (previously measured 1.7 cm). A large low-attenuation lesion in the left lower quadrant on image #252 measures up to 5.8 cm. A large heterogeneous is centered in the right abdominal wall on image #240. Lymphadenopathy: Retroperitoneal lymphadenopathy and pelvic sidewall lymphadenopathy has significantly progressed. Pelvic viscera: The bladder, prostate, and seminal vesicles are normal as imaged. Skeletal structures: No lytic or blastic lesions are seen. There is a left-sided pars defect at L5. IMPRESSION: 1. Significantly streak and motion compromised examination. 2. Overall marked progression of peritoneal metastatic disease as compared to 01/03/2017. There is now evidence of hepatic metastatic disease, as well as retroperitoneal and pelvic sidewall adenopathy. 3. There is diffuse hypoperfusion of the right kidney with mild right hydronephrosis. This is likely related to an obstructing lesion along the distal right ureter although this is difficult to assess. 4. There is gas and fluid identified in the gallbladder fossa between the gallbladder and the liver. This is of indeterminant significance and may resent a necrotic implant or less likely an intervening loop of bowel. Abscess would be impossible to exclude. Clinical correlation will be essential. Consider ultrasound for further assessment if there is strong clinical concern for abscess. 5. Additional findings as above. Electronically signed by: Rayo Lopez M.D. 05/19/2017 8:00 AM Dictated Date/Time: 05/19/2017 7:48 AM The status of this report is Signed. Draft = Not yet reviewed or approved by Radiologist. Signed = Reviewed and approved by Radiologist. <AttendingPhy>Arin Cabrales M.D.</AttendingPhy> <FamilyPhy>Stephen Martinez M.D.</FamilyPhy> <PrimaryPhy>Stephen Martinez M.D.</PrimaryPhy> <UnitNumber> [id number]</UnitNumber> <VisitNumber>[id number]</VisitNumber> <PatientName> NATASHA ZARCO</PatientName> <DateOfBirth>1980</DateOfBirth> <Location> C.[facility]T</Location> <ServiceDate>05/19/17</ServiceDate> <MNE>ESINDI</MNE> < OrderingPhy>Adan Gomez M.D.</OrderingPhy> <OrderingPhyMNE>f rep ord dr lundy </OrderingPhyMNE> <DictatingPhyMNE>f rep dict dr lundy</DictatingPhyMNE> < CCListMNE>f rep ct mne</CCListMNE> <AdmittingPhyMNE>f pt admit dr lundy</ AdmittingPhyMNE> <AttendingPhyMNE>f pt attend dr lundy</AttendingPhyMNE> <ConsultingPhyMNE>f pt consult dr lundy</ConsultingPhyMNE> <FamilyPhyMNE>f pt fam dr lundy</FamilyPhyMNE> <OtherPhyMNE>f pt other dr lundy</OtherPhyMNE> < PrimaryPhyMNE>f pt prim care dr lundy</PrimaryPhyMNE> <ReferringPhyMNE>f pt referring dr lundy</ReferringPhyMNE> Assessment & Plan 36-year-old male with widely metastatic colon cancer admitted with seizure, with no evidence of REFINERY OPERATOR infection based on CSF findings and culture results. I would favor discontinuation of antibiotics. Will discuss with all involved.
[2017-05-21 11:54] VITALS: BP 154/97; PULSE 116; TEMP 37.3; O2SAT 99
[2017-05-21 12:23] VITALS: BP 159/99; PULSE 120; TEMP 37; O2SAT 96
--- NOTE | 2017-05-21 13:25 | Progress Note ---
Internal Med Progress Note Date of Service: May 21, 2017. Provider Documentation: SUBJECTIVE: The patient was seen and examined Moderate distress at rest Will not wear Monitor Complains of nausea OBJECTIVE: Vital Signs-as noted below Exam: General-Moderate distress at rets Eyes-normal ENT-normal Neck-supple Lungs-clear to auscultate bilaterally Heart-regular,no murmur appreciated Abdomen-Soft.lumpy and tender to palpate all over4 Extremities-Trace edema bilaterally Neuro-AA Generally weak and lethargic Lab data as noted below. ASSESSMENT & PLAN: New onset seizures H/O Metastatic Colon Cancer No evidence of intracranial mets /Leptomeningitis CT head showed no hemorrhage, mass effect, or evidence of acute territorial ischemia MRI head showed leptomeningeal thickening and enhancement seen within the right temporal and occipital lobes. 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 Received loading dose of Keppra Continue on keppra PO Neurology on board -appreciate input LP was done with no complication-no meningitis Started on on empirical abx with Ampicillin, Rocephin, Vanco, and Acyclovir adding Oncology Consulted-appreciate input Will get an EEG-no seizure activity Continue seizure precaution Suspected Meningitis-Ruled out LP -no evidence of Bacterial Meningitis and no evidence leptomeningeal infiltration Started on on empirical abx with Ampicillin, Rocephin, Vanco, and Acyclovir adding Will discontinue Antibiotics Colorectal cancer status-diagnosed in 2014 post surgery and chemotherapy. CT abd/pelvis showed marked progression of peritoneal metastatic disease as compared to 01/03/2017. There is now evidence of hepatic metastatic disease, as well as retroperitoneal and pelvic sidewall adenopathy. Very Poor prognosis Oncology consulted Palliative care consulted Elevated BP Will add low dose of IV enalapril to control BP Continue monitor BP Anemia Hgb dropped to 7.7 Will transfuse 2 units PRBC No signs of active bleeding Monitor CBC Tachycardia Possible related to Low hgb and low platelet Transfuse 2 units PRBC Continue monitor in tele Electrolytes Imbalance Likely secondary to poor intake Will supplement and recheck DVT px on SCDs (recent LP) CODE STATUS ::DNR Discussed with the Sister Vital Signs: Date Time Temp Pulse Resp B/P (MAP) Pulse Ox O2 Delivery O2 Flow Rate FiO2 05/21/17 12:23 37.0 120 16 159/99 (119) 96 Room Air 3/6/18 11:54 37.3 116 22 154/97 (116) 99 Room Air 05/21/17 11:03 36.6 114 19 98 05/21/17 08:00 Room Air 05/21/17 07:30 36.6 114 20 151/98 (115) 98 Room Air 05/21/17 04:00 Room Air 05/21/17 03:57 36.8 117 21 146/91 (109) 98 Room Air 05/21/17 00:00 Room Air 05/20/17 23:48 37.1 124 18 154/70 (98) 99 Room Air 05/20/17 20:33 36.8 120 20 159/97 05/20/17 20:00 Room Air 05/20/17 19:33 37.5 121 16 154/105 98 05/20/17 19:10 121 162/110 05/20/17 18:33 37.3 123 153/94 05/20/17 18:15 36.9 127 164/89 05/20/17 18:05 36.5 128 22 168/104 99 05/20/17 16:00 98 Room Air 05/20/17 15:34 36.8 123 20 153/99 (117) 98 Room Air 05/20/17 13:30 37.0 116 18 162/94 98 Lab Results: Results Past 24 Hours Test 05/20/17 18:13 05/21/17 05:20 05/21/17 09:26 Range/Units Sodium Level 129 136-145 mmol/L White Blood Count 11.51 4.8-10.8 K/uL Red Blood Count 4.11 4.7-6.1 M/uL Hemoglobin 10.3 14.0-18.0 g/dL Hematocrit 30.7 42-52 % Mean Corpuscular Volume 74.7 80-100 fL Mean Corpuscular Hemoglobin 25.1 25-34 pg Mean Corpuscular Hemoglobin Concent 33.6 32-36 g/dl Platelet Count 251 130-400 K/uL Mean Platelet Volume 8.2 7.4-10.4 fL Neutrophils (%) (Auto) 81.4 % Lymphocytes (%) (Auto) 9.6 % Monocytes (%) (Auto) 6.4 % Eosinophils (%) (Auto) 1.5 % Basophils (%) (Auto) 0.3 % Neutrophils # (Auto) 9.37 1.4-6.5 K/uL Lymphocytes # (Auto) 1.11 1.2-3.4 K/uL Monocytes # (Auto) 0.74 0.11-0.59 K/uL Eosinophils # (Auto) 0.17 0-0.5 K/uL Basophils # (Auto) 0.03 0-0.2 K/uL RDW Standard Deviation 47.6 36.4-46.3 fL RDW Coefficient of Variation 17.5 11.5-14.5 % Immature Granulocyte % (Auto) 0.8 % Immature Granulocyte # (Auto) 0.09 0.00-0.02 K/uL Creatinine 0.72 0.60-1.40 mg/dl Est Creatinine Clear Calc Drug Dose 139.2 ml/min Estimated GFR () 141.1 Estimated GFR (Non- 121.7 Vancomycin Level Trough 13.7 SEE COMMENT mcg/ml
--- NOTE | 2017-05-21 13:42 | Hematology/Oncology Prog Note ---
Hematology/Onc Progress Note Date of Service May 21, 2017. Diagnoses Refractory metastatic colon carcinoma Seizure rule out leptomeningeal disease Medications Medications Administered Medications (Trade) Dose Ordered Sig/Luis Manuel Route Start Time Stop Time Status Last Admin Dose Admin Sodium Chloride 1,000 ml @ 999 mls/hr Q1H1M STAT IV 05/19/17 00:15 05/19/17 01:15 DC 05/19/17 00:59 999 MLS/HR Potassium Chloride (Kcl 10 Meq / Wtr) 10 meq NOW STAT IV 05/19/17 02:41 05/19/17 02:43 DC 05/19/17 03:09 10 MEQ Levetiracetam 1000 mg/Dextrose 110 ml @ 440 mls/hr ONE STAT IV 05/19/17 03:12 05/19/17 03:26 DC 05/19/17 03:20 440 MLS/HR Lorazepam (Ativan Inj) 2 mg STK-MED ONCE .ROUTE 05/19/17 03:11 05/19/17 03:12 DC 05/19/17 03:11 2 MG Potassium Chloride 10 meq/ Prmx 100 ml @ 100 mls/hr Q1H IV 05/19/17 04:30 05/19/17 07:29 DC 05/19/17 07:28 100 MLS/HR Methadone HCl (Dolophine Tab) 10 mg BID PO 05/19/17 09:00 06/02/17 08:59 05/21/17 08:56 10 MG Oxycodone HCl (Roxicodone Immediate Rel Tab) 5 mg Q4H PRN PO 05/19/17 03:15 06/02/17 03:14 05/21/17 07:34 5 MG Hydromorphone HCl (Dilaudid Inj) 0.5 mg Q4H PRN IV 05/19/17 03:15 06/02/17 03:14 05/20/17 07:56 0.5 MG Ketorolac Tromethamine (Toradol Inj) 15 mg Q6H PRN IV. 05/19/17 03:15 05/24/17 03:14 05/20/17 10:05 15 MG Lorazepam (Ativan Inj) 1 mg Q5M PRN IV 05/19/17 04:45 06/18/17 04:44 05/21/17 01:44 1 MG Metoprolol Tartrate (Lopressor Iv) 2.5 mg NOW STAT IV 05/19/17 04:42 05/19/17 04:52 DC 05/19/17 05:14 2.5 MG Potassium Chloride/Sodium Chloride 1,000 ml @ 100 mls/hr Q10H ONCE IV 05/19/17 05:00 05/19/17 14:59 DC 05/19/17 05:13 100 MLS/HR Lorazepam (Ativan Inj) 0.5 mg Q4H PRN IV 05/19/17 05:00 05/19/17 06:35 DC 05/19/17 05:15 0.5 MG Hydromorphone HCl (Dilaudid Inj) 0.25 mg 0455 ONCE IV 05/19/17 04:55 05/19/17 05:08 DC 05/19/17 05:13 0.25 MG Senna/Docusate Sodium (Senokot S Tab) 1 tab BID PO 05/19/17 09:00 06/18/17 08:59 05/20/17 20:44 1 TAB Lorazepam (Ativan Inj) 1 mg Q2H PRN IV 05/19/17 06:45 06/18/17 04:59 05/20/17 22:24 1 MG Olanzapine (Zyprexa Inj) 2.5 mg NOW STAT IM 05/19/17 06:33 05/19/17 06:41 DC 05/19/17 07:26 2.5 MG Metoprolol Tartrate (Lopressor Iv) 5 mg NOW STAT IV 05/19/17 06:33 05/19/17 06:41 DC 05/19/17 06:49 5 MG Lorazepam (Ativan Inj) 1 mg NOW ONCE IV 05/19/17 11:30 05/19/17 11:31 DC 05/19/17 10:30 1 MG Ampicillin Sodium 2000 mg/Sodium Chloride 100 ml @ 200 mls/hr Q4H IV 05/19/17 17:00 05/29/17 16:59 05/21/17 08:56 200 MLS/HR Ceftriaxone Sodium 2000 mg/ Dextrose 70 ml @ 100 mls/hr Q12H IV 05/19/17 14:00 05/29/17 13:59 05/21/17 01:44 100 MLS/HR Vancomycin HCl 1000 mg/Sodium Chloride 270 ml @ 125 mls/hr Q12H IV 05/19/17 22:00 05/29/17 21:59 05/21/17 10:14 125 MLS/HR Acyclovir Sodium 500 mg/Dextrose 110 ml @ 110 mls/hr Q8H IV 05/19/17 14:00 05/29/17 13:59 05/21/17 07:35 110 MLS/HR Vancomycin HCl 1500 mg/Sodium Chloride 530 ml @ 200 mls/hr TODAY@1500 IV 05/19/17 15:00 05/20/17 10:05 DC 05/19/17 15:36 200 MLS/HR Acetaminophen 650 mg/Empty Bag 65 ml @ 260 mls/hr Q6H PRN IV 05/19/17 16:00 06/18/17 15:59 05/19/17 16:50 260 MLS/HR Levetiracetam 500 mg/Dextrose 105 ml @ 420 mls/hr Q12H IV 05/19/17 21:00 06/18/17 20:59 05/21/17 09:35 420 MLS/HR Potassium Chloride 10 meq/ Prmx 100 ml @ 100 mls/hr Q1H IV 05/20/17 07:45 05/20/17 11:44 DC 05/20/17 15:32 100 MLS/HR Enalaprilat 1.25 mg/Dextrose 26 ml @ 100 mls/hr BID IV 05/20/17 21:00 06/19/17 20:59 05/21/17 09:57 100 MLS/HR Potassium Chloride 10 meq/ Prmx 100 ml @ 100 mls/hr Q1H IV 05/21/17 11:00 05/21/17 12:59 DC 05/21/17 12:27 100 MLS/HR Subjective Today is my first day of seeing Mr. Roberts but from the prior notes he is much more alert he is oriented 2-3 today. Pain seems fairly well controlled. Family was with him at bedside today. Review of Systems: Constitutional: Negative for night sweats, or fever. His family states that for the past few weeks has been spending most of his day in his favorite chair or bed Eyes: Negative for event change of vision ENT: Negative for epistaxis, nasal discharge, sore throat, or deafness Cardiovascular: Negative for chest pain, palpitations, dizziness, diaphoresis Respiratory: Negative for new shortness of breath,hemoptysis, or purulent cough Gastrointestinal: Negative for diarrhea, hematemesis, melena, nausea, vomiting , or dyspepsia Integumentary (skin): Negative for rash or jaundice discoloration Genitourinary: Negative for urinary frequency, hematuria, or dysuria Neurological: Negative for weakness, headache, or dizziness Lymphatic/Hematologic: Negative for petechiae, bleeding or new adenopathy Musculoskeletal: Negative for new joint or back pain Allergic/Immunologic: Negative for unusual rash or pruritis. Vital Signs Vital Signs Past 12 Hours Date Time Temp Pulse Resp B/P (MAP) Pulse Ox O2 Delivery O2 Flow Rate FiO2 05/21/17 12:23 37.0 120 16 159/99 (119) 96 Room Air 05/21/17 11:54 37.3 116 22 154/97 (116) 99 Room Air 05/21/17 11:03 36.6 114 19 98 05/21/17 08:00 Room Air 05/21/17 07:30 36.6 114 20 151/98 (115) 98 Room Air 05/21/17 04:00 Room Air 05/21/17 03:57 36.8 117 21 146/91 (109) 98 Room Air Physical Exam Constitutional: vitals are stable. Performance status easily graded a 3-4 ECOG Eyes: Eyes are SUKHWINDER EOMI without conjuctival erythema or icterus. He has lost a considerable amount of weight ENT: External examination was negative for masses. Neck: Negative for masses or palpable thyromegaly Respiratory: Lung sounds were generally clear bilaterally Cardiovascular: Heart was RRR without significant murmur, gallops aoe rubs Gastrointestinal: Palpable masses in the midepigastric area Lymphatic system: there was no palpable peripheral lymphadenopathy Musculoskeletal System: The musculoskeletal system seemed concordant with age. Skin: The skin was negative for jaundice. Neurologic exam: The exam was negative for any focal findings. Deep tendon reflexes were equal and symmetrical. He is oriented times at least 2 Psychiatric exam: Was essentially negative with normal mood and effect. Extremities: Negative for edema erythema Laboratory Last 24 Hours Test 05/20/17 18:13 05/21/17 05:20 05/21/17 09:26 Sodium Level 129 mmol/L White Blood Count 11.51 K/uL Red Blood Count 4.11 M/uL Hemoglobin 10.3 g/dL Hematocrit 30.7 % Mean Corpuscular Volume 74.7 fL Mean Corpuscular Hemoglobin 25.1 pg Mean Corpuscular Hemoglobin Concent 33.6 g/dl Platelet Count 251 K/uL Mean Platelet Volume 8.2 fL Neutrophils (%) (Auto) 81.4 % Lymphocytes (%) (Auto) 9.6 % Monocytes (%) (Auto) 6.4 % Eosinophils (%) (Auto) 1.5 % Basophils (%) (Auto) 0.3 % Neutrophils # (Auto) 9.37 K/uL Lymphocytes # (Auto) 1.11 K/uL Monocytes # (Auto) 0.74 K/uL Eosinophils # (Auto) 0.17 K/uL Basophils # (Auto) 0.03 K/uL RDW Standard Deviation 47.6 fL RDW Coefficient of Variation 17.5 % Immature Granulocyte % (Auto) 0.8 % Immature Granulocyte # (Auto) 0.09 K/uL Creatinine 0.72 mg/dl Est Creatinine Clear Calc Drug Dose 139.2 ml/min Estimated GFR () 141.1 Estimated GFR (Non- 121.7 Vancomycin Level Trough 13.7 mcg/ml Assessment & Plan Metastatic colon carcinoma. I reviewed abdominal CT scan as well as the brain MRI. 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 Clearly the abdominal disease has progressed. His performance status is very poor. I reviewed with the patient today that we really do not have therapeutic systemic options at this juncture. I do suspect that the changes seen on the head MRI are responsible for the witnessed seizure activity over the weekend. His family also reviews with me that for several days leading up to the seizure activity he had been more confused. I believe it would be warranted to at least get an opinion from radiation therapy concerning the possibility of some sort of focal radiation to that area seen on head MRI. Neurology has been involved. I did have a very dillon discussion with the patient as well as his mother and sister today. The girlfriend Tamie was also in the room. I reviewed with him the unfortunate reality that we really do not have any predictably good systemic therapies to offer. I do not plan to pursue BOAT CREW DECK HAND defect with another cytology or the possibility of intrathecal therapy. I would suggest at this juncture hospice [facility] and supportive care going forward. I reviewed what "hospice" is to the patient as well as the family and all are agreed. I did also review the family's wishes then to have hospice with the customer logistics manager. The family asked how long he may live. 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 Again this was reviewed with the family and patient.
--- NOTE | 2017-05-21 14:36 | Neurology Progress Notes ---
Neurology Progress Note Date of Service May 21, 2017. Subjective Fabiola is a 36 year old male who has a PMH of metastatic colon cancer status post surgery in 2014 s/p chemotherapy, OCD as per records, chronic pain on narcotics, chronic anemia, (baseline hemoglobin of 10 in April 2017), asthma , chronic hyponatremia. He [place] [facility] [place] and was last seen 04/2017 , there was a delay in treatment due to insurance issues. He has ongoing abdominal pain and he was told he had progression of his CA. He was referred to [facility] for experimental trial but he was not able to travel. Today he is sitting up in bed and alert. Family in room and states he has improved since yesterday. He has eaten part of a sandwich and some fluids. discussed plan to repeat MRI to evaluate if changes seen previously are resolving. They are also questioning the repeat LP. They discussed this with oncology MD and he states the LP is not necessary from his standpoint because it will not change treatment. Chi states he is having abdominal pain but no current headache. Objective Date Time Temp Pulse Resp B/P (MAP) Pulse Ox O2 Delivery O2 Flow Rate FiO2 05/21/17 12:23 37.0 120 16 159/99 (119) 96 Room Air 05/21/17 11:54 37.3 116 22 154/97 (116) 99 Room Air 05/21/17 11:03 36.6 114 19 98 05/21/17 08:00 Room Air 05/21/17 07:30 36.6 114 20 151/98 (115) 98 Room Air 05/21/17 04:00 Room Air 05/21/17 03:57 36.8 117 21 146/91 (109) 98 Room Air 05/21/17 00:00 Room Air 05/20/17 23:48 37.1 124 18 154/70 (98) 99 Room Air 05/20/17 20:33 36.8 120 20 159/97 05/20/17 20:00 Room Air 05/20/17 19:33 37.5 121 16 154/105 98 05/20/17 19:10 121 162/110 05/20/17 18:33 37.3 123 153/94 05/20/17 18:15 36.9 127 164/89 05/20/17 18:05 36.5 128 22 168/104 99 05/20/17 16:00 98 Room Air 05/20/17 15:34 36.8 123 20 153/99 (117) 98 Room Air Last 24 Hours Test 05/20/17 18:13 05/21/17 05:20 05/21/17 09:26 Sodium Level 129 mmol/L White Blood Count 11.51 K/uL Red Blood Count 4.11 M/uL Hemoglobin 10.3 g/dL Hematocrit 30.7 % Mean Corpuscular Volume 74.7 fL Mean Corpuscular Hemoglobin 25.1 pg Mean Corpuscular Hemoglobin Concent 33.6 g/dl Platelet Count 251 K/uL Mean Platelet Volume 8.2 fL Neutrophils (%) (Auto) 81.4 % Lymphocytes (%) (Auto) 9.6 % Monocytes (%) (Auto) 6.4 % Eosinophils (%) (Auto) 1.5 % Basophils (%) (Auto) 0.3 % Neutrophils # (Auto) 9.37 K/uL Lymphocytes # (Auto) 1.11 K/uL Monocytes # (Auto) 0.74 K/uL Eosinophils # (Auto) 0.17 K/uL Basophils # (Auto) 0.03 K/uL RDW Standard Deviation 47.6 fL RDW Coefficient of Variation 17.5 % Immature Granulocyte % (Auto) 0.8 % Immature Granulocyte # (Auto) 0.09 K/uL Creatinine 0.72 mg/dl Est Creatinine Clear Calc Drug Dose 139.2 ml/min Estimated GFR () 141.1 Estimated GFR (Non- 121.7 Vancomycin Level Trough 13.7 mcg/ml Imaging: no new imaging Exam: Physical Exam: Constitutional: appearance ill appearing Ears, Nose, Mouth and Throat: mucous membranes moist, no injection and skin normal, eyes normal Cardiovascular: normal S-1 and S-2 and regular rate and rhythm Respiratory: course breath sounds Musculoskeletal: no peripheral edema and good distal pulses Skin: no stigmata of neurocutaneous disease noted and normal and intact Eyes: extraocular muscles intact (EOMI) and pupils equal, round and reactive to light (PERRL) NEUROLOGIC EXAMINATION: Mental status: Alert and interactive Oriented states he is in [place] but sister states this is him joking. Knows all the ppl and names in the room. Oriented to person Speech fluent with no evidence of aphasia Cranial Nerves face is symmetric Gait/Stance: Posture lying in bed easily repositions himself Strength: generalize weakness Current Inpatient Medications Medications (Trade) Dose Ordered Sig/Luis Manuel Route Start Time Stop Time Status Last Admin Dose Admin Lorazepam 1 mg/ Syringe 1 ml @ 0.5 mls/min UD PRN IV 05/19/17 03:15 06/18/17 03:14 Ioversol (Optiray 320) 125 ml UD PRN IV 05/19/17 03:15 05/23/17 03:14 Acetaminophen (Tylenol Tab) 650 mg Q4H PRN PO 05/19/17 03:15 06/18/17 03:14 Methadone HCl (Dolophine Tab) 10 mg BID PO 05/19/17 09:00 06/02/17 08:59 05/21/17 08:56 10 MG Oxycodone HCl (Roxicodone Immediate Rel Tab) 5 mg Q4H PRN PO 05/19/17 03:15 06/02/17 03:14 05/21/17 07:34 5 MG Prochlorperazine Edisylate 5 mg/ Syringe 5 ml @ 5 mls/min Q6H PRN IV 05/19/17 03:15 06/18/17 03:14 Hydromorphone HCl (Dilaudid Inj) 0.5 mg Q4H PRN IV 05/19/17 03:15 06/02/17 03:14 05/20/17 07:56 0.5 MG Ketorolac Tromethamine (Toradol Inj) 15 mg Q6H PRN IV. 05/19/17 03:15 05/24/17 03:14 05/20/17 10:05 15 MG Lorazepam (Ativan Inj) 1 mg Q5M PRN IV 05/19/17 04:45 06/18/17 04:44 05/21/17 01:44 1 MG Senna/Docusate Sodium (Senokot S Tab) 1 tab BID PO 05/19/17 09:00 06/18/17 08:59 05/20/17 20:44 1 TAB Polyethylene (Miralax Powder Packet) 17 gm DAILY PRN PO 05/19/17 05:30 06/18/17 05:29 Lorazepam (Ativan Inj) 1 mg Q2H PRN IV 05/19/17 06:45 06/18/17 04:59 05/20/17 22:24 1 MG Gadobutrol (Gadavist) 6 mmol UD PRN IV 05/19/17 11:30 05/23/17 11:29 Acetaminophen 650 mg/Empty Bag 65 ml @ 260 mls/hr Q6H PRN IV 05/19/17 16:00 06/18/17 15:59 05/19/17 16:50 260 MLS/HR Metoprolol Tartrate (Lopressor Iv) 2.5 mg Q4 PRN IV 05/19/17 18:15 06/18/17 18:14 Levetiracetam 500 mg/Dextrose 105 ml @ 420 mls/hr Q12H IV 05/19/17 21:00 06/18/17 20:59 05/21/17 09:35 420 MLS/HR Enalaprilat 1.25 mg/Dextrose 26 ml @ 100 mls/hr BID IV 05/20/17 21:00 06/19/17 20:59 05/21/17 09:57 100 MLS/HR Ondansetron HCl (Zofran Inj) 4 mg Q4H PRN IV 05/21/17 10:30 06/20/17 10:29 Impression 36 year old with metastatic colon CA s/p surgery 2015 and chemotherapy with new onset seizure Plan 1. study from Eur J Radiol 2013 Nov;82 (11):1964-72. doi 10.1016/ [email or web address]. Epub 2013 Rajiv 17. 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 Study describes abnormalities on MRI that are reversible and should have repeat imaging in approximately 7days. 2. continue Keppra 500 mg BID due to witnessed seizure activity 3. would avoid sudden withdrawal of ativan and use of Ultram which can lower seizure threshold 4. oncology Dr Huber no plans for intra thecal chemo according to his note. discussed hospice care with patient and likely 3-6 months as an estimate for his life expectancy. 5. ID - antibiotic stopped 6. continue to follow for cytology 7. repeat MRI with and without contrast to evaluate for resolve of changes in brain findings. if there is no plans for further treatment of the cancer may not be necessary to have repeat MRI 8. PT/OT for discharge needs 9. cytology preliminary findings no abnormalities 10. pain mgt per primary team 11. hospice care to be involved in discharge. I have seen and discussed above patient with Dr Faith Nolasco, neurology PT seen and examined, improved mentation no headache. Oncology and Radiation onc notes reviewed. At this point rec no additional work-up. 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 I understand that pt does not want additional tx for carcinomatous meningitis, if it were to be present. I would dc pt on keppra 500 mg twice a day. Provided no sz he does not need lab monitoring. It is available in an elixir and in a disintegrating soluble tablet. Dr Felix also mentioned buccal ativan if necessary. If the pt has recurrent episodes I would recommend and increase in dose of keppra.. If the med is not tolerated or is making the pt irritable Dr Huber can contact our office for further advice. We do not need to see him in follow-up to minimize his appointments. Will sign off, BEBETO Nolasco MD
--- NOTE | 2017-05-21 15:15 | Radiation Oncology Consult ---
Radiation Oncology Consult Date / Reason May 21, 2017. Dr. Hbuer has been kind enough to ask us to see as patient Mr. Roberts for evaluation discussion of the potential role of palliative brain radiation. 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 Roberts is an unfortunate 36-year-old male who was initially diagnosed with a carcinoma of the colon. 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 Patient was treated with FOLFOX chemotherapy and completed in August 2015. Patient subsequently developed evidence of mesenteric metastatic disease and was placed on Lonsurf until recently. Reimaging studies performed recently included a CT scan of the abdomen and pelvis performed on May 19, 2017. This showed clear evidence of progressive mesenteric and hepatic metastatic disease. This study was compared to a prior study from January 03, 2017. In addition patient underwent an MRI of the brain on May 19 which showed large and extensive foci of FLAIR signal abnormalities involving predominantly the subcortical white matter with greatest involvement in the temporal, parietal and occipital lobes. There was associated leptomeningeal thickening and enhancement seen within the right temporal and occipital lobes. Faint left meningeal enhancement also seen in the left temporal lobe. 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 Foci of signal abnormality were seen within the left thalamus and left periventricular white matter without associated abnormal enhancement. There was no hemorrhage, midline shift or restricted diffusion typical for acute ischemia. Patient is being medicated with methadone and oxycodone or tramadol with adequate pain control. However this past weekend the patient experienced a seizure at home and an ambulance was called to bring him to the hospital. While in the ambulance he apparently had a second but less severe seizure. This prompted the head CT scan on May 19 which was unremarkable and the above- mentioned MRI of the brain. A lumbar puncture was performed on May 20, 2017. Cerebral spinal fluid was checked and no malignant cells were noted. Since that time patient has been seen by Dr. Felix for palliative consultation with recommendation of hospice. The patient was also seen by Dr. Huber who has been treating him since the inception. At this point he felt that there was no role for further systemic chemotherapy. He also felt that if there was leptomeningeal disease that the potential use of intrathecal chemotherapy with not likely be of any benefit. He did ask whether there was any role for palliative radiation. It is for this reason that the patient was seen in referral today. Past History Past Medical/Surgical History: Asthma, Anxiety, Reflux, Cancer, Depression Chemotherapy History Agents Used: FOLFOX chemotherapy completing in August [address] Huber Social History Smoking Status: Never Smoker Hx Tobacco Use In Past Year?: No (stopped four years ago) Do You Dip or Chew Tobacco: No (stopped four years ago) Hx Alcohol Use: No Allergies Coded Allergies: No Known Allergies (Unverified , 01/03/17) Home Medications Scheduled Dronabinol (Marinol), 5 MG PO TID Ibuprofen (Motrin), 600 MG PO DAILY Methadone Hcl (Dolophine), 10 MG PO BID Scheduled PRN Lorazepam (Ativan), 1 MG PO TID PRN for Anxiety Oxycodone Ir (Roxicodone Ir), 5 MG PO Q4H PRN for Severe Pain Tramadol (Ultram), 50 MG PO BID PRN for Pain Review of Systems Ear/Hearing: Ear Side: Bilateral Hearing Ability: Normal Hearing Aid: None Edema: Present?: No Location Body Site Modifier: Bilateral Physical Exam Height: 5 (Feet) 10.00 (Inches) 177.8 (Centimeters) 1.7780 (Meters) Weight: 150 (Pounds) 2.1 (Ounces) 68.100 (Kilograms) 23030.000 (Grams) Date Time Temp Pulse Resp B/P (MAP) Pulse Ox O2 Delivery O2 Flow Rate FiO2 05/21/17 12:23 37.0 120 16 159/99 (119) 96 Room Air 05/21/17 11:54 37.3 116 22 154/97 (116) 99 Room Air 05/21/17 11:03 36.6 114 19 98 05/21/17 08:00 Room Air 05/21/17 07:30 36.6 114 20 151/98 (115) 98 Room Air 05/21/17 04:00 Room Air 05/21/17 03:57 36.8 117 21 146/91 (109) 98 Room Air 05/21/17 00:00 Room Air 05/20/17 23:48 37.1 124 18 154/70 (98) 99 Room Air 05/20/17 20:33 36.8 120 20 159/97 05/20/17 20:00 Room Air 05/20/17 19:33 37.5 121 16 154/105 98 05/20/17 19:10 121 162/110 05/20/17 18:33 37.3 123 153/94 05/20/17 18:15 36.9 127 164/89 05/20/17 18:05 36.5 128 22 168/104 99 05/20/17 16:00 98 Room Air 05/20/17 15:34 36.8 123 20 153/99 (117) 98 Room Air Pain Management Patient Reports Pain: No Side: Mid Pain Location: Abdomen Patient Preferred Pain Scale: 0 - 10 Initial Pain Intensity: 7.0 Level of Consciousness: Spontaneously Alert Relief Measures: Medication - Oral Pain Medication Comment: no s/s of pain Pain Intervention: See [facility] Pain Management Plan The patient is under the care of a pain specialist and his pain is being monitored while in the hospital. He is having no pain related to his MRI findings and therefore there is no role for palliative radiation for pain control. Laboratory Laboratory Results: were reviewed, and pertinent findings noted in [facility] Pathology Pathology Results: were reviewed, and pertinent findings noted in [facility] Pathology Comments April 10, 2016. Peritoneal fluid was taken. FINAL DIAGNOSIS PERITONEAL FLUID, WASHINGS: 1. MALIGNANT CELLS PRESENT CONSISTENT WITH METASTATIC ADENOCARCINOMA. 2. SEE COMMENT. May 20 2017 cerebrospinal fluid was taken via lumbar puncture. FINAL DIAGNOSIS CEREBROSPINAL FLUID, LUMBAR PUNCTURE: 1. RED BLOOD CELLS, NEUTROPHILS, AND MONOCYTES. 2. NO MALIGNANT CELLS SEEN. Imaging Imaging Studies: were reviewed, and pertinent findings noted in [facility] Imaging Comments MRI of brain dated May 19, 2017. IMPRESSION: 1. There are large and extensive foci of FLAIR signal abnormality seen involving predominantly the subcortical white matter, and greatest involving the temporal, parietal, and occipital lobes. 2. There is associated leptomeningeal thickening and enhancement seen within the right temporal and occipital lobes. Faint left meningeal enhancement is also seen in the left temporal lobe region. 3. 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 Infectious meningitis could also have this appearance. Less likely, a viral encephalitis is within the differential. 4. Foci of signal abnormality are also seen within the left thalamus and the left periventricular white matter. There is no associated abnormal enhancement. No enhancing parenchymal lesion is identified. 5. There is no hemorrhage, midline shift, or restricted diffusion typical for acute ischemia. CT scan of the abdomen and pelvis dated May 19, 2017. 1. Significantly streak and motion compromised examination. 2. Overall marked progression of peritoneal metastatic disease as compared to 01/03/2017. There is now evidence of hepatic metastatic disease, as well as retroperitoneal and pelvic sidewall adenopathy. 3. There is diffuse hypoperfusion of the right kidney with mild right hydronephrosis. This is likely related to an obstructing lesion along the distal right ureter although this is difficult to assess. 4. There is gas and fluid identified in the gallbladder fossa between the gallbladder and the liver. This is of indeterminant significance and may resent a necrotic implant or less likely an intervening loop of bowel. Abscess would be impossible to exclude. Clinical correlation will be essential. Consider ultrasound for further assessment if there is strong clinical concern for abscess. 5. Additional findings as above. Treatment Options I discussed the following treatment options with the patient's family. 1. No radiation treatment at this time. 2. Pending review of repeat MRI of the brain we discussed the possibility of a short course of palliative whole brain radiation delivered over 5 fractions. Total Time In Consultation In summary Mr. Roberts is an unfortunate 36-year-old male who was diagnosed in December 2014 with a locally advanced signet ring carcinoma of the sigmoid colon. He underwent a laparotomy with a stage of T3 N2b with 8 of 16 nodes positive. He was treated with FOLFOX chemotherapy completing in August 2015. Subsequent study showed evidence of local recurrence in the peritoneal cavity and liver. Additional chemotherapy has been given without benefit. More recently the patient developed a seizure while at home with the second in the ambulance. CT scan of the abdomen and pelvis show progression of abdominal and hepatic disease compared to previous studies from December 2016. MRI of the brain showed changes that could be leptomeningeal disease. With medication he has had no repeat in his seizure activity. I reviewed his imaging with radiology. I met with the patient in his room. Unfortunately because of pain medication he slept through the majority of the discussion. It was accompanied by his father, sister and girlfriend. We discussed at length the potential use of palliative radiation. I reviewed with them in detail the findings and interpretation of the recent MRI. I also reviewed with them the potential role of palliative radiation. I told them that at best it could delay the progression of the leptomeningeal disease if in fact this is present. I did not think it would provide a major or significant benefit in his quality of life as he is having no significant symptomatology related to his [employer] at this time. At their request I reviewed the anticipated duration of treatment which would consist of 5 fractions and reviewed the potential risks both short-term and medium-term. I elicited from them the patient's expressed thoughts on aggressiveness of care. The consensus was that the patient wants to go home. Neurology raised the question of a repeat MRI this . I told him that if he was to have a repeat MRI I would review this with radiology and discussed the changes if any with them to see if it would impact the decision on whether to treat or not. At this time the consensus was that there would be no significant benefit from a course of palliative radiation due to lack of local symptoms. If that situation were to change we could readdress the issue. If the MRI would show significant changes we could also readdress whether or not to proceed with a course of palliative radiation. Thank you for allowing us to participate in the care of this patient. This chart was completed in part utilizing [employer] Speech Voice Recognition software. Attempts were made to minimize the grammatical errors, random word insertions, pronoun errors and incomplete sentences. Any formal questions or concerns about the content, text or information contained within the body of this dictation should be directly addressed to the provider for clarification. Wili Hansen MD Department of Radiation Oncology [facility] and [facility]
[2017-05-21 15:29] VITALS: BP 156/96; PULSE 120; TEMP 37; O2SAT 96
[2017-05-21] MEDS: HYDROmorphone INJ 0.5 MG/0.5 ML SYR IV PRN ×2 (16:35→20:32)
--- NOTE | 2017-05-21 17:23 | Palliative Care Progress Note ---
Palliative Care Progress Note Date of Service May 21, 2017. Subjective Pt evaluation today including: conversation w/ family, physical exam, chart review, review of studies Pain: controlled PO Intake: poor Voiding: no voiding problems Review of Systems Unable to obtain pt not awake Objective Vital Signs Date Time Temp Pulse Resp B/P (MAP) Pulse Ox O2 Delivery O2 Flow Rate FiO2 05/21/17 15:29 37.0 120 16 156/96 (116) 96 05/21/17 12:23 37.0 120 16 159/99 (119) 96 Room Air 05/21/17 11:54 37.3 116 22 154/97 (116) 99 Room Air 05/21/17 11:03 36.6 114 19 98 05/21/17 08:00 Room Air 05/21/17 07:30 36.6 114 20 151/98 (115) 98 Room Air 05/21/17 04:00 Room Air 05/21/17 03:57 36.8 117 21 146/91 (109) 98 Room Air 05/21/17 00:00 Room Air 05/20/17 23:48 37.1 124 18 154/70 (98) 99 Room Air 05/20/17 20:33 36.8 120 20 159/97 05/20/17 20:00 Room Air 05/20/17 19:33 37.5 121 16 154/105 98 05/20/17 19:10 121 162/110 05/20/17 18:33 37.3 123 153/94 05/20/17 18:15 36.9 127 164/89 05/20/17 18:05 36.5 128 22 168/104 99 Physical Exam General Appearance: no apparent distress Respiratory/Chest: no respiratory distress Cardiovascular: regular rate, rhythm Abdomen: + distended Extremities: no pedal edema Neurologic/Psychiatric: + pertinent finding (asleep) Skin: normal color Laboratory Results Last 24 Hours Test 05/20/17 18:13 05/21/17 05:20 05/21/17 09:26 Sodium Level 129 mmol/L White Blood Count 11.51 K/uL Red Blood Count 4.11 M/uL Hemoglobin 10.3 g/dL Hematocrit 30.7 % Mean Corpuscular Volume 74.7 fL Mean Corpuscular Hemoglobin 25.1 pg Mean Corpuscular Hemoglobin Concent 33.6 g/dl Platelet Count 251 K/uL Mean Platelet Volume 8.2 fL Neutrophils (%) (Auto) 81.4 % Lymphocytes (%) (Auto) 9.6 % Monocytes (%) (Auto) 6.4 % Eosinophils (%) (Auto) 1.5 % Basophils (%) (Auto) 0.3 % Neutrophils # (Auto) 9.37 K/uL Lymphocytes # (Auto) 1.11 K/uL Monocytes # (Auto) 0.74 K/uL Eosinophils # (Auto) 0.17 K/uL Basophils # (Auto) 0.03 K/uL RDW Standard Deviation 47.6 fL RDW Coefficient of Variation 17.5 % Immature Granulocyte % (Auto) 0.8 % Immature Granulocyte # (Auto) 0.09 K/uL Creatinine 0.72 mg/dl Est Creatinine Clear Calc Drug Dose 139.2 ml/min Estimated GFR () 141.1 Estimated GFR (Non- 121.7 Vancomycin Level Trough 13.7 mcg/ml Assessment and Plan (1) History of colon cancer Status: Chronic Assessment & Plan: Pt with disease progression on chemo - no further treatment offered (2) Lesion of peritoneum Status: Acute Assessment & Plan: Masses are increasing in size (3) Abdominal pain Status: Chronic Assessment & Plan: Neoplasm related pain, controlled with methadone and prn Roxanol - would titrate Roxanol to comfort and d/c IV Dilaudid in anticipation of transfer home on Hospice (4) Seizure Status: Acute Assessment & Plan: 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
[2017-05-21] MEDS: KETOROLAC TROMETHAMINE 15 MG/ML VIAL IV. PRN (17:55)
[2017-05-22] VITALS (7 sets, daily range): BP systolic 130–161; BP diastolic 69–109; PULSE 92–127; TEMP 36.4–37.5; O2SAT 95–97
[2017-05-22] MEDS: HYDROmorphone INJ 0.5 MG/0.5 ML SYR IV PRN ×3 (00:43→09:31)
[2017-05-22] MEDS: OXYCODONE HCL IR 5 MG TAB (IMMEDIATE RELEASE) PO PRN ×9 (03:03→22:41)
[2017-05-22] MEDS ORDERED: ALBUTEROL HFA 8 GM INHALER INH PRN (06:00)
[2017-05-22 06:18] LABS: BASO % 0.3 %; BASO ABS # 0.03 K/uL (0-0.2); EOS % 3.8 %; EOS ABS # 0.38 K/uL (0-0.5); HEMATOCRIT 29.3 % (42-52); HEMOGLOBIN 9.7 g/dL (14.0-18.0); IG# 0.12 K/uL (0.00-0.02); LYMPH % 10.9 %; LYMPH ABS # 1.09 K/uL (1.2-3.4); MEAN CELL VOLUME 74.6 fL (80-100); MEAN CORPUSCULAR HEMOGLOBIN 24.7 pg (25-34); MEAN CORPUSCULAR HGB CONC 33.1 g/dl (32-36); MEAN PLATELET VOLUME 8.4 fL (7.4-10.4); MONO % 8.1 %; MONO ABS # 0.81 K/uL (0.11-0.59); NEUT % 75.7 %; NEUT ABS # 7.61 K/uL (1.4-6.5); PLATELET COUNT 260 K/uL (130-400); RED CELL DISTRIBUTION WIDTH CV 17.9 % (11.5-14.5); RED CELL DISTRIBUTION WIDTH SD 48.7 fL (36.4-46.3); WHITE BLOOD COUNT 10.04 K/uL (4.8-10.8)
[2017-05-22 07:00] LABS: CREATININE 0.64 mg/dl (0.60-1.40)
[2017-05-22] MEDS: DOCUSATE SODIUM/SENNA 50/8.6MG TAB PO SCH ×2 (07:27→20:00)
[2017-05-22] MEDS: METHADONE HCL 10 MG TAB PO SCH ×2 (07:28→20:40)
[2017-05-22 08:00] LABS: CALCIUM 7.8 mg/dl (8.5-10.1); CREATININE 0.67 mg/dl (0.60-1.40); POTASSIUM 3.4 mmol/L (3.5-5.1)
[2017-05-22] MEDS: ONDANSETRON INJ 2 MG/ML 2 ML VIAL IV PRN ×2 (08:05→17:46)
[2017-05-22] MEDS: ENALAPRILAT IV 1.25 MG in DEXTROSE 5% 25ML 25 ML IV SCH ×2 (08:09→20:39)
[2017-05-22] MEDS: LEVETIRACETAM IV 500 MG in DEXTROSE 5% 100ML 100 ML IV SCH ×2 (08:50→21:14)
[2017-05-22] MEDS: POTASSIUM CHLORIDE 10 MEQ TABCR PO STA ×2 (11:36→17:16)
--- NOTE | 2017-05-22 12:36 | Hematology/Oncology Prog Note ---
Hematology/Onc Progress Note Date of Service May 22, 2017. Diagnoses Refractory metastatic colon carcinoma Seizure rule out leptomeningeal disease Medications Medications Administered Medications (Trade) Dose Ordered Sig/Luis Manuel Route Start Time Stop Time Status Last Admin Dose Admin Sodium Chloride 1,000 ml @ 999 mls/hr Q1H1M STAT IV 05/19/17 00:15 05/19/17 01:15 DC 05/19/17 00:59 999 MLS/HR Potassium Chloride (Kcl 10 Meq / Wtr) 10 meq NOW STAT IV 05/19/17 02:41 05/19/17 02:43 DC 05/19/17 03:09 10 MEQ Levetiracetam 1000 mg/Dextrose 110 ml @ 440 mls/hr ONE STAT IV 05/19/17 03:12 05/19/17 03:26 DC 05/19/17 03:20 440 MLS/HR Lorazepam (Ativan Inj) 2 mg STK-MED ONCE .ROUTE 05/19/17 03:11 05/19/17 03:12 DC 05/19/17 03:11 2 MG Potassium Chloride 10 meq/ Prmx 100 ml @ 100 mls/hr Q1H IV 05/19/17 04:30 05/19/17 07:29 DC 05/19/17 07:28 100 MLS/HR Methadone HCl (Dolophine Tab) 10 mg BID PO 05/19/17 09:00 06/02/17 08:59 05/22/17 07:28 10 MG Oxycodone HCl (Roxicodone Immediate Rel Tab) 5 mg Q4H PRN PO 05/19/17 03:15 05/21/17 18:17 DC 05/21/17 14:48 5 MG Hydromorphone HCl (Dilaudid Inj) 0.5 mg Q4H PRN IV 05/19/17 03:15 05/22/17 10:30 DC 05/22/17 09:31 0.5 MG Ketorolac Tromethamine (Toradol Inj) 15 mg Q6H PRN IV. 05/19/17 03:15 05/24/17 03:14 05/21/17 17:55 15 MG Lorazepam (Ativan Inj) 1 mg Q5M PRN IV 05/19/17 04:45 06/18/17 04:44 05/21/17 01:44 1 MG Metoprolol Tartrate (Lopressor Iv) 2.5 mg NOW STAT IV 05/19/17 04:42 05/19/17 04:52 DC 05/19/17 05:14 2.5 MG Potassium Chloride/Sodium Chloride 1,000 ml @ 100 mls/hr Q10H ONCE IV 05/19/17 05:00 05/19/17 14:59 DC 05/19/17 05:13 100 MLS/HR Lorazepam (Ativan Inj) 0.5 mg Q4H PRN IV 05/19/17 05:00 05/19/17 06:35 DC 05/19/17 05:15 0.5 MG Hydromorphone HCl (Dilaudid Inj) 0.25 mg 0455 ONCE IV 05/19/17 04:55 05/19/17 05:08 DC 05/19/17 05:13 0.25 MG Senna/Docusate Sodium (Senokot S Tab) 1 tab BID PO 05/19/17 09:00 06/18/17 08:59 05/22/17 07:27 1 TAB Lorazepam (Ativan Inj) 1 mg Q2H PRN IV 05/19/17 06:45 06/18/17 04:59 05/20/17 22:24 1 MG Olanzapine (Zyprexa Inj) 2.5 mg NOW STAT IM 05/19/17 06:33 05/19/17 06:41 DC 05/19/17 07:26 2.5 MG Metoprolol Tartrate (Lopressor Iv) 5 mg NOW STAT IV 05/19/17 06:33 05/19/17 06:41 DC 05/19/17 06:49 5 MG Lorazepam (Ativan Inj) 1 mg NOW ONCE IV 05/19/17 11:30 05/19/17 11:31 DC 05/19/17 10:30 1 MG Ampicillin Sodium 2000 mg/Sodium Chloride 100 ml @ 200 mls/hr Q4H IV 05/19/17 17:00 05/21/17 13:46 DC 05/21/17 08:56 200 MLS/HR Ceftriaxone Sodium 2000 mg/ Dextrose 70 ml @ 100 mls/hr Q12H IV 05/19/17 14:00 05/21/17 13:46 DC 05/21/17 01:44 100 MLS/HR Vancomycin HCl 1000 mg/Sodium Chloride 270 ml @ 125 mls/hr Q12H IV 05/19/17 22:00 05/21/17 13:47 DC 05/21/17 10:14 125 MLS/HR Acyclovir Sodium 500 mg/Dextrose 110 ml @ 110 mls/hr Q8H IV 05/19/17 14:00 05/21/17 13:47 DC 05/21/17 07:35 110 MLS/HR Vancomycin HCl 1500 mg/Sodium Chloride 530 ml @ 200 mls/hr TODAY@1500 IV 05/19/17 15:00 05/20/17 10:05 DC 05/19/17 15:36 200 MLS/HR Acetaminophen 650 mg/Empty Bag 65 ml @ 260 mls/hr Q6H PRN IV 05/19/17 16:00 06/18/17 15:59 05/19/17 16:50 260 MLS/HR Levetiracetam 500 mg/Dextrose 105 ml @ 420 mls/hr Q12H IV 05/19/17 21:00 06/18/17 20:59 05/22/17 08:50 420 MLS/HR Potassium Chloride 10 meq/ Prmx 100 ml @ 100 mls/hr Q1H IV 05/20/17 07:45 05/20/17 11:44 DC 05/20/17 15:32 100 MLS/HR Enalaprilat 1.25 mg/Dextrose 26 ml @ 100 mls/hr BID IV 05/20/17 21:00 06/19/17 20:59 05/22/17 08:09 100 MLS/HR Ondansetron HCl (Zofran Inj) 4 mg Q4H PRN IV 05/21/17 10:30 06/20/17 10:29 05/22/17 08:05 4 MG Potassium Chloride 10 meq/ Prmx 100 ml @ 100 mls/hr Q1H IV 05/21/17 11:00 05/21/17 12:59 DC 05/21/17 12:27 100 MLS/HR Oxycodone HCl (Roxicodone Immediate Rel Tab) 10 mg Q4H PRN PO 05/21/17 18:30 05/22/17 10:30 DC 05/22/17 07:32 10 MG Albuterol (Ventolin Hfa Inhaler) 2 puffs Q6H PRN INH 05/22/17 06:00 06/21/17 05:59 05/22/17 06:18 2 PUFFS Oxycodone HCl (Roxicodone Immediate Rel Tab) 10 mg Q2H PRN PO 05/22/17 10:30 06/02/17 03:14 05/22/17 10:41 10 MG Potassium Chloride (Klor-Con M10) 40 meq NOW STAT PO 05/22/17 10:29 05/22/17 10:38 DC 05/22/17 11:36 40 MEQ Subjective Continues to be alert. No further seizure activity. Complains of back pain and some abdominal pain. Review of Systems: Constitutional: Negative for night sweats, or fever Eyes: Negative for event change of vision ENT: Negative for epistaxis, nasal discharge, sore throat, or deafness Cardiovascular: Negative for chest pain, palpitations, dizziness, diaphoresis Respiratory: Negative for new shortness of breath,hemoptysis, or purulent cough Gastrointestinal: Negative for diarrhea, hematemesis, melena, nausea, vomiting , or dyspepsia Integumentary (skin): Negative for rash or jaundice discoloration Neurological: Negative for weakness, seizure activity, headache, or dizziness Lymphatic/Hematologic: Negative for petechiae, bleeding or new adenopathy Musculoskeletal: Negative for new joint or back pain Allergic/Immunologic: Negative for unusual rash or pruritis. Vital Signs Vital Signs Past 12 Hours Date Time Temp Pulse Resp B/P (MAP) Pulse Ox O2 Delivery O2 Flow Rate FiO2 05/22/17 11:16 36.9 110 18 153/108 (123) 96 05/22/17 08:00 Room Air 05/22/17 07:42 36.7 127 18 161/108 (125) 96 Room Air 05/22/17 04:22 36.8 122 22 152/97 (115) 96 Room Air 05/22/17 00:35 Room Air Physical Exam Constitutional: vitals are stable. Eyes: Eyes are SUKHWINDER EOMI without conjuctival erythema or icterus. ENT: External examination was negative for masses. Neck: Negative for masses or palpable thyromegaly Respiratory: Lung sounds were generally clear bilaterally Cardiovascular: Heart was RRR without significant murmur, gallops aoe rubs Gastrointestinal: As before palpable - subcutaneous nodules Lymphatic system: there was no palpable peripheral lymphadenopathy Musculoskeletal System: The musculoskeletal system seemed concordant with age. Skin: The skin was negative for jaundice. Neurologic exam: The exam was negative for any focal findings. Deep tendon reflexes were equal and symmetrical. Psychiatric exam: Was essentially negative with normal mood and effect. Extremities: negative for edema Laboratory Last 24 Hours Test 05/22/17 06:01 White Blood Count 10.04 K/uL Red Blood Count 3.93 M/uL Hemoglobin 9.7 g/dL Hematocrit 29.3 % Mean Corpuscular Volume 74.6 fL Mean Corpuscular Hemoglobin 24.7 pg Mean Corpuscular Hemoglobin Concent 33.1 g/dl Platelet Count 260 K/uL Mean Platelet Volume 8.4 fL Neutrophils (%) (Auto) 75.7 % Lymphocytes (%) (Auto) 10.9 % Monocytes (%) (Auto) 8.1 % Eosinophils (%) (Auto) 3.8 % Basophils (%) (Auto) 0.3 % Neutrophils # (Auto) 7.61 K/uL Lymphocytes # (Auto) 1.09 K/uL Monocytes # (Auto) 0.81 K/uL Eosinophils # (Auto) 0.38 K/uL Basophils # (Auto) 0.03 K/uL RDW Standard Deviation 48.7 fL RDW Coefficient of Variation 17.9 % Immature Granulocyte % (Auto) 1.2 % Immature Granulocyte # (Auto) 0.12 K/uL Sodium Level 130 mmol/L Potassium Level 3.4 mmol/L Chloride Level 95 mmol/L Carbon Dioxide Level 24 mmol/L Anion Gap 10.0 mmol/L Blood Urea Nitrogen 16 mg/dl Creatinine 0.67 mg/dl Est Creatinine Clear Calc Drug Dose 149.2 ml/min Estimated GFR () 145.3 Estimated GFR (Non- 125.4 BUN/Creatinine Ratio 24.0 Random Glucose 96 mg/dl Calcium Level 7.8 mg/dl Magnesium Level 1.6 mg/dl Assessment & Plan Metastatic colon carcinoma. Currently to be placed on hospice. I asked the patient today if he had any further questions and he did not. He wanted to know about the pain in his abdomen and I stated this is from his cancer and that his pain regimen would have to be modified to help him with his pain. Dr. Felix is involved and I appreciate her help with helping in his pain control.
[2017-05-22] MEDS: HYDROmorphone INJ 1 MG/ML SYR IV PRN ×4 (13:29→22:36)
--- NOTE | 2017-05-22 13:50 | Progress Note ---
Internal Med Progress Note Date of Service: May 22, 2017. Provider Documentation: SUBJECTIVE: The patient was seen and examined Moderate distress at rest Will not wear Monitor Complains of nausea Pains is not controlled yet Will increase the pain medications doses and frequency OBJECTIVE: Vital Signs-as noted below Exam: General-Moderate distress at rets Eyes-normal ENT-normal Neck-supple Lungs-clear to auscultate bilaterally Heart-regular,no murmur appreciated Abdomen-Soft.lumpy and tender to palpate all over4 Extremities-Trace edema bilaterally Neuro-AA Generally weak and lethargic Lab data as noted below. ASSESSMENT & PLAN: Abdominal Pain Secondary to metastatic disease Will increase pain medications as per recommendation from Palliative care Discussed with the family members Likely discharge home/facility with Hospice care New onset seizures H/O Metastatic Colon Cancer No evidence of intracranial mets /Leptomeningitis CT head showed no hemorrhage, mass effect, or evidence of acute territorial ischemia MRI head showed leptomeningeal thickening and enhancement seen within the right temporal and occipital lobes. 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 Received loading dose of Keppra Continue on keppra PO Neurology on board -appreciate input LP was done with no complication-no meningitis Started on on empirical abx with Ampicillin, Rocephin, Vanco, and Acyclovir adding Oncology Consulted-appreciate input Will get an EEG-no seizure activity Continue seizure precaution Suspected Meningitis-Ruled out LP -no evidence of Bacterial Meningitis and no evidence leptomeningeal infiltration Started on on empirical abx with Ampicillin, Rocephin, Vanco, and Acyclovir adding Will discontinue Antibiotics Colorectal cancer status-diagnosed in 2014 post surgery and chemotherapy. CT abd/pelvis showed marked progression of peritoneal metastatic disease as compared to 01/03/2017. There is now evidence of hepatic metastatic disease, as well as retroperitoneal and pelvic sidewall adenopathy. Very Poor prognosis Oncology consulted Palliative care consulted Elevated BP Will add low dose of IV enalapril to control BP Continue monitor BP Anemia Hgb dropped to 7.7 Will transfuse 2 units PRBC No signs of active bleeding Monitor CBC Tachycardia Possible related to Low hgb and low platelet Transfuse 2 units PRBC Continue monitor in tele Electrolytes Imbalance Likely secondary to poor intake Will supplement and recheck DVT px on SCDs (recent LP) CODE STATUS ::DNR Discussed with the Sister Vital Signs: Date Time Temp Pulse Resp B/P (MAP) Pulse Ox O2 Delivery O2 Flow Rate FiO2 05/22/17 11:16 36.9 110 18 153/108 (123) 96 05/22/17 08:00 Room Air 05/22/17 07:42 36.7 127 18 161/108 (125) 96 Room Air 05/22/17 04:22 36.8 122 22 152/97 (115) 96 Room Air 05/22/17 00:35 Room Air 05/22/17 00:04 36.9 113 20 147/96 (113) 97 Room Air 05/21/17 16:00 Room Air 05/21/17 15:29 37.0 120 16 156/96 (116) 96 Lab Results: Results Past 24 Hours Test 05/22/17 06:01 Range/Units White Blood Count 10.04 4.8-10.8 K/uL Red Blood Count 3.93 4.7-6.1 M/uL Hemoglobin 9.7 14.0-18.0 g/dL Hematocrit 29.3 42-52 % Mean Corpuscular Volume 74.6 80-100 fL Mean Corpuscular Hemoglobin 24.7 25-34 pg Mean Corpuscular Hemoglobin Concent 33.1 32-36 g/dl Platelet Count 260 130-400 K/uL Mean Platelet Volume 8.4 7.4-10.4 fL Neutrophils (%) (Auto) 75.7 % Lymphocytes (%) (Auto) 10.9 % Monocytes (%) (Auto) 8.1 % Eosinophils (%) (Auto) 3.8 % Basophils (%) (Auto) 0.3 % Neutrophils # (Auto) 7.61 1.4-6.5 K/uL Lymphocytes # (Auto) 1.09 1.2-3.4 K/uL Monocytes # (Auto) 0.81 0.11-0.59 K/uL Eosinophils # (Auto) 0.38 0-0.5 K/uL Basophils # (Auto) 0.03 0-0.2 K/uL RDW Standard Deviation 48.7 36.4-46.3 fL RDW Coefficient of Variation 17.9 11.5-14.5 % Immature Granulocyte % (Auto) 1.2 % Immature Granulocyte # (Auto) 0.12 0.00-0.02 K/uL Sodium Level 130 136-145 mmol/L Potassium Level 3.4 3.5-5.1 mmol/L Chloride Level 95 98-107 mmol/L Carbon Dioxide Level 24 21-32 mmol/L Anion Gap 10.0 3-11 mmol/L Blood Urea Nitrogen 16 7-18 mg/dl Creatinine 0.67 0.60-1.40 mg/dl Est Creatinine Clear Calc Drug Dose 149.2 ml/min Estimated GFR () 145.3 Estimated GFR (Non- 125.4 BUN/Creatinine Ratio 24.0 10-20 Random Glucose 96 70-99 mg/dl Calcium Level 7.8 8.5-10.1 mg/dl Magnesium Level 1.6 1.8-2.4 mg/dl
[2017-05-22] MEDS: MAGNESIUM OXIDE 400 MG TAB PO SCH (20:00)
[2017-05-22] MEDS: KETOROLAC TROMETHAMINE 15 MG/ML VIAL IV. PRN (22:00)
[2017-05-22] MEDS: MAGNESIUM SULFATE 1GM / D5W 1 GM in PREMIXED IN D5W 100 ML IV SCH ×2 (22:00→23:19)
[2017-05-22] MEDS: LORAZEPAM 2 MG/ML 1 ML VIAL IV PRN (22:00)
[2017-05-23] MEDS: HYDROmorphone INJ 1 MG/ML SYR IV PRN (03:16)
[2017-05-23] MEDS: OXYCODONE HCL IR 5 MG TAB (IMMEDIATE RELEASE) PO PRN ×3 (03:54→09:28)
[2017-05-23 06:16] LABS: BASO % 0.3 %; BASO ABS # 0.03 K/uL (0-0.2); EOS % 2.9 %; HEMATOCRIT 27.4 % (42-52); IG# 0.14 K/uL (0.00-0.02); LYMPH % 11.6 %; LYMPH ABS # 1.21 K/uL (1.2-3.4); MEAN CELL VOLUME 75.1 fL (80-100); MEAN CORPUSCULAR HEMOGLOBIN 24.7 pg (25-34); MEAN CORPUSCULAR HGB CONC 32.8 g/dl (32-36); MEAN PLATELET VOLUME 8.4 fL (7.4-10.4); MONO % 11.6 %; MONO ABS # 1.21 K/uL (0.11-0.59); NEUT % 72.3 %; NEUT ABS # 7.51 K/uL (1.4-6.5); PLATELET COUNT 263 K/uL (130-400); RED CELL DISTRIBUTION WIDTH CV 18.3 % (11.5-14.5); RED CELL DISTRIBUTION WIDTH SD 50.3 fL (36.4-46.3)
[2017-05-23 08:16] VITALS: BP 160/109; PULSE 120; TEMP 36.7; O2SAT 95
[2017-05-23] MEDS: METHADONE HCL 10 MG TAB PO SCH (09:28)
[2017-05-23] MEDS: MAGNESIUM OXIDE 400 MG TAB PO SCH (09:29)
[2017-05-23] MEDS: DOCUSATE SODIUM/SENNA 50/8.6MG TAB PO SCH (09:29)
[2017-05-23] MEDS: ENALAPRILAT IV 1.25 MG in DEXTROSE 5% 25ML 25 ML IV SCH (09:30)
[2017-05-23] MEDS: LEVETIRACETAM IV 500 MG in DEXTROSE 5% 100ML 100 ML IV SCH (09:34)
[2017-05-23] MEDS ORDERED: NURSING VERBAL MED ORDER ONE (09:45)
--- NOTE | 2017-05-23 09:59 | Palliative Care Progress Note ---
Palliative Care Progress Note Date of Service May 23, 2017. Subjective Pt evaluation today including: conversation w/ patient, conversation w/ family , physical exam, chart review, conversation w/ [facility] consultant (Dr. Felix, Dr. Echevarria), review of inpatient medication list Pain: back and abdominal pain PO Intake: minimal Voiding: no voiding problems Patient is awake this morning, slightly drowsy. Oriented x4. Family at bedside. Still having back and abdominal pain anywhere from 5-10/25. Had total of 5.5 IV Dilaudid and 90mg PO oxycodone in last 24 hours on top of his methadone 10mg BID. Is to be leaving today around noon to go home with hospice. Review of Systems Constitutional: + weakness ENT: No trouble swallowing Respiratory: No cough, No shortness of breath Cardiac: No chest pain, No edema Abdomen: + pain, + nausea, No vomiting Male : No problem reported Psychiatric: No anxiety Objective Vital Signs Date Time Temp Pulse Resp B/P (MAP) Pulse Ox O2 Delivery O2 Flow Rate FiO2 05/23/17 08:16 36.7 120 16 160/109 (126) 95 Room Air 05/23/17 00:03 Room Air 05/22/17 20:13 Room Air 05/22/17 19:37 37.0 119 20 156/104 (121) 96 Room Air 05/22/17 15:00 Room Air 05/22/17 14:21 37.5 117 16 153/109 (124) 95 05/22/17 11:16 36.9 110 18 153/108 (123) 96 Physical Exam General Appearance: no apparent distress, + cachetic, + thin ENT: hearing grossly normal Neck: supple, no JVD Respiratory/Chest: no respiratory distress, no accessory muscle use, + pertinent finding (room air) Cardiovascular: regular rate, rhythm, no edema Abdomen: normal bowel sounds, soft Neurologic/Psychiatric: oriented x 3, + pertinent finding (drowsy) Skin: + pallor Laboratory Results Last 24 Hours Test 05/23/17 05:43 White Blood Count 10.40 K/uL Red Blood Count 3.65 M/uL Hemoglobin 9.0 g/dL Hematocrit 27.4 % Mean Corpuscular Volume 75.1 fL Mean Corpuscular Hemoglobin 24.7 pg Mean Corpuscular Hemoglobin Concent 32.8 g/dl Platelet Count 263 K/uL Mean Platelet Volume 8.4 fL Neutrophils (%) (Auto) 72.3 % Lymphocytes (%) (Auto) 11.6 % Monocytes (%) (Auto) 11.6 % Eosinophils (%) (Auto) 2.9 % Basophils (%) (Auto) 0.3 % Neutrophils # (Auto) 7.51 K/uL Lymphocytes # (Auto) 1.21 K/uL Monocytes # (Auto) 1.21 K/uL Eosinophils # (Auto) 0.30 K/uL Basophils # (Auto) 0.03 K/uL RDW Standard Deviation 50.3 fL RDW Coefficient of Variation 18.3 % Immature Granulocyte % (Auto) 1.3 % Immature Granulocyte # (Auto) 0.14 K/uL Assessment and Plan Problem list: Pain- back and abdominal Seizure activity- none since 3/4 Colon cancer with peritoneal mets Goals of care Palliative care recs: discussed with patient, family, Dr. Echevarria and Dr. Felix. -Discontinue IV Dilaudid. -Discontinue PO Roxicodone. -Discontinue IV lorazepam. -Start Roxanol 20mg PO/SL Q2h PRN pain or SOB. -Switch Keppra to 500mg PO oral solution BID. -Start lorazepam 1mg PO/SL TID scheduled and 1mg PO/SL PRN seizure activity. -Continue methadone 10mg PO BID. -Plan is for patient to go home with hospice today around noontime. Family to provide 24/7 care. Total time spent 35 minutes with >50% of time spent at bedside with patient and family discussing medications and plan of care. Palliative Performance Scale: 40 % Discharge planning: home with Hospice
[2017-05-23] MEDS ORDERED: LORAZEPAM 1 MG TAB SL PRN (10:30)
[2017-05-23] MEDS ORDERED: OXYCODONE HCL 20 MG/1 ML UDP PO PRN (10:30)
[2017-05-23] MEDS: MoRPHine SULFATE 10 MG/0.5 ML UDP PO PRN ×3 (10:41→14:20)
[2017-05-23 11:14] VITALS: BP 160/109; PULSE 120; TEMP 36.7; O2SAT 95
[2017-05-23] MEDS ORDERED: ATV1 SL (11:19)
[2017-05-23] MEDS ORDERED: RXNS10 PO (11:19)
[2017-05-23] MEDS ORDERED: KPPSUDL500 PO (11:19)
[2017-05-23] MEDS ORDERED: MGNO400 PO (11:19)
[2017-05-23] MEDS ORDERED: MRLP17X PO (11:19)
[2017-05-23 11:21] VITALS: BP 154/108; PULSE 119; TEMP 36.5; O2SAT 96
--- NOTE | 2017-05-23 11:21 | Discharge Instructions ---
Discharge Instructions Date of Service May 23, 2017. Admission Reason for Admission: Hyponatremia Discharge Discharge Diagnosis / Problem: Metastatic Colon Cancer,Seizure,Chronic pain Discharge Goals Goal(s): Prevent Disease Progression Activity Recommendations Activity Limitations: as noted below (Hospice half-way) . Instructions / Follow-Up Instructions / Follow-Up As Per Hospice care Current Hospital Diet Patient's current hospital diet: Regular Diet Discharge Diet Recommended Diet: Regular Diet Pending Studies Studies pending at discharge: no Medical Emergencies . Who to Call and When: Medical Emergencies: If at any time you feel your situation is an emergency, please call 911 immediately. . Non-Emergent Contact Non-Emergency issues call your: Primary Care Provider . Past History Medical & Surgical History: (1) Seizure (2) History of colon cancer (3) sigmoid mass (4) Hyponatremia (5) Hypochloremia (6) Abdominal pain . "Provider Documentation" section prepared by Abhishek Echevarria. .
--- NOTE | 2017-05-23 11:51 | Progress Note ---
Internal Med Progress Note Date of Service: May 23, 2017. Provider Documentation: SUBJECTIVE: The patient was seen and examined Moderate distress at rest Will not wear Monitor Complains of nausea Pains is not controlled yet Will increase the pain medications doses and frequency Pain is controlled Was seen by Palliative this morning -medications adjusted OBJECTIVE: Vital Signs-as noted below Exam: General-Moderate distress at rets Eyes-normal ENT-normal Neck-supple Lungs-clear to auscultate bilaterally Heart-regular,no murmur appreciated Abdomen-Soft.lumpy and tender to palpate all over4 Extremities-Trace edema bilaterally Neuro-AA Generally weak and lethargic Lab data as noted below. ASSESSMENT & PLAN: Metastatic Colon Cancer with increasing Abdominal Pain Secondary to metastatic disease Will increase pain medications as per recommendation from Palliative care Discussed with the family members Likely discharge home/facility with Hospice care Appreciate palliative care and social service input pain is reasonably controlled with current medication Will discharge home with Hospice today New onset seizures H/O Metastatic Colon Cancer No evidence of intracranial mets /Leptomeningitis CT head showed no hemorrhage, mass effect, or evidence of acute territorial ischemia MRI head showed leptomeningeal thickening and enhancement seen within the right temporal and occipital lobes. 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 Received loading dose of Keppra Continue on Keppra PO Neurology on board -appreciate input LP was done with no complication-no meningitis Started on on empirical abx with Ampicillin, Rocephin, Vanco, and Acyclovir adding Oncology Consulted-appreciate input Will get an EEG-no seizure activity Continue seizure precaution Suspected Meningitis-Ruled out LP -no evidence of Bacterial Meningitis and no evidence leptomeningeal infiltration Started on on empirical abx with Ampicillin, Rocephin, Vanco, and Acyclovir adding Will discontinue Antibiotics Colorectal cancer status-diagnosed in 2014 post surgery and chemotherapy. CT abd/pelvis showed marked progression of peritoneal metastatic disease as compared to 01/03/2017. There is now evidence of hepatic metastatic disease, as well as retroperitoneal and pelvic sidewall adenopathy. Very Poor prognosis Oncology consulted Palliative care consulted Elevated BP Will add low dose of IV enalapril to control BP Continue monitor BP Anemia Hgb dropped to 7.7 Will transfuse 2 units PRBC No signs of active bleeding Monitor CBC Tachycardia Possible related to Low hgb and low platelet Transfuse 2 units PRBC Continue monitor in tele Electrolytes Imbalance Likely secondary to poor intake Will supplement and recheck DVT px on SCDs (recent LP) CODE STATUS ::DNR Discussed with the Sister and other family members Discharge home with hospice care Vital Signs: Date Time Temp Pulse Resp B/P (MAP) Pulse Ox O2 Delivery O2 Flow Rate FiO2 05/23/17 11:21 36.5 119 18 154/108 (123) 96 Room Air 05/23/17 11:14 36.7 120 16 95 Room Air 05/23/17 09:30 Room Air 05/23/17 08:16 36.7 120 16 160/109 (126) 95 Room Air 05/23/17 00:03 Room Air 05/22/17 20:13 Room Air 05/22/17 19:37 37.0 119 20 156/104 (121) 96 Room Air 05/22/17 15:00 Room Air 05/22/17 14:21 37.5 117 16 153/109 (124) 95 Lab Results: Results Past 24 Hours Test 05/23/17 05:43 Range/Units White Blood Count 10.40 4.8-10.8 K/uL Red Blood Count 3.65 4.7-6.1 M/uL Hemoglobin 9.0 14.0-18.0 g/dL Hematocrit 27.4 42-52 % Mean Corpuscular Volume 75.1 80-100 fL Mean Corpuscular Hemoglobin 24.7 25-34 pg Mean Corpuscular Hemoglobin Concent 32.8 32-36 g/dl Platelet Count 263 130-400 K/uL Mean Platelet Volume 8.4 7.4-10.4 fL Neutrophils (%) (Auto) 72.3 % Lymphocytes (%) (Auto) 11.6 % Monocytes (%) (Auto) 11.6 % Eosinophils (%) (Auto) 2.9 % Basophils (%) (Auto) 0.3 % Neutrophils # (Auto) 7.51 1.4-6.5 K/uL Lymphocytes # (Auto) 1.21 1.2-3.4 K/uL Monocytes # (Auto) 1.21 0.11-0.59 K/uL Eosinophils # (Auto) 0.30 0-0.5 K/uL Basophils # (Auto) 0.03 0-0.2 K/uL RDW Standard Deviation 50.3 36.4-46.3 fL RDW Coefficient of Variation 18.3 11.5-14.5 % Immature Granulocyte % (Auto) 1.3 % Immature Granulocyte # (Auto) 0.14 0.00-0.02 K/uL
[2017-05-23] MEDS ORDERED: LORAZEPAM 1 MG TAB SL SCH (14:00)
[2017-05-23] MEDS ORDERED: LEVETIRACETAM SOLN 500 MG/5 ML UDP PO SCH (20:00)
== END 2017-05-23 14:33 | disposition hospice, home (50) | DRG 375 ==
LOC: EDBD 00:10 → C.EDB 00:12 → C.2T 02:28 → EDBEDREQ 02:32 → ENRESERV 02:51 → C.2T 09:03 → ENRESERV 05-21 10:48 → C.4E 05-21 12:14
PROVIDERS: ADMIT Internal Medicine; ATTEND Internal Medicine
PROC: 009U3ZX Drainage of Spinal Canal, Percutaneous Approach, Diagnostic (ICD-10-PCS; principal; 2017-05-19)
DX: C19 Malignant neoplasm of rectosigmoid junction (principal); C80.0 Disseminated malignant neoplasm, unspecified; E87.1 Hypo-osmolality and hyponatremia; R00.0 Tachycardia, unspecified; E87.6 Hypokalemia; K59.03 Drug induced constipation; D64.9 Anemia, unspecified; R56.9 Unspecified convulsions; G89.29 Other chronic pain; J45.909 Unspecified asthma, uncomplicated; T40.605A Adverse effect of unspecified narcotics, initial encounter; Z51.5 Encounter for palliative care; Z66 Do not resuscitate; Z79.899 Other long term (current) drug therapy; Z98.890 Other specified postprocedural states; Z87.891 Personal history of nicotine dependence